=== PATIENT | female | born 1950 | race Caucasian/White ===

== ENCOUNTER 2019-12-20 03:49 | Emergency (ER) | payer MEDICARE, SELFPAY ==
--- NOTE | ~2019-12-20 | XR_ITS ---
XR hip LT 2V w AP pelvis 12/20/2019 05:08 Indication: Left hip pain. Recent fall. Procedure: 4 views of the left hip including AP pelvis Comparison: No prior studies for comparison. Findings: There is lower lumbar spondylosis. There are mild degenerative changes of the hips. No acut e fracture or traumatic malalignment. Impression: 1: No acute fracture. Reviewed, dictated and finalized at location A. AL AND STOCK ASSOCIATE Impression: 1: No acute fracture.
[2019-12-20 03:50] VITALS: BP 185/71; PULSE 88; RESP 20; TEMP 36.6; O2SAT 100
--- NOTE | 2019-12-20 04:51 | ED.LOWEXIN ---
HPI - Extremity Injury (Lower) General Chief Complaint: Extremity Injury, Lower Stated Complaint: L HIP PAIN Time Seen by Provider: 12/20/19 04:15 History of Present Illness HPI Narrative: She fell onto her left hip 12 days ago at [facility] and was seen there at that time. She had x-rays done then, which were negative. She was later seen by her PCP and prescribed norco,which she says is not working. She was also set up with physical therapy. She came in today, because she says the pain is no better. it is in her left hip and radiates down the left leg. She says that she is barely able to walk due to pain. She was noted to have walked in from the car. Related Data Home Medications Medication Instructions Recorded Confirmed escitalopram oxalate 20 mg tablet 20 mg PO DAILY tablet 09/25/19 amlodipine 10 mg tablet 10 mg PO DAILY 10/26/19 aspirin 325 mg tablet,delayed 325 mg PO DAILY 10/26/19 release clopidogrel 75 mg tablet 75 mg PO DAILY 10/26/19 fenofibrate nanocrystallized 145 145 mg PO DAILY 10/26/19 mg tablet insulin aspar prt-insulin aspart See Rx Instructions .ROUTE .COMPLEX 10/26/19 100 unit/mL (70-30) subcutaneous soln levothyroxine 175 mcg tablet 175 mcg PO DAILY 10/26/19 pantoprazole 40 mg tablet,delayed 40 mg PO DAILY tablet 10/26/19 release pravastatin 80 mg tablet 80 mg PO DAILY 10/26/19 budesonide 3 mg PO DAILY 11/30/19 diphenoxylate-atropine 1 tablet PO TID PRN 11/30/19 gabapentin 300 mg capsule 300 mg PO .daily at bedtime cap 12/06/19 ergocalciferol (vitamin D2) 1,250 50,000 unit PO WEEKLY 12/08/19 mcg (50,000 unit) capsule Allergies Allergy/AdvReac Type Severity Reaction Status Date / Time Cephalosporins Allergy Mild Rash Verified 12/20/19 03:56 phenylephrine Allergy Mild Unknown Verified 12/20/19 03:56 pyrilamine Allergy Mild Unknown Verified 12/20/19 03:56 adhesive tape Allergy Unknown Rash Verified 12/20/19 03:56 cefaclor Allergy Unknown Unknown Verified 12/20/19 03:56 chlorpheniramine Allergy Unknown Unknown Verified 12/20/19 03:56 erythromycin base Allergy Unknown Unknown Verified 12/20/19 03:56 Penicillins Allergy Unknown Unknown Verified 12/20/19 03:56 Sulfa (Sulfonamide Allergy Unknown Unknown Verified 12/20/19 03:56 Antibiotics) atorvastatin AdvReac Mild Muscle Verified 12/20/19 03:56 Spasms AZATADINE MALEATE Allergy Unknown Dyspnea / Uncoded 05/20/19 09:18 SOB CHLORPHENIRAMINE TANNATE Allergy Unknown Dyspnea / Uncoded 05/20/19 09:18 SOB METOCLOPRAMIDE HCL Allergy Unknown Palpitation Uncoded 05/20/19 09:18 s PHENYLEPHRINE TANNATE Allergy Unknown Dyspnea / Uncoded 05/20/19 09:18 SOB PSEUDOEPHEDRINE SULFATE Allergy Unknown Dyspnea / Uncoded 05/20/19 09:18 SOB PYRILAMINE TANNATE Allergy Unknown Dyspnea / Uncoded 05/20/19 09:18 SOB SURGICAL TAPE AdvReac Mild BLISTERS Uncoded 05/29/18 14:46 Review of Systems Review of Systems: All systems reviewed & are unremarkable except as noted in HPI and below Constitutional: Constitutional: Denies fever(s) and Denies weakness Eyes: Eyes: Denies change in vision Cardiovascular: Cardiovascular: Denies chest pain Respiratory: Respiratory: Denies wheezing Gastrointestinal: Gastrointestinal: Denies nausea Genitourinary: Genitourinary: Denies dysuria Musculoskeletal: Musculoskeletal: Reports back pain PMFSH Past Medical History Medical History A-fib Aneurysm Anxiety Arthritis Asthma Bronchitis CAD (coronary artery disease) Carpal tunnel syndrome Chronic colitis Depression Diabetes type 2, controlled Falls frequently Fibromyalgia GERD (gastroesophageal reflux disease) HLD (hyperlipidemia) HTN (hypertension) Hypothyroidism IBS (irritable bowel syndrome) Memory problem Peripheral neuropathy Pneumonia Sleep apnea UTI (urinary tract infection) Ventral hernia Surgical History Surgical History (Reviewed 12/20/19
[2019-12-20 05:50] VITALS: BP 148/77; PULSE 98; RESP 18; O2SAT 98
== END 2019-12-20 05:52 | disposition home or self-care (01) ==
PROVIDERS: Emergency Provider Emergency Medicine; PCP Emergency Medicine
DX: M25.552 Pain in left hip (principal); I48.91 Unspecified atrial fibrillation; M19.90 Unspecified osteoarthritis, unspecified site; J45.909 Unspecified asthma, uncomplicated; I25.10 Atherosclerotic heart disease of native coronary artery without angina pectoris; E11.42 Type 2 diabetes mellitus with diabetic polyneuropathy; M79.7 Fibromyalgia; K21.9 Gastro-esophageal reflux disease without esophagitis; E78.5 Hyperlipidemia, unspecified; I10 Essential (primary) hypertension; E03.9 Hypothyroidism, unspecified; K58.9 Irritable bowel syndrome, unspecified; G47.30 Sleep apnea, unspecified; F41.9 Anxiety disorder, unspecified; F32.9 Major depressive disorder, single episode, unspecified; Z87.440 Personal history of urinary (tract) infections; Z98.84 Bariatric surgery status; Z87.891 Personal history of nicotine dependence; Z79.82 Long term (current) use of aspirin; Z79.4 Long term (current) use of insulin
CPT/HCPCS: 73502; 73521; 99283

== ENCOUNTER 2020-01-21 12:58 | Inpatient (IN) | payer MEDICARE, SELFPAY ==
[2020-01-21] VITALS (15 sets, daily range): BP systolic 136–172; BP diastolic 56–99; PULSE 60–80; RESP 11–25; TEMP 36.3–36.6; O2SAT 89–100; BMI 34.4
--- NOTE | ~2020-01-21 | US_ITS ---
EXAMINATION: US carotid duplex BI EXAM DATE: 01/22/2020 17:42 INDICATION: Stroke. TECHNIQUE: Grayscale, color and pulsed Doppler images of the cervical carotid arteries were obtained . The degree of vessel stenosis is placed in one of the following categories: normal, <50% stenosis, 50-69% stenosis, >=70% stenosis but less than near-occlusion, near-occlusion, or occlusion. Note that percent stenosis relative to normal distal artery lumen diameter is indirectly measured from velocit y measurements as described by Thompson, et al. Radiology 2003; 229:340-346. There is no prior study fo r comparison. FINDINGS: RIGHT SIDE: Right common carotid artery peak systolic velocity (PSV in cm/s): 68 Right bulb/internal carotid artery peak systolic velocity (PSV in cm/s): 10 Right internal carotid artery end diastolic velocity (EDV in cm/s): 48 Right ICA/CCA peak systolic ratio: 0.7 Right external carotid artery peak systolic velocity (PSV in cm/s): 139 Right vertebral artery antegrade flow: yes There is mild carotid bulb plaque. Velocity and Doppler waveforms in the common and internal carotid arteries is normal. LEFT SIDE: Left common carotid artery peak systolic velocity (PSV in cm/s): 95 Left bulb/internal carotid artery peak systolic velocity (PSV in cm/s): 94 Left internal carotid artery end diastolic velocity (EDV in cm/s): 6 Left ICA/CCA peak systolic ratio: 1.0 Left external carotid artery peak systolic velocity (PSV in cm/s): 79 Left vertebral artery antegrade flow: yes There is minimal carotid bulb plaque. Velocity and Doppler waveforms in the common and internal carotid arteries is normal. IMPRESSION: 1. Less than 50 percent stenosis in the right internal carotid artery. 2. Less than 50 percent stenosis in the left internal carotid artery. Reviewed, dictated and finalized at location A. E PAPER HAMMERMILL OPERATOR
--- NOTE | ~2020-01-21 | XR_ITS ---
XR chest 2V DATE: 01/21/2020 16:29 INDICATION: Dizziness. Frequent falls. Increased weakness. History of cardiac disease. TECHNIQUE: AP and lateral views COMPARISON: 03/12/2019 CT chest abdomen pelvis 07/15/2018 two-view chest FINDINGS: Heart size appears within normal range. environmental monitoring specialist device is noted in the left chest w all anteriorly. Aortic arch calcification. No pleural effusion or pulmonary vascular congestion or pneumothorax. The lungs are clear of infiltrate or consolidation. No hilar or mediastinal enlargement. IMPRESSION: No active cardiopulmonary disease Reviewed, dictated and finalized at location B. SURGEON
--- NOTE | ~2020-01-21 | MR_ITS ---
EXAMINATION: MR lumbar spine wo con EXAM DATE: 01/22/2020 19:55 INDICATION: Left leg weakness. TECHNIQUE: Multi-sequential, multiplanar MR images of the lumbar spine were obtained without contrast . Sagittal T1, T2, T2 fat saturation images. Axial T2 weighted images. Correlation is made to CT ab [facility] pelvis 11/30/2019. FINDINGS: There is acute appearing mild to moderate burst fracture of the L4 vertebral body (40% loss of height), new compared to CT scan from November. There is 2 to 3 mm retropulsion of the superior en dplate. Mild disc disease L1-2 and L2-3. The conus medullaris terminates at the T12-L1 level and has normal signal intensity and morphology. The vertebral bodies are aligned in the AP dimension. Ricardo joel soft tissue is unremarkable. Level by level evaluation: T12-L1: Disc does not extend beyond the endplate margin. Facet arthropathy: Mild. Neural foraminal stenosis: No stenosis. Central canal stenosis: No stenosis. L1-L2: There is a mild diffuse disc bulge. Facet arthropathy: Mild. Neural foraminal stenosis: Mild bilateral. Central canal stenosis: No stenosis. L2-L3: There is a moderate diffuse disc bulge. Facet arthropathy: Mild. Neural foraminal stenosis: Moderate left, mild to moderate right. Central canal stenosis: Mild to moderate. L3-L4: There is a mild to moderate diffuse disc bulge. Facet arthropathy: Mild to moderate. Ligamentum flavum enlargement. Neural foraminal stenosis: Moderate to severe right, moderate left. Central canal stenosis: Moderate. L4-L5: There is a mild diffuse disc bulge. Facet arthropathy: Moderate. Neural foraminal stenosis: Moderate bilateral. Central canal stenosis: Mild to moderate. L5-S1: There is a mild diffuse disc bulge. Facet arthropathy: Moderate. Neural foraminal stenosis: Mild bilateral. Central canal stenosis: Mild. IMPRESSION: 1. Acute L4 burst fracture, mild to moderate loss of height. 2. Lumbar spondylosis as detailed above. Reviewed, dictated and finalized at location A. RTISING VICE PRESIDENT
--- NOTE | ~2020-01-21 | MR_ITS ---
EXAMINATION: MR brain/brain stem wo/w con EXAM DATE: 01/22/2020 19:54 INDICATION: Left-sided hemiparesis. TECHNIQUE: Magnetic resonance imaging (MRI) of the brain/brain stem obtained without contrast. Sagit mahendra T1, axial diffusion, gradient echo (T2*), T1, T2, FLAIR sequences obtained. Patient was then inj ected with 16 cc intravenous Multihance contrast. Axial and coronal postcontrast T1 weighted sequence s obtained. Comparison is made to prior examination from 09/08/2015. FINDINGS: Punctate region of restricted diffusion in the right side of the moe, probably acute infar ction. There is large old right posterior cerebral artery infarction. There is an old right basal zac glia lacunar infarction. No acute intraparenchymal hemorrhage or brain mass. No extra-axial collectio ns or obstructive hydrocephalus. There is moderate microangiopathy and mild cerebral atrophy. Flow vo ids are seen in the cerebral arteries on the T2 weighted sequences consistent with their expected pat ency. Orbits and soft tissues are unremarkable. IMPRESSION: 1. Punctate acute right pontine infarction. 2. Large old right PAYROLL LEAD, basal ganglia lacunar infarctions. 3. Age-related findings. Reviewed, dictated and finalized at location A. MIXER HELPER
--- NOTE | ~2020-01-21 | MR_ITS ---
EXAMINATION: MR cervical spine wo con EXAM DATE: 01/22/2020 19:55 INDICATION: Left hand weakness. TECHNIQUE: Multi-sequential, multiplanar MR images of the cervical spine were obtained without contra st. Axial T2, axial T2 MERGE sequence. Sagittal T1, T2, T2 fat saturation images also obtained. Cor relation is made to CT cervical spine 03/12/2019. FINDINGS: There is moderate disc disease C4-C7. There is moderate central canal stenosis at C4-5 wit h increased cord T2 signal, appearance could indicate mild cord edema. Can't exclude some component o f chronic encephalomalacia. Patient might benefit from steroid administration and consider neurosurgi sunshnie consult. There is a hemangioma in the T3 vertebral body. Paraspinal soft tissue is unremarkable. Level by level evaluation: C2-C3: Disc does not extend beyond the endplate margin. Uncovertebral joint arthropathy: Mild right. Facet joint arthropathy: Mild bilateral. Neural foraminal stenosis: No stenosis. Central canal stenosis: No stenosis. C3-C4: Disc does not extend beyond the endplate margin. Uncovertebral joint arthropathy: Mild bilateral. Facet joint arthropathy: Mild bilateral. Neural foraminal stenosis: Mild right. Central canal stenosis: No stenosis. C4-C5: There is a mild to moderate diffuse disc bulge. Uncovertebral joint arthropathy: Severe right, moderate left. Facet joint arthropathy: Mild bilateral. Neural foraminal stenosis: Severe right, moderate left. Central canal stenosis: Moderate. Central canal measures 5 mm in mid sagittal AP diameter . C5-C6: There is a mild diffuse disc bulge. Uncovertebral joint arthropathy: Moderate to severe bilateral. Facet joint arthropathy: Mild bilateral. Neural foraminal stenosis: Mild to moderate bilateral. Central canal stenosis: Mild to moderate . Central canal measures 6-7 mm in mid sagittal AP diameter . C6-C7: There is a mild diffuse disc bulge. Uncovertebral joint arthropathy: Moderate to severe right, moderate left. Facet joint arthropathy: Minimal bilateral. Neural foraminal stenosis: Moderate bilateral, right greater than left. Central canal stenosis: No stenosis. C7-T1: Disc does not extend beyond the endplate margin. Uncovertebral joint arthropathy: Mild to moderate right, mild left. Facet joint arthropathy: Mild bilateral. Neural foraminal stenosis: Mild right. Central canal stenosis: No stenosis. IMPRESSION: 1. C4-5 moderate central canal stenosis with small region increased T2 cord signal which could be ed saloni, but can't exclude that this is chronic encephalomalacia. Consider steroid treatment, neurosurgic al evaluation. 2. Lesser spondylosis at other levels. Reviewed, dictated and finalized at location A. CULTURAL EDUCATION PROFESSOR IMPRESSION: 1. C4-5 moderate central canal stenosis with small region increased T2 cord si gnal which could be edema, but can't exclude that this is chronic encephalomala christopher. Consider steroid treatment, neurosurgical evaluation. 2. Lesser spondylosis at other levels.
--- NOTE | 2020-01-21 13:03 | ECG_ITS ---
Measurements Intervals [place] Rate: 71 P: -46 DC: 141 QRS: 26 QRSD: 83 T: 14 QT: 388 QTc: 423 Interpretive Statements SINUS RHYTHM BASELINE ARTIFACT- I, II, III, AVR, AVL, AVF, V1-V5 BORDERLINE ECG Electronically Signed On 01-21-2020 13:19:05 CHISELER HEAD by Moises Cuello D.O.
[2020-01-21 13:24] LABS: Basophils Percent Auto 0.5 % (0.2-1.2); Eosinophils Percent Auto 0.4 % (0-4.4); Hematocrit 46.1 % (37.0-47.0); Hemoglobin 14.3 g/dL (12.0-15.0); Immature Granulocyte Absolute 0.03 K/mm3 (0.00-0.031); Immature Granulocyte Percent A 0.4 % (0-0.5); Lymphocytes Absolute Auto 1.69 K/mm3 (0.9-3.2); Lymphocytes Percent Auto 22.2 % (18.3-44.2); Mean Corpuscular Hemoglobin 25.8 pg (26-34); Mean Corpuscular Volume 83.2 fl (80-100); Mean Platelet Volume 10.6 fl (7.4-10.4); Monocytes Absolute Auto 0.4 K/mm3 (0.1-0.6); Monocytes Percent Auto 5.5 % (2.6-8.5); Neutrophils Absolute Auto 5.4 K/mm3 (1.3-6.7); Platelet Count Result 209 k/mm3 (150-375); Red Blood Count 5.54 M/mm3 (4.2-5.4); Red Cell Distribution Width 14.6 % (11.5-14.5); White Blood Count 7.6 K/mm3 (4.5-10.0)
[2020-01-21 13:40] LABS: Alanine Aminotransferase 19 U/L (4-35); Albumin Level 3.9 g/dL (3.5-5.1); Alkaline Phosphatase 97 U/L (38-126); Aspartate Amino Transferase 19 U/L (14-36); Bilirubin,Total 0.5 mg/dL (0.2-1.3); Blood Urea Nitrogen 13 mg/dL (7-17); Calcium 9.7 mg/dL (8.4-10.2); Carbon Dioxide 34 mmol/L (22-30); Chloride 99 mmol/L (98-107); Estimated Glomerular Filt Rate > 60; Glucose 183 mg/dL (65-105); Potassium 4.2 mmol/L (3.4-5.0); Sodium 137 mmol/L (137-145)
--- NOTE | 2020-01-21 14:28 | ED.WEAKNESS ---
HPI - Weakness General Chief complaint: Weakness Stated complaint: Falls Time Seen by Provider: 01/21/20 14:28 Source: patient Mode of arrival: ambulatory Limitations: no limitations History of Present Illness HPI Narrative: Pt is a 69 y/o female who presents to the ED with c/o generalized weakness that started in November 2019 and has been worsening in the last 2 weeks. Pt states that she fell on concrete in November while at [facility] for a scheduled angiogram. Pt was getting an angiogram of her rt brain aneurysm that she has coiled. Her scans came back negative. Pt had scans of her back after falling that came back negative. She followed up with her PCP, Dr. Armstrong who Rx her Hydrocodone for her back pain. Pt states that it helped the pain and she was referred to a pain management doctor. She got injection in her back and hips, but she has been feeling more weak and the injections have not been helping. She states that it has gotten so bad that she cannot get up off the toilet on her own adn can barely walk with her cane. Pt is scheduled to get a MRI and is supposed to start PT but she states she feels too weak to start PT. She reports dizziness when standing and states that she has been urinating normally. Pt has a H/O chronic diarrhea and notes her last BM was diarrhea and it was 2 days ago. Complaint: generalized weakness Onset (ago): month(s) (3) Duration: progressively worsening Location: generalized Context: trauma/injury (back injury) Associated symptoms: other (dizziness) Related Data Home Medications Medication Instructions Recorded Confirmed escitalopram oxalate 20 mg tablet 20 mg PO DAILY tablet 09/25/19 amlodipine 10 mg tablet 10 mg PO DAILY 10/26/19 aspirin 325 mg tablet,delayed 325 mg PO DAILY 10/26/19 release clopidogrel 75 mg tablet 75 mg PO DAILY 10/26/19 fenofibrate nanocrystallized 145 145 mg PO DAILY 10/26/19 mg tablet insulin aspar prt-insulin aspart See Rx Instructions .ROUTE .COMPLEX 10/26/19 100 unit/mL (70-30) subcutaneous soln levothyroxine 175 mcg tablet 175 mcg PO DAILY 10/26/19 pantoprazole 40 mg tablet,delayed 40 mg PO DAILY tablet 10/26/19 release pravastatin 80 mg tablet 80 mg PO DAILY 10/26/19 budesonide 3 mg PO DAILY 11/30/19 diphenoxylate-atropine 1 tablet PO TID PRN 11/30/19 gabapentin 300 mg capsule 300 mg PO .daily at bedtime cap 12/06/19 ergocalciferol (vitamin D2) 1,250 50,000 unit PO WEEKLY 12/08/19 mcg (50,000 unit) capsule Allergies Allergy/AdvReac Type Severity Reaction Status Date / Time Cephalosporins Allergy Mild Rash Verified 12/20/19 03:56 phenylephrine Allergy Mild Unknown Verified 12/20/19 03:56 pyrilamine Allergy Mild Unknown Verified 12/20/19 03:56 adhesive tape Allergy Unknown Rash Verified 12/20/19 03:56 cefaclor Allergy Unknown Unknown Verified 12/20/19 03:56 chlorpheniramine Allergy Unknown Unknown Verified 12/20/19 03:56 erythromycin base Allergy Unknown Unknown Verified 12/20/19 03:56 Penicillins Allergy Unknown Unknown Verified 12/20/19 03:56 Sulfa (Sulfonamide Allergy Unknown Unknown Verified 12/20/19 03:56 Antibiotics) atorvastatin AdvReac Mild Muscle Verified 12/20/19 03:56 Spasms AZATADINE MALEATE Allergy Unknown Dyspnea / Uncoded 05/20/19 09:18 SOB CHLORPHENIRAMINE TANNATE Allergy Unknown Dyspnea / Uncoded 05/20/19 09:18 SOB METOCLOPRAMIDE HCL Allergy Unknown Palpitation Uncoded 05/20/19 09:18 s PHENYLEPHRINE TANNATE Allergy Unknown Dyspnea / Uncoded 05/20/19 09:18 SOB PSEUDOEPHEDRINE SULFATE Allergy Unknown Dyspnea / Uncoded 05/20/19 09:18 SOB PYRILAMINE TANNATE Allergy Unknown Dyspnea / Uncoded 05/20/19 09:18 SOB SURGICAL TAPE AdvReac Mild BLISTERS Uncoded 05/29/18 14:46 Review of Systems Review of Systems: All systems reviewed & are unremarkable except as noted in HPI and below Constitutional: Constitutional: Reports weakness (generalized) Genitourinary: Genitourinary: Denies o
[2020-01-21 15:05] LABS: Creatine Kinase 21 U/L (30-135); Magnesium 1.8 mg/dL (1.6-2.3)
[2020-01-21 15:40] LABS: Thyroid Stimulating Hormone Reflex 0.966 uIU/mL (0.465-4.68)
[2020-01-21 16:07] LABS: Add Urine Microscopic? YES; Appearance Urine Clear (Clear); Bilirubin Urine Negative (Negative); Blood Urine Negative (Negative); Color Urine Straw (Yellow); Glucose Urine UA Negative (Negative); Ketones Urine Negative (Negative); Leukocyte Esterase Ur Negative LEU/UL (Negative); Mucus Urine Rare /lpf; Nitrate Urine Negative (Negative); Protein Urine 2+ mg/dL (Negative); RBC Urine 0-2 /hpf (0-2); Specific Grav Ur 1.012 (1.001-1.035); Squamous Epithelial Cell Urine Rare /hpf (Few); Urobilinogen Urine Negative mg/dL (<2.0); WBC Urine 0-3 /hpf
--- NOTE | 2020-01-21 18:00 | PC.NURSE ---
This patient, Tamiko Leija, was admitted to [facility] Surg Room 330-01. Patient/family oriented to hospital policies and general routines including ID bracelet, bed and alarms, visiting hours, pain management, procedures, bathroom and other care routines, personal items, smoking policy, room service/diet, and visiting hours. Valuables list has been completed. Information on how to activate the Rapid Response Team has been discussed. Patient/Family are encouraged to report perceived risks to care and to ask questions if they do not understand what they are told or what they should do.
[2020-01-21 23:08] LABS: Glucose Point of Care 210 (65-105)
[2020-01-21] MEDS: TRAMADOL HCL 50 MG TABLET PO (23:55)
[2020-01-22 06:00] VITALS: BP 157/59; PULSE 59; RESP 20; TEMP 36.4; O2SAT 99
[2020-01-22] MEDS: LEVOTHYROXINE SODIUM 100 MCG TABLET PO (06:12)
[2020-01-22] MEDS: LEVOTHYROXINE SODIUM 75 MCG TABLET PO (06:12)
[2020-01-22 07:27] LABS: Glucose Point of Care 174 (65-105)
[2020-01-22] MEDS: AMLODIPINE BESYLATE 5 MG TABLET 10 MG PO (08:19)
[2020-01-22] MEDS: PANTOPRAZOLE 40 MG TABLET PO (08:19)
[2020-01-22] MEDS: ESCITALOPRAM OXALATE 10 MG TABLET 20 MG PO (08:19)
[2020-01-22] MEDS: FENOFIBRATE NANOCRYSTALLIZED 145 MG TABLET PO (08:19)
[2020-01-22] MEDS: PRAVASTATIN SODIUM 20 MG TABLET 80 MG PO (08:19)
[2020-01-22] MEDS: CLOPIDOGREL BISULFATE 75 MG TABLET PO (08:19)
[2020-01-22 11:13] LABS: Glucose Point of Care 182 (65-105)
[2020-01-22] MEDS: ALPRAZOLAM 0.5 MG TABLET PO (12:44)
--- NOTE | 2020-01-22 13:04 | PM.IMHP ---
H&P: HPI History of Present Illness Chief complaint: Generalized weakness/low back pain Narrative: Tamiko Leija is a 69 year old female with history of CVA here for left-sided weakness. Patient had 2 strokes in 2012 and in 2015. She had left-sided weakness from this. She is also legally blind in the left eye. She no longer drives. Shows a history of brain aneurysms that had been coiled x2. She was at [facility] in November when she fell on the concrete with head injury. She was there for an angiogram which was completed that day. She states the scans showing no change. She then went to the emergency room and was evaluated and released. Since that time patient states that she has been having worsening weakness in her extremities mostly in the legs. She was seen by pain management and had an injection in the hip for bursitis and also in the low back. An MRI is planned of her lumbar spine. She also was given a back brace. Over the past 2 weeks patient has noted increasing weakness. She has been having trouble standing and when she does stand her legs give out. Left seems to worsen the right. Yesterday morning patient had trouble getting up out of bed from a sitting position. She was helped up by her family and brought to the toilet. After voiding she again was unable to stand off the toilet and had a fall. They were able to get her up. She does complain of dizziness when she rises from to a sitting or standing position. She continues to have the low back pain. Today she states that her left hand is weak as well which is a new finding. This is been going on for the past few days. She is on Plavix chronically. She was taking aspirin but this was stopped in November. Because of the recent fall and continue weakness she was brought to the emergency room evaluation. In the emergency room, patient was hemodynamically stable. X-ray is clear. No CT of the brain was performed. She states her coils are MRI compatible. Labs were unrevealing Ext except for hyperglycemia. She was admitted for further care. Review of Systems Review of Systems: Narrative: Gen - No fever or chills Eye - no double vision or vision changes. 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 ENT - no hearing loss, tinnitus, odynophagia or dysphagia CV - no chest pain or palpitation Pulm - no shortness of breath or cough. She does have sleep apnea but does not wear CPAP. Says her unit broke and has not been repaired yet. GI -no nausea or vomiting. Eating okay. She has chronic diarrhea has been diagnosed with chronic colitis possibly inflammatory bowel disease. Also she states that she had an imaging study showing possible cirrhosis and she has an appointment to have this worked up. No melena. Colonoscopy in October showing colitis - no dysuria or hematuria. Neuro -as above Endo -10 lb weight loss over the past month. She has had decreased intake. Psych -her depression and anxiety symptoms are well controlled. Mood is stable. No suicidal or homicidal ideation. [facility] Past Medical History Medical History A-fib Aneurysm Brain s/p coiling x2 Anxiety Arthritis Asthma Bronchitis CAD (coronary artery disease) pateint states LHC was clear Carpal tunnel syndrome Chronic colitis Depression Diabetes type 2, controlled Falls frequently Fibromyalgia GERD (gastroesophageal reflux disease) History of CVA (cerebrovascular accident) 2012 and 2015 HLD (hyperlipidemia) HTN (hypertension) Hypothyroidism IBS (irritable bowel syndrome) Memory problem Peripheral neuropathy Pneumonia Sleep apnea UTI (urinary tract infection) Ventral hernia Surgical History Surgical History History of carpal tunnel surgery History of hysterectomy History of removal of cyst Hx of appendectomy Hx of cardiac catheterization Hx of cholecystectomy Hx of laparoscopic gastric
[2020-01-22 14:37] VITALS: BP 141/46; PULSE 63; RESP 16; TEMP 36.4; O2SAT 97
--- NOTE | 2020-01-22 14:58 | ECHO_ITS ---
Patient Info Name: Tamiko Leija Age: 69 years : 1950 Gender: Female Ht: 61 in Wt: 182 lbs BSA: 1.92 m2 HR: 60 bpm BP: 157 / 59 mmHg Technical Quality: Good Exam Date: 01/22/2020 2:20 PM Exam Location: [facility] Patient Status: Outpatient Admit Date: 01/21/2020 Staff Ordering Physician: Jose Haskins MD Hemotherapist: Rafita Gold, RAYNE, RT Attending Provider: Jose Haskins MD Exam Type: CA echo doppler color flow Study Info Indications G45.9 - Transient cerebral ischemic attack, unspecified Complete two-dimensional, color flow and Doppler transthoracic echocardiogram is performed. Summary 1. Left ventricular chamber dimension is normal. 2. Left ventricular systolic function is normal, estimated at 65-70%. 3. The left ventricular diastolic function is abnormal. 4. E/e' 11 is mildly elevated. 5. Global longitudinal strain is mildly abnormal at -16.3%. Left Ventricle E/e' 11 is mildly elevated. Global longitudinal strain is mildly abnormal at -16.3%. Left ventricular chamber dimension is normal. Left ventricular systolic function is normal, estimated at 65-70%. The left ventricular diastolic function is abnormal. Right Ventricle Right ventricular chamber dimension is normal. Right ventricular systolic function is normal. Left Atria Left atrial chamber dimension is normal. Right Atria Right atrial chamber dimension is normal. Aortic Valve The aortic valve is trileaflet. There is no aortic valve stenosis. There is no aortic valve regurgitation. Pulmonic Valve There is no pulmonic regurgitation. Mitral Valve There is no mitral valve stenosis. There is no mitral valve regurgitation. Tricuspid Valve There is no tricuspid valve regurgitation. Pericardium/Pleural There is no pericardial effusion. Inferior Vena Cava Normal inferior vena cava with >50% collapse upon inspiration consistent with normal right atrial pressure, 5 mmHg. Aorta The aortic root size at the sinus of Valsalva is normal. Left Ventricular Outflow Tract Name Value Normal LVOT 2D LVOT Diameter 1.9 cm LVOT Doppler LVOT Peak Gradient 5 mmHg LVOT Mean Gradient 2 mmHg LVOT VTI 29 cm LVOT VTI/AV VTI Ratio 0.8 LVOT Stroke Volume 82 ml LVOT CO 4.6 l/min LVOT CI 2.4 l/min/m2 Pulmonic Valve Name Value Normal PV Doppler PV Peak Gradient 4 mmHg Mitral Valve Name Value Normal MV Doppler
[2020-01-22 16:00] VITALS: PULSE 61
[2020-01-22 16:18] LABS: Glucose Point of Care 138 (65-105)
[2020-01-22 20:59] LABS: Ammonia < 9 umol/L (9-30)
[2020-01-22 21:00] VITALS: PULSE 70
[2020-01-22 22:00] VITALS: BP 147/77; PULSE 70; RESP 16; TEMP 36.4; O2SAT 96
[2020-01-22 22:04] LABS: Folic Acid 9.7 ng/mL (2.76->20)
[2020-01-22 23:15] LABS: Glucose Point of Care 247 (65-105)
[2020-01-23] VITALS (14 sets, daily range): BP systolic 144–184; BP diastolic 67–86; PULSE 52–93; RESP 16–20; TEMP 36.4–36.6; O2SAT 91–97
[2020-01-23] MEDS: LEVOTHYROXINE SODIUM 100 MCG TABLET PO (06:31)
[2020-01-23] MEDS: LEVOTHYROXINE SODIUM 75 MCG TABLET PO (06:31)
[2020-01-23 07:58] LABS: Glucose Point of Care 56 (65-105)
[2020-01-23] MEDS: FENOFIBRATE NANOCRYSTALLIZED 145 MG TABLET PO (08:42)
[2020-01-23] MEDS: AMLODIPINE BESYLATE 5 MG TABLET 10 MG PO (08:42)
[2020-01-23] MEDS: PANTOPRAZOLE 40 MG TABLET PO (08:42)
[2020-01-23] MEDS: CLOPIDOGREL BISULFATE 75 MG TABLET PO (08:42)
[2020-01-23] MEDS: ESCITALOPRAM OXALATE 10 MG TABLET 20 MG PO (08:43)
[2020-01-23] MEDS: methylPREDNISolone SOD SUCC 125 MG VIAL 60 MG IV PUSH (09:05)
[2020-01-23] MEDS: ASPIRIN 81 MG CHEWABLE TABLET PO (09:07)
[2020-01-23 10:02] LABS: Glucose Point of Care 132 (65-105)
[2020-01-23 10:02] LABS: Glucose Point of Care 73 (65-105)
[2020-01-23] MEDS: ATORVASTATIN 40 MG TABLET PO (11:37)
[2020-01-23 11:44] LABS: Glucose Point of Care 218 (65-105)
[2020-01-23] MEDS: INSULIN ASPART (*BKC) 100 UNITS/ML SUB-Q (12:03)
--- NOTE | 2020-01-23 12:06 | PM.IMPN ---
Progress Note: A&P Assessment and Plan (1) Acute CVA (cerebrovascular accident): Code(s): I63.9 - Cerebral infarction, unspecified Status: Acute Assessment and Plan: Brain MRI showing a new punctate right pontine infarct. This is most likely causing the left hand weakness. She is already on Plavix. Hx of AFib but transient and not felt to be paroxysmal. Was on ASA but stopped in November. Will resume today. Will also change from Pravachol to Crestor (chose Lipitor but she has had problems with Lipitor in the past). Echo okay. Carotids clear. TRC consult. Continue PT/OT. Eating normally so do not feel she needs ST. Neuro consult. Continue tele. (2) Cervical spinal cord compression: Code(s): G95.20 - Unspecified cord compression Status: Acute Assessment and Plan: MRI showing C4-5 moderate central canal stenosis with small region of increased T2 cord signal which could be edema. She also has moderate to severe neural foraminal stenosis (but severe is on the right). She was started on steroids. Discussed with Dr Rose who is the patient's neurologist. The above findings discussed as well as patient's current condition. He agreed with steroids and recommended rehab in the short term since patient has had a recent stroke. Neuro consult. TRC consult. Continue PT/OT (3) L4 vertebral fracture: Code(s): S32.049A - Unspecified fracture of fourth lumbar vertebra, initial encounter for closed fracture Status: Acute Assessment and Plan: MRI of the lumbar spine showing L4 burst fracture. She has mild pain today. Will continue therapy as tolerated. (4) Generalized weakness: Code(s): R53.1 - Weakness Status: Acute Assessment and Plan: Weakness mostly in the lower extremities per patient. Possibly related to the cervical spine findings or possibly from the moderate lumbar central canal stenosis. She also has sevee right and moderate left L3-4 neural foraminal stenosis. (5) Falls frequently: Code(s): R29.6 - Repeated falls Status: Acute Assessment and Plan: Suspect related to old CVA and related to above. (6) Cirrhosis of liver: Code(s): K74.60 - Unspecified cirrhosis of liver Status: Acute (7) HTN (hypertension): Code(s): I10 - Essential (primary) hypertension Status: Acute Assessment and Plan: BP reviewed on 01/23/20. BP elevated at times. Will allow for permissive HTN given her recent stroke. Tighter control in 4-5 days. Add hydralazine for markedly elevated BP. (8) A-fib: Code(s): I48.91 - Unspecified atrial fibrillation Status: Acute Assessment and Plan: Hx of transient AFib. No evidence of recurrence by tele. Continue tele. 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 As above. Subjective Date/time seen: 01/23/20 12:06 Interval history: 69yo female with hx of CVA, pAFib and DM here for weakness. Yordann feels better. SHe is up to the chair. She walked to the BR with a walker. She feels like her left leg is giving out at times. She is eating normally. No CP or SOB. Lumbar pain worse after MRI (from the table) but better today. Left hand still feels weak and has trouble with gripping. Exam Narrative: Exam Narrative: Gen -NARD sitting up in chair feeding herself Chest - lungs CTA bilaterally, nml RR CV - RRR S1/S2; Tele showing no significnat dysrhythmias, no AFib Abd -soft. NT/ND, +BS Ext - No pedal edema. Neuro - alert, pleasant and cooperative. Psych -normal mood Skin - Warm and dry Objective Data Vital Signs Vital Signs: Vital Signs - 24 hr 01/22/20 14:37
[2020-01-23 12:20] LABS: Glucose Point of Care 280 (65-105)
--- NOTE | 2020-01-23 15:54 | PC.NURSE ---
0900 Patient in bed sleepy, wakes to name, oriented times four, no complaints, blood sugar 56, gave carton of milk, michelle crackers with peanut butte, ordered breakfast, blood sugar raised to 73 and up, see trend.
[2020-01-23] MEDS: TRAMADOL HCL 50 MG TABLET PO (17:29)
[2020-01-23 17:40] LABS: Glucose Point of Care > 500 (65-105)
[2020-01-23] MEDS: INSULIN ASPART (*BKC) 100 UNITS/ML 8 UNITS SUB-Q (17:55)
--- NOTE | 2020-01-23 18:41 | WPDNEURCNPN ---
Assessment and Plan Assessment and plan (1) Acute CVA (cerebrovascular accident): Code(s): I63.9 - Cerebral infarction, unspecified Status: Acute (2) Cervical spinal cord compression: Code(s): G95.20 - Unspecified cord compression Status: Acute (3) L4 vertebral fracture: Code(s): S32.049A - Unspecified fracture of fourth lumbar vertebra, initial encounter for closed fracture Status: Acute (4) History of CVA (cerebrovascular accident): Code(s): Z86.73 - Personal history of transient ischemic attack (TIA), and cerebral infarction without residual deficits Status: Acute (5) Generalized weakness: Code(s): R53.1 - Weakness Status: Acute (6) Low back pain: Code(s): M54.5 - Low back pain Status: Acute (7) Frequent falls: Code(s): R29.6 - Repeated falls Status: Acute (8) Hip strain: Qualifiers: Encounter type: sequela Laterality: left Qualified Code(s): S76.012S - Strain of muscle, fascia and tendon of left hip, sequela Code(s): S76.019A - Strain of muscle, fascia and tendon of unspecified hip, initial encounter Status: Acute (9) Falls frequently: Code(s): R29.6 - Repeated falls Status: Acute (10) Hip strain: Code(s): S76.019A - Strain of muscle, fascia and tendon of unspecified hip, initial encounter Status: Acute (11) Cirrhosis of liver: Code(s): K74.60 - Unspecified cirrhosis of liver Status: Acute (12) Memory problem: Code(s): R41.3 - Other amnesia Status: Acute (13) HLD (hyperlipidemia): Code(s): E78.5 - Hyperlipidemia, unspecified Status: Acute (14) HTN (hypertension): Code(s): I10 - Essential (primary) hypertension Status: Acute (15) Hypothyroidism: Code(s): E03.9 - Hypothyroidism, unspecified Status: Acute (16) IBS (irritable bowel syndrome): Code(s): K58.9 - Irritable bowel syndrome without diarrhea Status: Acute (17) A-fib: Code(s): I48.91 - Unspecified atrial fibrillation Status: Acute (18) Diarrhea: Qualifiers: Diarrhea type: unspecified type Qualified Code(s): R19.7 - Diarrhea, unspecified Code(s): R19.7 - Diarrhea, unspecified Status: Acute Additional Plan obviously she is not a candidate for any surgical maneuver on her spine as she has a recent stroke of moe superimposed on the previous history of having brain aneurysm coiling and also having stroke present management needs to be continued and I will fallow Consult date: 01/23/20 Time Seen: 18:00 HPI: Tamiko Leija is a 69 year old female Who is known to me from her previous hospitalization on the acute rehab couple of years ago when she recuperated from the stroke she is known to have had aneurysmal clipping or quite wing as she remembers and had strokes later on she did have an angiogram performed in November of 2019 and was told that everything seems to be okay more recently she has been diagnosed to have cirrhosis of the liver and 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 The reason she came into the hospital because of generalized weakness which has affected left side more so than the right side which was the weaker side to begin with. The patient has been found to have pontine stroke on the right side on top of the old strokes and has increased weakness of the left side she also has cervical canal stenosis which is most likely responsible for myelomalacia as seen on the MRI of the cervical spine but she is being treated as if this is some acute spinal cord injury with the steroid which has raised her blood sugar to quite high level on top of it since the patient had fallen in the bathroom while she was being helped by her and also the son-in-law she has a L4 burst fracture and is moderate amount of the pain. Overall she is stable without any further weakness she denies any headache and
[2020-01-23] MEDS: DEXAMETHASONE SOD PHOS INJ 4 MG/ML VIAL IV PUSH (19:00)
[2020-01-23 20:58] LABS: Glucose Point of Care 371 (65-105)
[2020-01-24] VITALS (8 sets, daily range): BP systolic 127–172; BP diastolic 57–73; PULSE 69–96; RESP 16–20; TEMP 36.2–36.7; O2SAT 93–100
[2020-01-24] MEDS: DEXAMETHASONE SOD PHOS INJ 4 MG/ML VIAL IV PUSH ×5 (00:46→23:18)
[2020-01-24] MEDS: TRAMADOL HCL 50 MG TABLET PO (03:16)
--- NOTE | 2020-01-24 03:45 | PC.NURSE ---
Daylight Savings Time For Daylight Savings Time Ending in the Fall - Clocks are moved back. For Daylight Savings Time Beginning in the Spring - Clocks are moved ahead. For [facility], the time of change occurs at 0200 hrs. Time is taken from the senior sql server dba. This entry on the patient's chart recognizes the change in time reflected during documentation. Example: 2 entries for vital signs may be charted for 0200 hrs.
[2020-01-24 03:51] LABS: Glucose Point of Care 381 (65-105)
[2020-01-24] MEDS: LEVOTHYROXINE SODIUM 75 MCG TABLET PO (06:51)
[2020-01-24] MEDS: LEVOTHYROXINE SODIUM 100 MCG TABLET PO (06:51)
[2020-01-24 07:37] LABS: Glucose Point of Care 334 (65-105)
[2020-01-24] MEDS: ASPIRIN 81 MG CHEWABLE TABLET PO (08:45)
[2020-01-24] MEDS: PANTOPRAZOLE 40 MG TABLET PO (08:45)
[2020-01-24] MEDS: FENOFIBRATE NANOCRYSTALLIZED 145 MG TABLET PO (08:45)
[2020-01-24] MEDS: ROSUVASTATIN 10 MG TABLET 20 MG PO (08:45)
[2020-01-24] MEDS: AMLODIPINE BESYLATE 5 MG TABLET 10 MG PO (08:46)
[2020-01-24] MEDS: ESCITALOPRAM OXALATE 10 MG TABLET 20 MG PO (08:46)
[2020-01-24] MEDS: INSULIN ASPART (*BKC) 100 UNITS/ML SUB-Q ×3 (08:46→18:03)
[2020-01-24] MEDS: CLOPIDOGREL BISULFATE 75 MG TABLET PO (08:46)
[2020-01-24 12:46] LABS: Glucose Point of Care 350 (65-105)
--- NOTE | 2020-01-24 16:01 | WPDNEUROPN ---
Progress Note: A&P Assessment and Plan (1) Acute CVA (cerebrovascular accident): Code(s): I63.9 - Cerebral infarction, unspecified Status: Acute (2) Cervical spinal cord compression: Code(s): G95.20 - Unspecified cord compression Status: Acute (3) L4 vertebral fracture: Code(s): S32.049A - Unspecified fracture of fourth lumbar vertebra, initial encounter for closed fracture Status: Acute (4) History of CVA (cerebrovascular accident): Code(s): Z86.73 - Personal history of transient ischemic attack (TIA), and cerebral infarction without residual deficits Status: Acute (5) Low back pain: Code(s): M54.5 - Low back pain Status: Acute (6) Frequent falls: Code(s): R29.6 - Repeated falls Status: Acute (7) Hip strain: Qualifiers: Encounter type: sequela Laterality: left Qualified Code(s): S76.012S - Strain of muscle, fascia and tendon of left hip, sequela Code(s): S76.019A - Strain of muscle, fascia and tendon of unspecified hip, initial encounter Status: Acute (8) Cirrhosis of liver: Code(s): K74.60 - Unspecified cirrhosis of liver Status: Acute (9) Memory problem: Code(s): R41.3 - Other amnesia Status: Acute (10) HLD (hyperlipidemia): Code(s): E78.5 - Hyperlipidemia, unspecified Status: Acute (11) HTN (hypertension): Code(s): I10 - Essential (primary) hypertension Status: Acute (12) Hypothyroidism: Code(s): E03.9 - Hypothyroidism, unspecified Status: Acute (13) IBS (irritable bowel syndrome): Code(s): K58.9 - Irritable bowel syndrome without diarrhea Status: Acute (14) A-fib: Code(s): I48.91 - Unspecified atrial fibrillation Status: Acute (15) Diarrhea: Qualifiers: Diarrhea type: unspecified type Qualified Code(s): R19.7 - Diarrhea, unspecified Code(s): R19.7 - Diarrhea, unspecified Status: Acute Additional Plan the patient has significant improvement however still needs therapies so she will be a good candidate for the acute rehab prior to considering any kind of surgical maneuver on her spine Review of Systems Review of Systems: All systems reviewed & are unremarkable except as noted in HPI and below Exam Const: General: comfortable and no acute distress HENMT: General nose exam: Normal nares present Mouth: Yes moist mucous membranes Eyes: General: appearance normal, both eyes and all related structures Neck: Neck: supple and no JVD Resp: Effort & Inspection: normal respiratory effort Auscultation: clear to auscultation bilaterally Cardio: Rate: regular rate Rhythm: regular rhythm GI: Auscultation: normal bowel sounds Skin: General skin exam: normal color and no rashes or lesions noted Neuro: Other: patient is awake alert well oriented time place and person is speech and language functions are normal left hemiparesis is better lower extremity weakness is also better and the pain in the lower back is better Extrem: General: normal to inspection Psych: Mental Status: mental status grossly normal Objective Data Vital Signs Vital Signs: Vital Signs - 24 hr 01/23/20 15:05 01/23/20 15:20 01/23/20 16:00 Temperature Pulse Rate 75 93 78 Respiratory Rate Blood Pressure 177/81 H 170/86 H Pulse Oximetry 01/23/20 20:00 01/23/20 22:22 01/24/20 00:00 Temperature 36.4 C L Pulse Rate 67 65 73 Respiratory Rate 20 Blood Pressure 184/74 H Pulse Oximetry 95 01/24/20 00:27 01/24/20 04:00 01/24/20 07:00 Temperature 36.2 C L 36.6 C Pulse Rate 96 94 71 Respiratory Rate 20 16 Blood Pressure 170/57 H 154/61 H Pulse Oximetry 97 93 01/24/20 08:00 01/24/20 12:00 Temperature Pulse Rate 78 71 Respiratory Rate Blood Pressure Pulse Oximetry Intake/Output Intake/Output: Intake & Output 01/21/20 01/22/20 01/23/20 01/25/20 23:59 23:59 23:5
--- NOTE | 2020-01-24 16:26 | PM.IMPN ---
Progress Note: A&P Assessment and Plan (1) Acute CVA (cerebrovascular accident): Code(s): I63.9 - Cerebral infarction, unspecified Status: Acute Assessment and Plan: Brain MRI showing a new punctate right pontine infarct. This is most likely causing the left hand weakness. Echo okay. Carotids clear. She is already on Plavix. Hx of AFib but transient and not felt to be paroxysmal. Was on ASA but stopped in November. ASA has been resumed. We changed from Pravachol to Crestor. TRC consult. Continue PT/OT. Awaiting placement. (2) Cervical spinal cord compression: Code(s): G95.20 - Unspecified cord compression Status: Acute Assessment and Plan: MRI showing C4-5 moderate central canal stenosis with small region of increased T2 cord signal which could be edema. She also has moderate to severe neural foraminal stenosis (but severe is on the right). She was started on steroids. Discussed with Dr Rose who is the patient's neurologist on 01/23/20. Appreciate neuro input. TRC consult ordered. Continue PT/OT. Continue PPI. (3) L4 vertebral fracture: Code(s): S32.049A - Unspecified fracture of fourth lumbar vertebra, initial encounter for closed fracture Status: Acute Assessment and Plan: MRI of the lumbar spine showing L4 burst fracture. Pain is controlled. Will continue therapy as tolerated. (4) Generalized weakness: Code(s): R53.1 - Weakness Status: Acute Assessment and Plan: Weakness mostly in the lower extremities per patient. Possibly related to the cervical spine findings or possibly from the moderate lumbar central canal stenosis. She also has severe right and moderate left L3-4 neural foraminal stenosis. Continue PT/OT (5) Diabetes type 2, controlled: Code(s): E11.9 - Type 2 diabetes mellitus without complications Status: Acute Assessment and Plan: Glucose running in the 200-300 range currently related to the steroids. Will advance her insulin regiment. (6) Falls frequently: Code(s): R29.6 - Repeated falls Status: Acute Assessment and Plan: Suspect related to old CVA and related to above. (7) Cirrhosis of liver: Code(s): K74.60 - Unspecified cirrhosis of liver Status: Acute Assessment and Plan: Hx of liver cirrhosis (8) HTN (hypertension): Code(s): I10 - Essential (primary) hypertension Status: Acute Assessment and Plan: BP reviewed on 01/24/20. BP elevated at times. Will allow for permissive HTN given her recent stroke. Tighter control in 4-5 days. Add hydralazine for markedly elevated BP. (9) A-fib: Code(s): I48.91 - Unspecified atrial fibrillation Status: Acute Assessment and Plan: Hx of transient AFib. No evidence of recurrence by tele. Okay to stop tele. 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 As above. Subjective Date/time seen: 01/24/20 16:26 Interval history: 69yo female with hx of CVA, pAFib and DM here for CVA. Patient feels better. She is up walking down the young. Still with ARMSTRONG. Left hand still weak and has trouble gripping the walker. Eating okay. No n/v. Exam Narrative: Exam Narrative: Gen -NARD Chest - lungs CTA bilaterally, nml RR CV - RRR S1/S2; Tele showing no AFib Abd -soft. NT/ND, +BS Ext - No pedal edema. Neuro - left hand crm developer 3/5 Psych -normal mood; in good spirits Skin - Warm and dry Objective Data Vital Signs Vital Signs: Vital Signs - 24 hr 01/23/20 16:00 01/23/20 20:00 01/23/20 22:22 Temperature 97.5 F L Pulse Rate 78 67 65 Respiratory Rate 20 Blood Pressure 184
[2020-01-24 17:45] LABS: Glucose Point of Care 287 (65-105)
[2020-01-24 22:37] LABS: Glucose Point of Care 307 (65-105)
[2020-01-24] MEDS: INSULIN ASPART (*BKC) 100 UNITS/ML 8 UNITS SUB-Q (23:17)
[2020-01-25] MEDS: LEVOTHYROXINE SODIUM 100 MCG TABLET PO (05:54)
[2020-01-25] MEDS: LEVOTHYROXINE SODIUM 75 MCG TABLET PO (05:54)
[2020-01-25] MEDS: DEXAMETHASONE SOD PHOS INJ 4 MG/ML VIAL IV PUSH ×4 (05:54→23:14)
[2020-01-25 06:00] VITALS: BP 144/56; PULSE 65; RESP 18; TEMP 36.4; O2SAT 97
[2020-01-25 07:07] LABS: Hemoglobin A1C 9.4 % (<5.7)
[2020-01-25 07:10] LABS: Blood Urea Nitrogen 29 mg/dL (7-17); Calcium 9.4 mg/dL (8.4-10.2); Carbon Dioxide 28 mmol/L (22-30); Chloride 102 mmol/L (98-107); Estimated CRCL calculation 63 ml/min; Estimated Glomerular Filt Rate > 60; Glucose 241 mg/dL (65-105); Potassium 4.1 mmol/L (3.4-5.0); Sodium 135 mmol/L (137-145)
[2020-01-25 07:59] LABS: Glucose Point of Care 248 (65-105)
[2020-01-25] MEDS: ASPIRIN 81 MG CHEWABLE TABLET PO (08:23)
[2020-01-25] MEDS: ROSUVASTATIN 10 MG TABLET 20 MG PO (08:23)
[2020-01-25] MEDS: FENOFIBRATE NANOCRYSTALLIZED 145 MG TABLET PO (08:23)
[2020-01-25] MEDS: ESCITALOPRAM OXALATE 10 MG TABLET 20 MG PO (08:24)
[2020-01-25] MEDS: CLOPIDOGREL BISULFATE 75 MG TABLET PO (08:24)
[2020-01-25] MEDS: AMLODIPINE BESYLATE 5 MG TABLET 10 MG PO (08:24)
[2020-01-25] MEDS: INSULIN ASPART (*BKC) 100 UNITS/ML SUB-Q ×3 (08:25→17:05)
[2020-01-25 09:23] LABS: Rapid Plasma Reagin Non-Reactive (NonReactive)
[2020-01-25] MEDS: PANTOPRAZOLE 40 MG TABLET PO (11:53)
[2020-01-25 11:55] LABS: Glucose Point of Care 281 (65-105)
[2020-01-25 14:00] VITALS: BP 138/48; PULSE 64; RESP 46; TEMP 36.4; O2SAT 96
[2020-01-25 17:17] LABS: Glucose Point of Care 301 (65-105)
--- NOTE | 2020-01-25 17:52 | PM.IMPN ---
Progress Note: A&P Assessment and Plan (1) Acute CVA (cerebrovascular accident): Code(s): I63.9 - Cerebral infarction, unspecified Status: Acute Assessment and Plan: Brain MRI showing a new punctate right pontine infarct. This is most likely causing the left hand weakness. Echo okay. Carotids clear. She is already on Plavix. Hx of AFib but transient and not felt to be paroxysmal. Was on ASA but stopped in November. ASA has been resumed. We changed her from Pravachol to Crestor. TRC consult. Continue PT/OT. Awaiting placement. (2) Cervical spinal cord compression: Code(s): G95.20 - Unspecified cord compression Status: Acute Assessment and Plan: MRI showing C4-5 moderate central canal stenosis with small region of increased T2 cord signal which could be edema. She also has moderate to severe neural foraminal stenosis (but severe is on the right). She was started on steroids. Discussed with Dr Rose who is the patient's neurologist on 01/23/20. Patient improving with steroids. Appreciate neuro input. TRC consult ordered. Continue PT/OT. Continue PPI. (3) L4 vertebral fracture: Code(s): S32.049A - Unspecified fracture of fourth lumbar vertebra, initial encounter for closed fracture Status: Acute Assessment and Plan: MRI of the lumbar spine showing L4 burst fracture. Pain is controlled. Will continue therapy as tolerated. (4) Generalized weakness: Code(s): R53.1 - Weakness Status: Acute Assessment and Plan: Weakness mostly in the lower extremities per patient. Possibly related to the cervical spine findings or possibly from the moderate lumbar central canal stenosis. She also has severe right and moderate left L3-4 neural foraminal stenosis. Sx better since starting the steroids. Continue PT/OT. TRC placement pending. (5) Diabetes type 2, controlled: Code(s): E11.9 - Type 2 diabetes mellitus without complications Status: Acute Assessment and Plan: A1c 9.4 Glucose still running in the 200-300 range related to the steroids and that she is poorly controlled at baseline. Will advance her insulin regiment again. (6) Falls frequently: Code(s): R29.6 - Repeated falls Status: Acute Assessment and Plan: Suspect related to old CVA and related to above. (7) Cirrhosis of liver: Code(s): K74.60 - Unspecified cirrhosis of liver Status: Acute Assessment and Plan: Hx of liver cirrhosis (8) HTN (hypertension): Code(s): I10 - Essential (primary) hypertension Status: Acute Assessment and Plan: BP reviewed on 01/25/20. BP elevated at times but improved. Will allow for permissive HTN given her recent stroke. Hydralazine available for markedly elevated BP. (9) A-fib: Code(s): I48.91 - Unspecified atrial fibrillation Status: Acute Assessment and Plan: Hx of transient AFib. No evidence of recurrence by tele. 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 Suspect the new left hand weakness is related to the new CVA. As above. Subjective Date/time seen: 01/25/20 17:52 Interval history: 69yo female with hx of CVA, pAFib and DM here for CVA. Slpet well last night. She is walking in the halls. Low back pain better as well. Left hand still weak. Exam Narrative: Exam Narrative: Gen -NARD Chest - CTA bilaterally, nml RR CV - RRR S1/S2 Abd - soft, NT/ND Ext - No pedal edema. Psych -normal mood; in good spirits Skin - Warm and dry Objective Data Vital Signs Vital Signs: Vital Signs - 24 hr 01/24/20 22:00 01/25/20 06:00
[2020-01-25 22:00] VITALS: BP 145/35; PULSE 62; RESP 18; TEMP 36.7; O2SAT 97
[2020-01-25 23:33] LABS: Glucose Point of Care 185 (65-105)
[2020-01-26] MEDS: LEVOTHYROXINE SODIUM 100 MCG TABLET PO (05:56)
[2020-01-26] MEDS: LEVOTHYROXINE SODIUM 75 MCG TABLET PO (05:56)
[2020-01-26] MEDS: DEXAMETHASONE SOD PHOS INJ 4 MG/ML VIAL IV PUSH ×2 (05:56→12:34)
[2020-01-26 06:00] VITALS: BP 150/75; PULSE 57; RESP 18; TEMP 36.1; O2SAT 100
[2020-01-26 07:35] LABS: Glucose Point of Care 150 (65-105)
[2020-01-26] MEDS: CLOPIDOGREL BISULFATE 75 MG TABLET PO (08:32)
[2020-01-26] MEDS: ESCITALOPRAM OXALATE 10 MG TABLET 20 MG PO (08:32)
[2020-01-26] MEDS: AMLODIPINE BESYLATE 5 MG TABLET 10 MG PO (08:32)
[2020-01-26] MEDS: PANTOPRAZOLE 40 MG TABLET PO (08:33)
[2020-01-26] MEDS: ASPIRIN 81 MG CHEWABLE TABLET PO (08:33)
[2020-01-26] MEDS: ROSUVASTATIN 10 MG TABLET 20 MG PO (08:33)
[2020-01-26] MEDS: FENOFIBRATE NANOCRYSTALLIZED 145 MG TABLET PO (08:33)
[2020-01-26] MEDS: INSULIN ASPART (*BKC) 100 UNITS/ML SUB-Q (12:38)
[2020-01-26 13:02] LABS: Glucose Point of Care 235 (65-105)
--- NOTE | 2020-01-26 14:05 | PM.IMPN ---
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 Neurology consulted and appreciate input. Remains on Plavix, ASA and statin. Continue PT/OT. Has been approved for TR. Will discharge today. (2) Generalized weakness: Code(s): R53.1 - Weakness Status: Acute Assessment and Plan: Continue PT/OT as noted above. MRI lumbar spine with acute L4 burst fracture and lumbar spondylosis. Cervical spine MRI with C4-5 moderate central canal spondylosis with small region increased T2 cord signal. Patient will follow-up with her neurosurgeon after discharge from [facility]. (3) Diabetes type 2, controlled: Qualifiers: Diabetes mellitus penitentiary insulin use: with keno terminal operator use Diabetes mellitus complication status: with hyperglycemia Qualified Code(s): E11.65 - Type 2 diabetes mellitus with hyperglycemia; Z79.4 - alf (current) use of insulin Code(s): E11.9 - Type 2 diabetes mellitus without complications Status: Acute Assessment and Plan: Hemoglobin A1c 9.4. Glucose reviewed on 01/26/2020 and remains with some elevation. Continue current 70/30. Will also continue sliding scale insulin. Will need to follow on TRC. (4) Falls frequently: Code(s): R29.6 - Repeated falls Status: Acute Assessment and Plan: Suspect related to old CVA and related to above. Continue PT/OT. (5) Low back pain: Qualifiers: Chronicity: unspecified Back pain laterality: unspecified Sciatica presence: unspecified whether sciatica present Qualified Code(s): M54.5 - Low back pain Code(s): M54.5 - Low back pain Status: Acute Assessment and Plan: MRI lumbar spine as noted above. Continue PT/OT. (6) HTN (hypertension): Qualifiers: Hypertension type: essential hypertension Qualified Code(s): I10 - Essential (primary) hypertension Code(s): I10 - Essential (primary) hypertension Status: Acute Assessment and Plan: Blood pressure reviewed on 01/26/2020 and presently stable. Continue amlodipine. Will need to follow on TRC. (7) A-fib: Qualifiers: Atrial fibrillation type: unspecified Qualified Code(s): I48.91 - Unspecified atrial fibrillation Code(s): I48.91 - Unspecified atrial fibrillation Status: Acute Assessment and Plan: History of transient atrial fibrillation. Presently stable. (8) Cirrhosis of liver: Qualifiers: Hepatic cirrhosis type: unspecified hepatic cirrhosis Ascites presence: unspecified Qualified Code(s): K74.60 - Unspecified cirrhosis of liver Code(s): K74.60 - Unspecified cirrhosis of liver Status: Acute Assessment and Plan: Known history. No acute issue. (9) History of CVA (cerebrovascular accident): Code(s): Z86.73 - Personal history of transient ischemic attack (TIA), and cerebral infarction without residual deficits Status: Acute Assessment and Plan: Known previous history. MRI brain as noted above. Continue PT/OT. (10) DVT prophylaxis: Code(s): Z29.9 - Encounter for prophylactic measures, unspecified Status: Acute Assessment and Plan: SCDs. Time Spent With Patient Time with patient: 15 - 25 minutes Subjective Date/time seen: 01/26/20 14:05 Interval history: Date of Service: 01/26/2020. Admitted with acute CVA. Does still have left hand and left lower extremity weakness. No chest pain. No shortness of breath. No abdominal pain. Review of Systems Review of Systems: Narrative: Doing okay. Constitutional: Constitutional: Denies chills and Denies fever(s) Eyes: Eyes: Denies blurry vision ENT: Denies dysphagia Cardiovascular: C
[2020-01-26 14:08] VITALS: BP 135/59; PULSE 61; RESP 18; TEMP 36.6; O2SAT 98
--- NOTE | 2020-01-26 20:43 | PM.DS ---
DS: Diagnosis Admitting Diagnosis Admitting Diagnosis: Cerebral infarction, unspecified Discharge Diagnosis (1) Acute CVA (cerebrovascular accident): Code(s): I63.9 - Cerebral infarction, unspecified Status: Acute (2) Generalized weakness: Code(s): R53.1 - Weakness Status: Acute (3) Diabetes type 2, controlled: Qualifiers: Diabetes mellitus shelter insulin use: with long goods drier use Diabetes mellitus complication status: with hyperglycemia Qualified Code(s): E11.65 - Type 2 diabetes mellitus with hyperglycemia; Z79.4 - computer terminal operator (current) use of insulin Code(s): E11.9 - Type 2 diabetes mellitus without complications Status: Acute (4) Falls frequently: Code(s): R29.6 - Repeated falls Status: Acute (5) Low back pain: Qualifiers: Back pain laterality: unspecified Chronicity: unspecified Sciatica presence: unspecified whether sciatica present Qualified Code(s): M54.5 - Low back pain Code(s): M54.5 - Low back pain Status: Acute (6) HTN (hypertension): Qualifiers: Hypertension type: essential hypertension Qualified Code(s): I10 - Essential (primary) hypertension Code(s): I10 - Essential (primary) hypertension Status: Acute (7) A-fib: Qualifiers: Atrial fibrillation type: unspecified Qualified Code(s): I48.91 - Unspecified atrial fibrillation Code(s): I48.91 - Unspecified atrial fibrillation Status: Acute (8) Cirrhosis of liver: Qualifiers: Hepatic cirrhosis type: unspecified hepatic cirrhosis Ascites presence: unspecified Qualified Code(s): K74.60 - Unspecified cirrhosis of liver Code(s): K74.60 - Unspecified cirrhosis of liver Status: Acute (9) History of CVA (cerebrovascular accident): Code(s): Z86.73 - Personal history of transient ischemic attack (TIA), and cerebral infarction without residual deficits Status: Acute DS: Summary Hospital Course Reason for hospitalization: Generalized weakness, low back pain. Hospital Course: Date of Service of Discharge: January 26, 2020. History of Present Illness: Patient is a 69-year-old with known history of previous CVA present emergency room with history of new left-sided weakness. Patient with 2 previous strokes in 2012 and 2016. Patient legally blind in the left eye. She does have some left-sided weakness residually but reports more problems with the left hand and left leg. She additionally has history of brain aneurysm that have been clean. She was hospitalized at [facility] in November 2019 when she fell on the concrete with head injury. She does report recent evaluation by pain management for injection in the hip for bursitis as well as in the low back. Patient with some chronic lower extremity weakness and pain with plan for MRI of the lumbar spine. The past 2 weeks, she has noticed increasing weakness as well as trouble standing. On the morning presentation patient was unable to get out of bed from a seated position. She had to be helped to the toilet. She was unable to get off the toilet after voiding without help. Patient also reported dizziness. No chest pain or shortness of breath. In the emergency room, no new acute findings were present. Given her increased symptoms, however, she was admitted for further evaluation and treatment. Course in Hospital: Patient was admitted to medical floor with telemetry. She was able to discontinue telemetry during her stay but remained on the medical floor throughout her stay. With patient's coils being MRI compatible, she did have MRI brain which did show an acute pontine infarction in addition to previous old infarctions. She was also able to undergo MRI of the cervical and lumbar spines revealing C4-5 moderate central canal spondylosis and L4 burst fracture with lumbar spondylosis respectively. She was evaluated by Neurology during her stay. Patient with not
== END 2020-01-26 15:15 | DRG 65 ==
LOC: ANHED 16:52 → ANH3MEDSUR 17:11
PROVIDERS: Internal Medicine; Admitting Provider Internal Medicine; Emergency Provider Emergency Medicine; PCP Emergency Medicine; Visit Provider Hospitalist
DX: I63.50 Cerebral infarction due to unspecified occlusion or stenosis of unspecified cerebral artery (principal); S32.041A Stable burst fracture of fourth lumbar vertebra, initial encounter for closed fracture; G81.94 Hemiplegia, unspecified affecting left nondominant side; H54.8 Legal blindness, as defined in USA; I25.10 Atherosclerotic heart disease of native coronary artery without angina pectoris; F41.8 Other specified anxiety disorders; K21.9 Gastro-esophageal reflux disease without esophagitis; E78.5 Hyperlipidemia, unspecified; E03.9 Hypothyroidism, unspecified; M79.7 Fibromyalgia; I10 Essential (primary) hypertension; K58.9 Irritable bowel syndrome, unspecified; R41.3 Other amnesia; E11.42 Type 2 diabetes mellitus with diabetic polyneuropathy; G47.30 Sleep apnea, unspecified; Z87.891 Personal history of nicotine dependence; M54.5 Low back pain; K74.60 Unspecified cirrhosis of liver; M48.02 Spinal stenosis, cervical region; Z79.01 Long term (current) use of anticoagulants; M48.061 Spinal stenosis, lumbar region without neurogenic claudication; R29.6 Repeated falls; W19.XXXA Unspecified fall, initial encounter; Z91.81 History of falling; S76.019A Strain of muscle, fascia and tendon of unspecified hip, initial encounter
CPT/HCPCS: 36415; 51701; 70553; 71046; 72141; 72148; 80048; 80053; 81001; 82140; 82550; 82607; 82746; 83036; 83735; 84443; 85025; 86592; 87804; 93005; 93306; 93880; 96374; 97110; 97116; 97161; 97165; 97530; 97535; 99285; A9270; A9577; G0378; J1100; J1815; J2930

== ENCOUNTER 2020-01-26 15:17 | IRF | payer MEDICARE, SELFPAY ==
--- NOTE | 2020-01-26 15:39 | ADMGEN ---
This patient, Tamiko Leija, was admitted to [facility] Room 226-01. Patient/family oriented to hospital policies and general routines including ID bracelet, bed and alarms, visiting hours, pain management, procedures, bathroom and other care routines, personal items, smoking policy, room service/diet, and visiting hours. Valuables list has been completed. Information on how to activate the Rapid Response Team has been discussed. Patient/Family are encouraged to report perceived risks to care and to ask questions if they do not understand what they are told or what they should do.
[2020-01-26 15:51] VITALS: BP 141/89; PULSE 66; RESP 17; TEMP 36.1; O2SAT 95; BMI 36.1
--- NOTE | 2020-01-26 16:15 | ADMGEN ---
This patient, Tamiko Leija, was admitted to [facility] Room 226-01. Patient/family oriented to hospital policies and general routines including ID bracelet, bed and alarms, visiting hours, pain management, procedures, bathroom and other care routines, personal items, smoking policy, room service/diet, and visiting hours. Valuables list has been completed. Information on how to activate the Rapid Response Team has been discussed. Patient/Family are encouraged to report perceived risks to care and to ask questions if they do not understand what they are told or what they should do.
[2020-01-26 16:44] VITALS: PULSE 66; RESP 17; O2SAT 95
[2020-01-26 17:19] LABS: Glucose Point of Care 288 (65-105)
[2020-01-26] MEDS: INSULIN ASPART (*BKC) 100 UNITS/ML SUB-Q (18:12)
[2020-01-26 22:00] VITALS: BP 136/47; PULSE 54; RESP 19; TEMP 36.6; O2SAT 96
[2020-01-26 22:36] LABS: Glucose Point of Care 236 (65-105)
[2020-01-27 04:47] LABS: Basophils Percent Auto 0.1 % (0.2-1.2); Hematocrit 44.3 % (37.0-47.0); Hemoglobin 14.1 g/dL (12.0-15.0); Immature Granulocyte Absolute 0.08 K/mm3 (0.00-0.031); Immature Granulocyte Percent A 0.8 % (0-0.5); Lymphocytes Absolute Auto 1.54 K/mm3 (0.9-3.2); Lymphocytes Percent Auto 16.3 % (18.3-44.2); Mean Corpuscular HGB Conc 31.8 g/dl (32-36); Mean Corpuscular Hemoglobin 26.3 pg (26-34); Mean Corpuscular Volume 82.6 fl (80-100); Mean Platelet Volume 10.7 fl (7.4-10.4); Monocytes Absolute Auto 0.7 K/mm3 (0.1-0.6); Monocytes Percent Auto 7.5 % (2.6-8.5); Neutrophils Absolute Auto 7.1 K/mm3 (1.3-6.7); Neutrophils Percent Auto 75.3 % (45.5-73.1); Platelet Count Result 249 k/mm3 (150-375); Red Blood Count 5.36 M/mm3 (4.2-5.4); Red Cell Distribution Width 14.9 % (11.5-14.5); White Blood Count 9.4 K/mm3 (4.5-10.0)
[2020-01-27 04:51] LABS: Hemoglobin A1C 9.1 % (<5.7)
[2020-01-27 06:00] VITALS: BP 149/74; PULSE 56; RESP 18; TEMP 36.4; O2SAT 97
[2020-01-27] MEDS: LEVOTHYROXINE SODIUM 100 MCG, LEVOTHYROXINE SODIUM 75 MCG 175 MCG PO (06:15)
[2020-01-27 06:17] LABS: Blood Urea Nitrogen 32 mg/dL (7-17); Calcium 9.1 mg/dL (8.4-10.2); Carbon Dioxide 32 mmol/L (22-30); Chloride 99 mmol/L (98-107); Cholesterol 143 mg/dL (0-200); Estimated CRCL calculation 57 ml/min; Estimated Glomerular Filt Rate > 60; Glucose 94 mg/dL (65-105); HDL Direct 47 mg/dL; Potassium 3.9 mmol/L (3.4-5.0); Sodium 133 mmol/L (137-145); Triglycerides 76 mg/dL (<150)
[2020-01-27 06:28] LABS: LDL Cholesterol Direct 78 mg/dL
[2020-01-27 07:16] LABS: Glucose Point of Care 77 (65-105)
[2020-01-27 08:00] VITALS: PULSE 68; RESP 18; O2SAT 99
[2020-01-27] MEDS: ASPIRIN 81 MG CHEWABLE TABLET PO (09:18)
[2020-01-27] MEDS: ESCITALOPRAM OXALATE 10 MG TABLET 20 MG PO (09:19)
[2020-01-27] MEDS: ROSUVASTATIN 10 MG TABLET 20 MG PO (09:19)
[2020-01-27] MEDS: AMLODIPINE BESYLATE 5 MG TABLET 10 MG PO (09:20)
[2020-01-27] MEDS: CLOPIDOGREL BISULFATE 75 MG TABLET PO (09:20)
[2020-01-27] MEDS: PANTOPRAZOLE 40 MG TABLET PO (09:21)
[2020-01-27] MEDS: FENOFIBRATE NANOCRYSTALLIZED 145 MG TABLET PO (09:21)
[2020-01-27] MEDS: BISACODYL 5 MG TABLET EC PO ×2 (10:16→20:37)
[2020-01-27 11:54] LABS: Glucose Point of Care 120 (65-105)
[2020-01-27 12:21] VITALS: BMI 36.1
--- NOTE | 2020-01-27 13:25 | WPDREHABHP ---
H&P: HPI History of Present Illness Chief complaint: CVA Narrative: Tamiko Leija is a 69 year old female HISTORY OF PRESENT ILLNESS: The patient's primary rehab impairment category is stroke The etiologic diagnosis is acute right pontine infarction I saw this patient [id number] on January 27, 2020 at 10:00 a.m. in the morning The patient is a 69-year-old white woman with a past medical history of strokes, hypertension, atrial fibrillation and type 2 diabetes mellitus who presented to [facility] on January 21, 2020 for new left-sided weakness. The patient has a history of prior strokes, 1 in 2012 and May 18, 2016 with subtle mild left-sided residual weakness. She is also legally blind in her left eye related to diabetic retinopathy I presume. The patient reported that she was at [facility] in November of 2019 for a follow-up angiogram for a brain aneurysm that had been quite twice, when she fell on the concrete striking her head. Follow-up scans showed no changes. The patient is on Plavix chronically and was taking aspirin daily but it was discontinued in November because of the fall. She wears a back brace. She was taking aspirin daily but again that was discontinued as mentioned above the patient has also been followed by pain management physician and is receiving injections in her hips and the low back. Brain MRI revealed a punctate acute right pontine infarction and a large old right posterior cerebral artery CVA, basal ganglia lacunar infarctions. Carotid Doppler showed less than 50% stenosis in the right in the left little carotid arteries previous chest x-ray was negative lumbar MRI showed an acute L4 burst fracture with mild to moderate loss of height and lumbar spinal spondylosis. Cervical MRI shows C4-C5 moderate central canal stenosis with small region increased T2 cord signal which was thought to be edema. She was on stride for edema and has a blood sugars were elevated with the highest level at the over 500 and then 371 Neurology was consulted and she was found to have a pontine stroke on the right side on top of the old strokes which has increased her weakness in the left side. She was started on aspirin and Crestor. Patient is new physical limitations left-sided hemiparesis, decreased fine motor control, visual impairment, trunk instability gait instability and decreased balance and ADLs. Trouble performing the ADLs and functional ability patient continues to complain of moderate back pain from her fall in the bathroom just prior to her emergency room visit. The physician feels she has L4 burst fracture from the fall and she was started on Ultram for pain. Medical complications include hyponatremia elevated BUN hyper less see Natalie hypertension hypotension and uncontrolled pain. She is awake alert oriented x3 and quite eager to be on the rehab as she has benefited in the past the patient will be discharged on aspirin and Plavix for DVT prophylaxis and secondary stroke prevention Therapy was initiated at the acute care facility and the patient transferred to us from [facility] on for September 06, 2020 FALLS OR SURGERIES: The patient has had major surgeries in the 100 days prior to admission. They had falls in the past year. They had falls with injury in the past year. PAST MEDICAL HISTORY: type 2 diabetes mellitus with peripheral neuropathy, stroke in 2012 and 2015, low back pain chronic, frequent falls, hip strain colitis, cirrhosis of the liver recently diagnosed to be followed or seen at the material assembler, hypertension, hyperlipidemia, hypothyroidism, irritable bowel syndrome, history of atrial fibrillation, diarrhea, history of brain aneurysm and coiling x2 with recent angiogram per patient stable, arthritis, asthma, bronchitis, coronary artery disease, carpal tunnel syndrome, depression, fibromyalgia, GERD, pneumonia, sleep apnea, UTI and ventral hernia. PAST SURGICAL HISTORY: Carpal tunnel surgery, hys
[2020-01-27 14:00] VITALS: BP 141/65; PULSE 68; RESP 17; TEMP 36.4; O2SAT 99
--- NOTE | 2020-01-27 14:22 | PCNSR ---
On 01/27/20, the student, Beatriz Duque, provided care and completed [facility] documentation on this patient. I have reviewed the student's documentation and agree with the findings.
[2020-01-27 16:59] LABS: Glucose Point of Care 90 (65-105)
[2020-01-27 20:00] VITALS: PULSE 67; RESP 20; O2SAT 99
[2020-01-27] MEDS: GLUCOSE ORAL GEL 15 GM OF GLUCSE IN 37.5 GM TUBE PO (21:50)
[2020-01-27 22:00] VITALS: BP 121/55; PULSE 67; RESP 20; TEMP 36.4; O2SAT 99
[2020-01-27] MEDS: GLUCAGON FOR INJ 1 MG VIAL IM (22:10)
[2020-01-27 22:20] LABS: Glucose Point of Care 93 (65-105)
--- NOTE | 2020-01-27 22:20 | PC.NURSE ---
glucose gel given at 2150. unable to change the time on the MAR. was NOT given at 2200 but given at 2150.
[2020-01-27 22:21] LABS: Glucose Point of Care 33 (65-105)
[2020-01-27 22:21] LABS: Glucose Point of Care 53 (65-105)
[2020-01-27 22:26] LABS: Glucose Point of Care 103 (65-105)
[2020-01-27 23:05] LABS: Glucose Point of Care 158 (65-105)
[2020-01-28] MEDS: GLUCOSE ORAL GEL 15 GM OF GLUCSE IN 37.5 GM TUBE PO ×2 (01:45→01:50)
[2020-01-28 01:51] LABS: Glucose Point of Care 40 (65-105)
[2020-01-28] MEDS: DEXTROSE 50% 25 GM/50 ML SYRINGE IV PUSH (02:10)
[2020-01-28 02:16] LABS: Glucose Point of Care 73 (65-105)
[2020-01-28 02:17] LABS: Glucose Point of Care 40 (65-105)
--- NOTE | 2020-01-28 02:30 | PC.NURSE ---
2144 patient states she doesnt feel well. feels like blood sugar is dropping. checked sugar and was 33, gave orange juice, pudding, glucose gel from [employer]. waited 15 min and blood sugar susanne some and patient still complaining and gave glucagen IM. patient requested a pepsi and drank that. waited and checked accucheck and was in the 150s.
--- NOTE | 2020-01-28 02:32 | PC.NURSE ---
1300 patient sleeping, skin warm and dry. call light within reach.
--- NOTE | 2020-01-28 02:33 | PC.NURSE ---
1350 patient complained of feeling like blood sugar is dropping again. accucheck taken and it was 40. patient requested pepsi. glucose gel given. patient requested pudding. and was fed pudding by nursing. called nursing supervisor cab to see if she can put an saline lock in patient. supervisor cab came and put a #22 in patient left hand. Dextrose 50 pushed. patient requested blankets feeling cold. call light within reach.
[2020-01-28 02:43] LABS: Glucose Point of Care 212 (65-105)
[2020-01-28 03:12] LABS: Glucose Point of Care 229 (65-105)
[2020-01-28 04:10] LABS: Glucose Point of Care 206 (65-105)
--- NOTE | 2020-01-28 05:19 | PC.NURSE ---
Patient walked to the bathroom with the rollator, states she feels very tired tonight. voided then walked back to bed with rollator. call light within reach.
--- NOTE | 2020-01-28 05:46 | PC.NURSE ---
Patient has walked to the bathroom this a.m. with rollator. walked back to bed. call light within reach.
[2020-01-28 06:00] VITALS: BP 147/69; PULSE 65; RESP 20; TEMP 36.1; O2SAT 100
[2020-01-28] MEDS: LEVOTHYROXINE SODIUM 100 MCG, LEVOTHYROXINE SODIUM 75 MCG 175 MCG PO (06:19)
[2020-01-28 06:42] LABS: Glucose Point of Care 105 (65-105)
--- NOTE | 2020-01-28 08:23 | PCPTNOTE ---
Tamiko Boatengman was evaluated for a []rollator on 01/28/2020 by this physical therapist. The []rollator will resolve patient's mobility limitations and will be used for ADL's within the home. The patient can safely use the [rollator]. ?The [] rollator will resolve the patient?s mobility deficits, including decrease strength, impaired standing balance and limited endurance
[2020-01-28 09:50] VITALS: BP 140/93; PULSE 71
[2020-01-28] MEDS: FENOFIBRATE NANOCRYSTALLIZED 145 MG TABLET PO (09:54)
[2020-01-28] MEDS: ESCITALOPRAM OXALATE 10 MG TABLET 20 MG PO (09:54)
[2020-01-28] MEDS: ASPIRIN 81 MG CHEWABLE TABLET PO (09:55)
[2020-01-28] MEDS: PANTOPRAZOLE 40 MG TABLET PO (09:55)
[2020-01-28] MEDS: ROSUVASTATIN 10 MG TABLET 20 MG PO (09:55)
[2020-01-28] MEDS: AMLODIPINE BESYLATE 5 MG TABLET 10 MG PO (09:56)
[2020-01-28] MEDS: CLOPIDOGREL BISULFATE 75 MG TABLET PO (09:56)
--- NOTE | 2020-01-28 10:00 | WPDNEURORHBP ---
Subjective Date/time seen: January 28, 2020 at 10:00 a.m. Interval history: this 69 she year old diabetic woman is here after having had pontine stroke which has left her increased weakness of left side she is legally blind in the left eye and also have significant evidence of peripheral neuropathy and a poorly controlled diabetes mellitus with the sugars the time different down below 40 for which I have requested medical consult and I will review their notes once this is done she denies any chest pain shortness of breath nausea vomiting double vision a dysphagia abdominal pain fevers chills or sore throat Review of Systems Review of Systems: All systems reviewed & are unremarkable except as noted in HPI and below Functional Status Ambulation Ability Ability to Ambulate 10 Feet: Contact Guard Ability to Ambulate 50 Feet With 2 Turns: Contact Guard Ability to Ambulate 150 Feet: Minimum Assistance X 1 Ambulation Assistive Devices: Walker, Rollator Transfers Ability Ability to Transfer In/Out of Chair: Minimum Assistance X 1 Exam Const: General: comfortable and no acute distress HENMT: General nose exam: Normal nares present Mouth: Yes moist mucous membranes Eyes: Other: decreased visual acuity significantly in the left eye and less so in the right eye remains stable Neck: Neck: supple and no JVD Resp: Effort & Inspection: normal respiratory effort Auscultation: clear to auscultation bilaterally Cardio: Rate: regular rate Rhythm: regular rhythm GI: GI Palp: Yes Soft to palpation Auscultation: normal bowel sounds Skin: General skin exam: normal color and no rashes or lesions noted Neuro: Other: patient is awake and alert will oriented in time place and person has normal speech and language function moderately severe left-sided hemiparesis however is definitely better decreased visual acuity bilaterally at evidence of significant peripheral neuropathy affecting both upper lower extremities and signs of the spinal cord dysfunction which positive Babinski imbalance and generalized weakness superimposed on the left-sided hemiparesis Extrem: General: normal to inspection Psych: Mental Status: mental status grossly normal Objective Data Vital Signs Vital Signs: Vital Signs - 24 hr 01/28/20 09:50 01/28/20 14:00 01/28/20 21:10 Temperature 36.2 C L Pulse Rate 71 76 74 Respiratory Rate 18 Blood Pressure 140/93 H 134/42 L Pulse Oximetry 100 96 01/28/20 22:00 01/29/20 06:00 Temperature 36.9 C 36.7 C Pulse Rate 70 76 Respiratory Rate 20 20 Blood Pressure 140/62 136/56 L Pulse Oximetry 98 99 Intake/Output Intake/Output: Intake & Output 01/26/20 01/27/20 01/28/20 01/29/20 23:59 23:59 23:59 23:59 Intake Total 480 1200 1080 Balance 480 1200 1080 Meds/Results Medications: Active Medications Generic Name Dose Route Start Last Admin Trade Name Freq PRN Reason Stop Dose Admin Alprazolam 0.5 mg 01/26/20 15:49 Xanax PO BID PRN Anxiety Amlodipine Besylate 10 mg 01/27/20 09:00 01/28/20 09:56 Norvasc PO 10 mg DAILY DICK Administration Aspirin 81 mg 01/27/20 08:00 01/28/20 09:55 Aspirin Chewable PO 81 mg DAILY@0800 [facility] Administration Bisacodyl 5 mg 01/27/20 21:00 01/28/20 20:50 Dulcolax Tab PO 5 mg HS DICK Administration Clopidogrel Bisulfate 75 mg 01/27/20 09:00 01/28/20 09:56 Plavix PO 75 mg QAM [facility] Administration Dextrose 12.5 gm 01/26/20 15:59 01/28/20 02:10 Dextrose 50% Syringe IV PUSH 12.5 gm PRN PRN Administration Hypoglycemia Protocol Docusate Sodium 100 mg 01/27/20 09:39 Colace Capsule PO Q12H PRN Constipation Ergocalciferol 50,000 unit 02/01/20 09:00 Drisdol PO WEEKLY [facility] Escitalopram Oxalate 20 mg 01/27/20 09:00 01/28/20 09:54 Lexapro PO 20 mg QAM [facility] Administration Fenofibrate 145 mg 01/27/20 09:00 01/28/20 09:54 Tricor PO 145 mg QAM [facility] Administra
[2020-01-28 11:49] LABS: Glucose Point of Care 135 (65-105)
[2020-01-28 14:00] VITALS: BP 134/42; PULSE 76; RESP 18; TEMP 36.2; O2SAT 100
--- NOTE | 2020-01-28 14:15 | PM.IMCN ---
Assessment and Plan Assessment and plan (1) Diabetes type 2, controlled: Qualifiers: Diabetes mellitus senior living insulin use: with buttermaker helper use Diabetes mellitus complication status: with hyperglycemia Qualified Code(s): E11.65 - Type 2 diabetes mellitus with hyperglycemia; Z79.4 - terminal superintendent (current) use of insulin Code(s): E11.9 - Type 2 diabetes mellitus without complications Status: Acute Assessment and Plan: Continue with Accu-Cheks AC and HS continue with moderate sliding scale insulin. We are holding her 70 /30 for now she keeps dropping. Her A1c was 9.1. Blood sugars dropped down to the 40s in the night. This afternoon they were in the 200s. I discussed this with the patient for now we will do sliding insulin and gradually add 70 30 but with lower doses. Patient has peripheral neuropathy to her feet and stated that she was will start on Lyrica. We discuss this and I placed her on a very low dose of lyrica at this time. (2) History of CVA (cerebrovascular accident): Code(s): Z86.73 - Personal history of transient ischemic attack (TIA), and cerebral infarction without residual deficits Status: Acute Assessment and Plan: Patient is and tear seen she is seen by Neurology. She appears to be working well with physical therapy. This is her 3rd stroke and she has some mild weakness of the left upper extremity. The patient is on Plavix and aspirin. (3) HTN (hypertension): Qualifiers: Hypertension type: essential hypertension Qualified Code(s): I10 - Essential (primary) hypertension Code(s): I10 - Essential (primary) hypertension Status: Acute Assessment and Plan: Continue with Norvasc (4) HLD (hyperlipidemia): Code(s): E78.5 - Hyperlipidemia, unspecified Status: Acute Assessment and Plan: Continue with Crestor and fenofibrate. (5) Hypothyroidism: Code(s): E03.9 - Hypothyroidism, unspecified Status: Acute Assessment and Plan: Continue with levothyroxine (6) IBS (irritable bowel syndrome): Code(s): K58.9 - Irritable bowel syndrome without diarrhea Status: Acute Assessment and Plan: The patient stated that she is going to follow-up with specialist in [place]. HPI Data of Consult Consult date: 01/28/20 Requesting Physician: Nestor Kim MD Primary Care Provider: Prakash Armstrong MD Consult Narrative Narrative: Tamiko Leija is a 69 year old female who is currently in [facility] post stroke. The patient had been on Solu-Medrol and her blood sugars were high when she was in patient and now that she is off the steroids her blood sugars were dropping. She has not had any routine insulin today and her blood sugars been in the 100s. We have been consulted for low blood sugars. The hospitalist group saw the patient while she was inpatient. She has no other complaints except for her peripheral neuropathy to her feet. She stated that she was. Start on some Lyrica but has not as of yet. Review of Systems Review of Systems: Narrative: The patient still has some mild weakness in the left upper left lower extremity. The patient stated she has had 3 strokes in the past. She still continues to feel dizzy. This is 1 of the symptoms that occurred after her last stroke. She complains of having neuropathy to her lower extremities. All systems reviewed & are unremarkable except as noted in HPI and below Constitutional: Constitutional: Reports as per HPI and Reports no additional constitutional complaints Eyes: Eyes: Reports as per HPI and Reports no additional eye complaints ENT: Reports system reviewed and no additional complaints, except as documented and Reports Normal hearing present Cardiovascular: Cardiovascular: Reports no additional cardiovascular complaints Respiratory: Respiratory: Reports no additional respiratory complaints and Reports no additional respiratory complaints Gastroin
[2020-01-28] MEDS: TRAMADOL HCL 50 MG TABLET PO (14:44)
--- NOTE | 2020-01-28 15:11 | RPD ---
INDIVIDUALIZED PLAN OF CARE FOR Tamiko Leija Brief Synthesis of Pre-Admission Screen, Post-Admission Evaluation and Therapy Evaluations: The patient presents to rehab with acute right pontine infarction. Comorbidities include type 2 diabetes mellitus with diabetic peripheral neuropathy, acute L4 burst fracture, C4-5 moderate central canal stenosis, T2 cord edema, hypertension, lumbar spondylosis, hyperlipidemia, hypothyroidism, irritable bowel syndrome, atrial fibrillation, arthritis, asthma, coronary artery disease, depression, fibromyalgia, GERD, sleep apnea, history of CVA, low back pain, frequent falls, cirrhosis of liver. The patient requires physician services for neurology services, medical oversight, and coordination of care. Emotional needs will be monitored as depression is a common sequelae of stroke. The patient needs physician monitoring and treatment of hyponatremia, elevated BUN, hyperglycemia, hypertension, hypotension, uncontrolled pain, monitoring for adverse reactions to new medications, and monitoring of infection. The patient requires nursing services for frequent neuro checks, anticoagulation therapy, medication management and education, pressure relief and skin care management, monitoring of labs, bowel and bladder training, diabetes management and education, and fall/safety precautions. Deficits include:ADLs, Balance, Cognition, Endurance, Mobility, Pain Management, ROM, Safety, Strength,Transfers Lumber Grader/Case Management for: Discharge Planning and Patient/Family Counseling Physical Therapy: 5 days per week for 90 minutes. Treatments may include: Therapeutic Exercise, Gait Training, Neuromuscular Re-education, Transfer Training, Community Reintegration, Bed Mobility, Patient/Family Education, Wheelchair Mobility Group Therapy/Concurrent Therapy Rationales: -Improve attention span during functional activities in a distracted environment. -Enhance problem solving and/or adequate judgment skills during functional activities in a distracted environment. -Promote increased safety awareness in a distracted environment to reduce fall risk with functional tasks, transfers, and ambulation to allow a more safe, self-sufficient return to the home environment. -Improve dynamic balance skills to promote safety and independence with functional activities in a distracted environment for maximum gain. Occupational Therapy: 5 days per week for 90 minutes. Treatments may include: Therapeutic Exercise, Therapeutic Activity, Cognitive Training, Self-Care Transfer Training, Community Reintegration, Home Management, Patient/Family Education, Wheelchair Mobility Training, Energy Conservation Training Group Therapy/Concurrent Therapy Rationales: -Allow therapist to observe and teach generalization and carry-over of skills learned in individual therapy. -Enhance problem solving and sequencing skills during therapeutic activities in a distracted environment. -Promote increased safety awareness in a realistic setting to reduce fall risk with functional tasks due to visual and verbal distractions. -Increase functional level with ADLs, ADL transfers and use of adaptive equipment through therapeutic activities with others while promoting safety to allow a more safe, self-sufficient return home. Medical Prognosis: Good Anticipated Length of Stay: 12 days Rehab Goals: Eating Goal: 06-Independent Oral Hygiene Goal: 06-Independent Toileting Hygiene Goal: 04-Supervision or Touching Assistance Shower/Bathe Self Goal: 04-Supervision or Touching Assistance Upper Body Dressing Goal: 05-Setup or Clean Up Assistance Lower Body Dressing Goal: 04-Supervision or Touching Assistance Putting On/Taking Off Footwear Goal: 05-Setup or Clean Up Assistance Rolling Left and Right Goal: 06-Independent Sit to Lying Goal: 06-Independent Lying to Sitting on Side of Bed Goal: 06-Independent Sit to Stand Goal: 06-Independent Chair/Ikh-ag-Qoenr Transfer Goal: 06-Independent To
[2020-01-28 17:01] LABS: Glucose Point of Care 195 (65-105)
[2020-01-28] MEDS: BISACODYL 5 MG TABLET EC PO (20:50)
[2020-01-28] MEDS: PREGABALIN 25 MG CAPSULE PO (20:53)
[2020-01-28 21:10] VITALS: PULSE 74; O2SAT 96
[2020-01-28 22:00] VITALS: BP 140/62; PULSE 70; RESP 20; TEMP 36.9; O2SAT 98
[2020-01-28 22:17] LABS: Glucose Point of Care 168 (65-105)
[2020-01-29 06:00] VITALS: BP 136/56; PULSE 76; RESP 20; TEMP 36.7; O2SAT 99
[2020-01-29] MEDS: LEVOTHYROXINE SODIUM 100 MCG, LEVOTHYROXINE SODIUM 75 MCG 175 MCG PO (06:06)
[2020-01-29 06:22] LABS: Glucose Point of Care 59 (65-105)
--- NOTE | 2020-01-29 10:10 | WPDNEURORHBP ---
Subjective Date/time seen: 01/29/20 10:10 Interval history: this is a 69-year-old woman who is here because of pontine stroke will left-sided hemiparesis and also cervical myelopathy and spinal cord compression with generalized weakness lower extremities more so than the upper extremities with diabetic neuropathy of moderately severe degree and also low back pain related to acute L4 burst fracture mild to moderate loss of height along with lumbar spondylosis In past 48 hours the patient has been dropping her sugars into 40s in the 50s at 1 time she was symptomatic but today she is feeling much better and hospitalist has seen the patient and the adjustment in her insulin requirement have been made and Lyrica has been added for peripheral neuropathy The patient denies any headache nausea vomiting chest pain shortness of breath or any new neurological symptoms or signs Review of Systems Review of Systems: All systems reviewed & are unremarkable except as noted in HPI and below Functional Status Ambulation Ability Ability to Ambulate 10 Feet: Contact Guard Ability to Ambulate 50 Feet With 2 Turns: Contact Guard Ability to Ambulate 150 Feet: Minimum Assistance X 1 Ambulation Assistive Devices: Walker, Rollator Transfers Ability Ability to Transfer In/Out of Chair: Minimum Assistance X 1 Exam Const: General: comfortable and no acute distress HENMT: General nose exam: Normal nares present Mouth: Yes moist mucous membranes Eyes: General: appearance normal, both eyes and all related structures Other: patient is legally blind in the left eye apart from that the extraocular movements are full without nystagmus and visual acuity remains the same and stable Neck: Neck: supple and no JVD Resp: Effort & Inspection: normal respiratory effort Auscultation: clear to auscultation bilaterally Cardio: Rate: regular rate Rhythm: regular rhythm GI: GI Palp: Yes Soft to palpation Auscultation: normal bowel sounds Skin: General skin exam: normal color and no rashes or lesions noted Neuro: Other: patient is awake alert well oriented to time place and person was moderately severe left-sided hemiparesis along with the evidence of peripheral neuropathy and needing assistance all the activities of daily living Extrem: General: normal to inspection Psych: Mental Status: mental status grossly normal Objective Data Vital Signs Vital Signs: Vital Signs - 24 hr 01/28/20 14:00 01/28/20 21:10 01/28/20 22:00 Temperature 36.2 C L 36.9 C Pulse Rate 76 74 70 Respiratory Rate 18 20 Blood Pressure 134/42 L 140/62 Pulse Oximetry 100 96 98 01/29/20 06:00 Temperature 36.7 C Pulse Rate 76 Respiratory Rate 20 Blood Pressure 136/56 L Pulse Oximetry 99 Intake/Output Intake/Output: Intake & Output 01/26/20 01/27/20 01/28/20 01/29/20 23:59 23:59 23:59 23:59 Intake Total 480 1200 1080 360 Balance 480 1200 1080 360 Meds/Results Medications: Active Medications Generic Name Dose Route Start Last Admin Trade Name Freq PRN Reason Stop Dose Admin Alprazolam 0.5 mg 01/26/20 15:49 Xanax PO BID PRN Anxiety Amlodipine Besylate 10 mg 01/27/20 09:00 01/28/20 09:56 Norvasc PO 10 mg DAILY DICK Administration Aspirin 81 mg 01/27/20 08:00 01/28/20 09:55 Aspirin Chewable PO 81 mg DAILY@0800 [facility] Administration Bisacodyl 5 mg 01/27/20 21:00 01/28/20 20:50 Dulcolax Tab PO 5 mg HS DICK Administration Clopidogrel Bisulfate 75 mg 01/27/20 09:00 01/28/20 09:56 Plavix PO 75 mg QAM DICK Administration Dextrose 12.5 gm 01/26/20 15:59 01/28/20 02:10 Dextrose 50% Syringe IV PUSH 12.5 gm PRN PRN Administration Hypoglycemia Protocol Docusate Sodium 100 mg 01/27/20 09:39 Colace Capsule PO Q12H PRN Constipation Ergocalciferol 50,000 unit 02/01/20 09:00 Drisdol PO WEEKLY [facility] Escitalopram Oxalate 20 mg 01/27/20 09:00 01/28/20 09:54 Lexapro P
[2020-01-29] MEDS: ESCITALOPRAM OXALATE 10 MG TABLET 20 MG PO (10:21)
[2020-01-29] MEDS: ROSUVASTATIN 10 MG TABLET 20 MG PO (10:21)
[2020-01-29] MEDS: CLOPIDOGREL BISULFATE 75 MG TABLET PO (10:21)
[2020-01-29] MEDS: PANTOPRAZOLE 40 MG TABLET PO (10:22)
[2020-01-29] MEDS: ASPIRIN 81 MG CHEWABLE TABLET PO (10:22)
[2020-01-29] MEDS: PREGABALIN 25 MG CAPSULE PO ×2 (10:22→20:11)
[2020-01-29] MEDS: FENOFIBRATE NANOCRYSTALLIZED 145 MG TABLET PO (10:22)
[2020-01-29] MEDS: AMLODIPINE BESYLATE 5 MG TABLET 10 MG PO (10:22)
[2020-01-29 11:45] LABS: Glucose Point of Care 214 (65-105)
[2020-01-29] MEDS: INSULIN ASPART (*BKC) 100 UNITS/ML SUB-Q ×2 (12:36→17:02)
[2020-01-29 14:00] VITALS: BP 141/56; PULSE 74; RESP 16; TEMP 36.4; O2SAT 100
--- NOTE | 2020-01-29 14:39 | PC.NURSE ---
Patient showed nursing an area to R AC that she stated hurts. Updated DrNavin requested wound nurse consult. Tiff contacted to come look at patient. will continue to monitor.
--- NOTE | 2020-01-29 16:41 | PM.IMPN ---
Progress Note: A&P Assessment and Plan (1) Diabetes type 2, controlled: Qualifiers: Diabetes mellitus terminal makeup operator insulin use: with prison use Diabetes mellitus complication status: with hyperglycemia Qualified Code(s): E11.65 - Type 2 diabetes mellitus with hyperglycemia; Z79.4 - terminologist (current) use of insulin Code(s): E11.9 - Type 2 diabetes mellitus without complications Status: Acute Assessment and Plan: Continue with Accu-Cheks AC and HS continue with moderate sliding scale insulin. Hold 70/30 and cut back on lantus dosing. (2) History of CVA (cerebrovascular accident): Code(s): Z86.73 - Personal history of transient ischemic attack (TIA), and cerebral infarction without residual deficits Status: Acute Assessment and Plan: Patient is receiving rehab for stroke presently. The patient is on Plavix and aspirin. (3) HTN (hypertension): Qualifiers: Hypertension type: essential hypertension Qualified Code(s): I10 - Essential (primary) hypertension Code(s): I10 - Essential (primary) hypertension Status: Acute Assessment and Plan: Continue with Norvasc (4) HLD (hyperlipidemia): Code(s): E78.5 - Hyperlipidemia, unspecified Status: Acute Assessment and Plan: Continue with Crestor and fenofibrate. (5) Hypothyroidism: Code(s): E03.9 - Hypothyroidism, unspecified Status: Acute Assessment and Plan: Continue with levothyroxine (6) IBS (irritable bowel syndrome): Code(s): K58.9 - Irritable bowel syndrome without diarrhea Status: Acute Assessment and Plan: The patient sees specialist in [place]. Subjective Date/time seen: 01/29/20 16:41 Interval history: Heladio is a 69 year old female who is currently in [facility] post stroke. The patient had been on Solu-Medrol and her blood sugars were high when she was in patient and now that she is off the steroids her blood sugars were dropping. Pt is not eating much havig hypoglycemic attacks now. Adviced to cut back her insulin. Review of Systems Review of Systems: All systems reviewed & are unremarkable except as noted in HPI and below Exam Const: General: cooperative, healthy appearing, comfortable, no acute distress, well developed, alert, awake and Physically active Nutritional Appearance: average body habitus and well nourished Orientation/consciousness: oriented to person, oriented to place, oriented to time and patient oriented x3 Limitations: no limitations Chest: Chest palpation & inspection: normal inspection of the chest Resp: Effort & Inspection: normal respiratory effort Auscultation: clear to auscultation bilaterally Percussion: percussion normal Cardio: Palpation: normal PMI Rate: regular rate Rhythm: regular rhythm Heart sounds: S1 normal heart sound present and S2 normal heart sound present Peripheral pulses: Peripheral pulses 2+ throughout Neuro: General: oriented to person, oriented to place, oriented to time and patient oriented x3 Cranial nerves: Yes Equal, round and reactive pupils present and Yes Normal hearing present Cognition (Neuro): normal cognition Speech: normal speech Gait exam (Neuro): Normal gait present Motor exam (neuro): 5/5 motor strength present throughout Sensory Exam: normal sensation Extrem: General: normal to inspection Right upper extremity: normal to inspection and shoulder/upper arm Left upper extremity: normal to inspection (Mild weakness the left upper extremity) Right lower extremity: normal to inspection Left lower extremity: normal to inspection (Mild weakness the left lower extremity status post stroke) Psych: Appearance: grossly normal Mental Status: mental status grossly normal Speech and movement: Normal speech and movement present Affect: normal affect Attitude: cooperative Thought process: Normal thought process present Insight: Good insight present (Psych) Judgement: Good
[2020-01-29 17:01] LABS: Glucose Point of Care 310 (65-105)
[2020-01-29] MEDS: SILVERGEL (ELTA) 45 ML 1 APPLIC TOPICAL (17:03)
[2020-01-29] MEDS: BISACODYL 5 MG TABLET EC PO (20:11)
[2020-01-29 21:13] LABS: Glucose Point of Care 389 (65-105)
[2020-01-29 21:16] VITALS: BP 139/54; PULSE 83; RESP 20; TEMP 36.6; O2SAT 99
[2020-01-30 02:33] LABS: Glucose Point of Care 242 (65-105)
[2020-01-30] MEDS: TRAMADOL HCL 50 MG TABLET PO (02:33)
[2020-01-30 05:53] LABS: Glucose Point of Care 203 (65-105)
[2020-01-30 06:00] VITALS: BP 151/61; PULSE 80; RESP 20; TEMP 36.4; O2SAT 97
[2020-01-30] MEDS: LEVOTHYROXINE SODIUM 100 MCG, LEVOTHYROXINE SODIUM 75 MCG 175 MCG PO (06:22)
[2020-01-30 08:00] VITALS: PULSE 80; RESP 20; O2SAT 97
[2020-01-30] MEDS: ESCITALOPRAM OXALATE 10 MG TABLET 20 MG PO (09:25)
[2020-01-30] MEDS: ASPIRIN 81 MG CHEWABLE TABLET PO (09:26)
[2020-01-30] MEDS: CLOPIDOGREL BISULFATE 75 MG TABLET PO (09:26)
[2020-01-30] MEDS: ROSUVASTATIN 10 MG TABLET 20 MG PO (09:26)
[2020-01-30] MEDS: FENOFIBRATE NANOCRYSTALLIZED 145 MG TABLET PO (09:26)
[2020-01-30] MEDS: SILVERGEL (ELTA) 45 ML 1 APPLIC TOPICAL (09:26)
[2020-01-30] MEDS: AMLODIPINE BESYLATE 5 MG TABLET 10 MG PO (09:26)
[2020-01-30] MEDS: PANTOPRAZOLE 40 MG TABLET PO (09:26)
[2020-01-30] MEDS: PREGABALIN 25 MG CAPSULE PO ×2 (09:29→20:19)
[2020-01-30 09:41] LABS: Glucose Point of Care 260 (65-105)
[2020-01-30] MEDS: INSULIN ASPART (*BKC) 100 UNITS/ML SUB-Q ×2 (09:43→17:30)
[2020-01-30 12:02] LABS: Glucose Point of Care 178 (65-105)
--- NOTE | 2020-01-30 12:33 | WPDNEURORHBP ---
Subjective Date/time seen: multiple problems with myelopathy ,neuropathy and DM at this time [id number]/14/20 12:33 Functional Status Ambulation Ability Ability to Ambulate 10 Feet: Contact Guard Ability to Ambulate 50 Feet With 2 Turns: Contact Guard Ability to Ambulate 150 Feet: Minimum Assistance X 1 Ambulation Assistive Devices: Walker, Rollator Transfers Ability Ability to Transfer In/Out of Chair: Minimum Assistance X 1 Exam Const: General: cooperative, comfortable and no acute distress Nutritional Appearance: obese Orientation/consciousness: oriented to person, oriented to place and oriented to time HENMT: Head: normal to inspection Ears: hearing grossly normal bilaterally and external ears normal General nose exam: Normal external nose present Face and sinus: normal facial exam Mouth: Yes Normal oral and palatal mucosa present Eyes: Visual Purcell: normal visual purcell by confrontation (blind in left eye) Periorbital: periorbital findings normal Eyelids: eyelids normal Conjunctivae: conjunctivae normal Sclera: sclerae normal Cornea: corneas normal EOM: EOMs intact bilaterally Neck: Neck: full ROM and no lymphadenopathy Carotids: normal carotid upstroke Resp: Effort & Inspection: normal respiratory effort Auscultation: clear to auscultation bilaterally Cardio: Rate: regular rate Rhythm: regular rhythm GI: Auscultation: normal bowel sounds Skin: General skin exam: no rashes or lesions noted Neuro: General: patient oriented x3 and moves all extremities Cranial nerves: Yes Bilaterally intact EOM present, Yes Nystagmus not present, Yes Normal facial strength present (asymmetrical), Yes Midline tongue present, Yes Ability to bilaterally rotate head present and Yes Ability to bilaterally elevate shoulders present Cognition (Neuro): normal cognition Speech: normal speech Gait exam (Neuro): Normal gait present (hemiparetic gait) Motor exam (neuro): 5/5 motor strength present throughout (left hemiparesis) Deep tendon reflexes (DTR's): Right triceps reflex intensity grade: 0, Left triceps reflex intensity grade: 1+, Rt Biceps (C5, C6): 0, Left biceps reflex intensity grade: 1+, Right brachioradialis reflex intensity grade: 0, Left brachioradialis reflex intensity grade: 1+, Right patellar reflex intensity grade: 0, Left patellar reflex intensity grade: 1+, Right ankle reflex intensity grade: 0 and Left ankle reflex intensity grade: 0 Plantar Reflex Responses: downgoing: right and upgoing (positive Babinski): left Extrem: General: full ROM Psych: Appearance: grossly normal Objective Data Vital Signs Vital Signs: Vital Signs - 24 hr 01/29/20 14:00 01/29/20 21:16 01/30/20 06:00 Temperature 36.4 C L 36.6 C 36.4 C Pulse Rate 74 83 80 Respiratory Rate 16 20 20 Blood Pressure 141/56 H 139/54 L 151/61 H Pulse Oximetry 100 99 97 01/30/20 08:00 Temperature Pulse Rate 80 Respiratory Rate 20 Blood Pressure Pulse Oximetry 97 Intake/Output Intake/Output: Intake & Output 01/27/20 01/28/20 01/29/20 01/30/20 23:59 23:59 23:59 23:59 Intake Total 1200 1080 1080 480 Balance 1200 1080 1080 480 Meds/Results Medications: Active Medications Generic Name Dose Route Start Last Admin Trade Name Freq PRN Reason Stop Dose Admin Acetaminophen 650 mg 01/30/20 06:34 Tylenol Tablet PO Q6H PRN Mild Pain (1-3) or Fever Alprazolam 0.5 mg 01/26/20 15:49 Xanax PO BID PRN Anxiety Amlodipine Besylate 10 mg 01/27/20 09:00 01/30/20 09:26 Norvasc PO 10 mg DAILY DICK Administration Aspirin 81 mg 01/27/20 08:00 01/30/20 09:26 Aspirin Chewable PO 81 mg DAILY@0800 DICK Administration Bisacodyl 5 mg 01/27/20 21:00 01/29/20 20:11 Dulcolax Tab PO 5 mg HS DICK Administration Clopidogrel Bisulfate 75 mg 01/27/20 09:00 01/30/20 09:26 Plavix PO 75 mg QAM DICK Administration Dextrose 12.5 gm 01/26/20 15:59 01/28/20 02:10 Dextrose 50% Syringe IV
--- NOTE | 2020-01-30 12:57 | PM.IMPN ---
Progress Note: A&P Assessment and Plan (1) Diabetes type 2, controlled: Qualifiers: Diabetes mellitus supervisor intermediates insulin use: with supervisor intermediates use Diabetes mellitus complication status: with hyperglycemia Qualified Code(s): E11.65 - Type 2 diabetes mellitus with hyperglycemia; Z79.4 - [facility] (current) use of insulin Code(s): E11.9 - Type 2 diabetes mellitus without complications Status: Acute Assessment and Plan: Continue with Accu-Cheks AC and HS continue with moderate sliding scale insulin. restart pt 70/30 5 units am and pm (2) History of CVA (cerebrovascular accident): Code(s): Z86.73 - Personal history of transient ischemic attack (TIA), and cerebral infarction without residual deficits Status: Acute Assessment and Plan: Patient is receiving rehab for stroke presently. The patient is on Plavix and aspirin. (3) HTN (hypertension): Qualifiers: Hypertension type: essential hypertension Qualified Code(s): I10 - Essential (primary) hypertension Code(s): I10 - Essential (primary) hypertension Status: Acute Assessment and Plan: Continue with Norvasc (4) HLD (hyperlipidemia): Code(s): E78.5 - Hyperlipidemia, unspecified Status: Acute Assessment and Plan: Continue with Crestor and fenofibrate. (5) Hypothyroidism: Code(s): E03.9 - Hypothyroidism, unspecified Status: Acute Assessment and Plan: Continue with levothyroxine (6) IBS (irritable bowel syndrome): Code(s): K58.9 - Irritable bowel syndrome without diarrhea Status: Acute Assessment and Plan: The patient sees specialist in [place]. Subjective Date/time seen: 01/30/20 12:57 Interval history: Heladio is a 69 year old female who is currently in [facility] post stroke. The patient had been on Solu-Medrol and her blood sugars were high when she was in patient and now that she is off the steroids her blood sugars were dropping. Pt is not eating much having hypoglycemic attacks now. Insulin was completely stopped now can restart insulin slowly. As her sugars have been high today and she is needing corrective insulin. Review of Systems Review of Systems: All systems reviewed & are unremarkable except as noted in HPI and below Constitutional: Constitutional: Reports as per HPI and Reports no additional constitutional complaints Eyes: Eyes: Reports as per HPI and Reports no additional eye complaints ENT: Reports system reviewed and no additional complaints, except as documented and Reports Normal hearing present Cardiovascular: Cardiovascular: Reports no additional cardiovascular complaints Respiratory: Respiratory: Reports no additional respiratory complaints and Reports no additional respiratory complaints Gastrointestinal: Gastrointestinal: Reports as per HPI and Reports no additional gastrointestinal complaints Musculoskeletal: Musculoskeletal: Reports no additional musculoskeletal complaints Integumentary/Breasts: Skin/Breast: Reports system reviewed and no additional complaints, except as docu and Reports as per HPI Neurologic: Reports system reviewed and no additional complaints, except as documented, Reports as per HPI and Reports Normal hearing present Psychiatric: Psychiatric: Reports no additional psychiatric complaints and Reports as per HPI Endocrine: Endocrine: Reports no additional endocrine complaints Hematologic/Lymphatic: Hematologic/Lymphatic: Reports no additional hematologic/lymphatic complaints Allergic/Immunologic: Allergic/Immunologic: Reports no additional allergic/immunologic complaints Exam Const: General: cooperative, healthy appearing, comfortable, no acute distress, well developed, alert, awake and Physically active Nutritional Appearance: average body habitus and well nourished Orientation/consciousness: oriented to person, oriented to place, oriented to time and patient oriented x3 Limitations: no l
[2020-01-30 14:00] VITALS: BP 140/61; PULSE 65; RESP 18; TEMP 36; O2SAT 100
[2020-01-30 17:08] LABS: Glucose Point of Care 256 (65-105)
[2020-01-30] MEDS: BISACODYL 5 MG TABLET EC PO (20:19)
[2020-01-30 20:32] LABS: Glucose Point of Care 260 (65-105)
[2020-01-30] MEDS: ACETAMINOPHEN 325 MG TABLET 650 MG PO (21:24)
[2020-01-30 22:00] VITALS: BP 150/55; PULSE 71; RESP 20; TEMP 36.2; O2SAT 100
[2020-01-31 04:42] LABS: Hematocrit 36.9 % (37.0-47.0); Hemoglobin 11.6 g/dL (12.0-15.0); Mean Corpuscular HGB Conc 31.4 g/dl (32-36); Mean Corpuscular Hemoglobin 26.4 pg (26-34); Mean Corpuscular Volume 84.1 fl (80-100); Mean Platelet Volume 11.2 fl (7.4-10.4); Platelet Count Result 149 k/mm3 (150-375); Red Blood Count 4.39 M/mm3 (4.2-5.4); Red Cell Distribution Width 14.8 % (11.5-14.5); White Blood Count 8.1 K/mm3 (4.5-10.0)
[2020-01-31 05:04] LABS: Blood Urea Nitrogen 18 mg/dL (7-17); Calcium 8.3 mg/dL (8.4-10.2); Carbon Dioxide 32 mmol/L (22-30); Chloride 98 mmol/L (98-107); Estimated CRCL calculation 51 ml/min; Estimated Glomerular Filt Rate > 60; Glucose 190 mg/dL (65-105); Potassium 4.2 mmol/L (3.4-5.0); Sodium 130 mmol/L (137-145)
[2020-01-31 05:47] LABS: Glucose Point of Care 169 (65-105)
[2020-01-31 06:00] VITALS: BP 130/76; PULSE 72; RESP 18; TEMP 36.3; O2SAT 96
[2020-01-31] MEDS: LEVOTHYROXINE SODIUM 100 MCG, LEVOTHYROXINE SODIUM 75 MCG 175 MCG PO (06:56)
[2020-01-31 08:00] VITALS: PULSE 72; RESP 18; O2SAT 96
[2020-01-31] MEDS: ESCITALOPRAM OXALATE 10 MG TABLET 20 MG PO (09:13)
[2020-01-31] MEDS: AMLODIPINE BESYLATE 5 MG TABLET 10 MG PO (09:13)
[2020-01-31] MEDS: CLOPIDOGREL BISULFATE 75 MG TABLET PO (09:14)
[2020-01-31] MEDS: ASPIRIN 81 MG CHEWABLE TABLET PO (09:14)
[2020-01-31] MEDS: PANTOPRAZOLE 40 MG TABLET PO (09:14)
[2020-01-31] MEDS: FENOFIBRATE NANOCRYSTALLIZED 145 MG TABLET PO (09:14)
[2020-01-31] MEDS: ROSUVASTATIN 10 MG TABLET 20 MG PO (09:15)
[2020-01-31] MEDS: SILVERGEL (ELTA) 45 ML 1 APPLIC TOPICAL (09:15)
[2020-01-31] MEDS: PREGABALIN 25 MG CAPSULE PO ×2 (09:18→19:58)
[2020-01-31 12:07] LABS: Glucose Point of Care 291 (65-105)
[2020-01-31] MEDS: INSULIN ASPART (*BKC) 100 UNITS/ML SUB-Q ×2 (12:18→17:17)
--- NOTE | 2020-01-31 12:41 | WPDNEURORHBP ---
Subjective Date/time seen: 01/31/20 12:41 Review of Systems Review of Systems: All systems reviewed & are unremarkable except as noted in HPI and below Functional Status Ambulation Ability Ability to Ambulate 10 Feet: Contact Guard Ability to Ambulate 50 Feet With 2 Turns: Contact Guard Ability to Ambulate 150 Feet: Minimum Assistance X 1 Ambulation Assistive Devices: Walker, Rollator Transfers Ability Ability to Transfer In/Out of Chair: Contact Guard Exam Const: General: cooperative, comfortable, no acute distress, alert, awake and Physically active Nutritional Appearance: obese Orientation/consciousness: patient oriented x3 Eyes: General: appearance normal, both eyes and all related structures (blind in left eye) Periorbital: periorbital findings normal Eyelids: eyelids normal Conjunctivae: conjunctivae normal Sclera: sclerae normal Cornea: corneas normal Neck: Neck: full ROM and no lymphadenopathy Resp: Effort & Inspection: normal respiratory effort and able to speak in complete sentences Auscultation: clear to auscultation bilaterally Cardio: Rate: regular rate Rhythm: regular rhythm Skin: General skin exam: no rashes or lesions noted Neuro: General: patient oriented x3, moves all extremities, normal sensation to monofilament (decreased distally) and Unable to assess gait Cranial nerves: Yes Equal, round and reactive pupils present (blind in left eye), Yes Midline tongue present, Yes Ability to bilaterally rotate head present and Yes Ability to bilaterally elevate shoulders present Cognition (Neuro): normal cognition Speech: normal speech Gait exam (Neuro): Unable to assess gait (hemiparetic) Deep tendon reflexes (DTR's): Right triceps reflex intensity grade: 0, Left triceps reflex intensity grade: 1+, Rt Biceps (C5, C6): 0, Left biceps reflex intensity grade: 1+, Right brachioradialis reflex intensity grade: 0, Left brachioradialis reflex intensity grade: 1+, Right patellar reflex intensity grade: 0, Left patellar reflex intensity grade: 1+, Right ankle reflex intensity grade: 0 and Left ankle reflex intensity grade: 1+ Plantar Reflex Responses: downgoing: right and equivocal: left Coordination: [id number] test normal Psych: Mental Status: mental status grossly normal Speech and movement: Normal speech and movement present and Clear speech present Affect: normal affect Attitude: cooperative Thought process: Normal thought process present Thought content: Yes Normal thought content present Insight: Good insight present (Psych) Objective Data Vital Signs Vital Signs: Vital Signs - 24 hr 01/30/20 14:00 01/30/20 22:00 01/31/20 06:00 Temperature 36.0 C L 36.2 C L 36.3 C L Pulse Rate 65 71 72 Respiratory Rate 18 20 18 Blood Pressure 140/61 150/55 H 130/76 Pulse Oximetry 100 100 96 01/31/20 08:00 Temperature Pulse Rate 72 Respiratory Rate 18 Blood Pressure Pulse Oximetry 96 Intake/Output Intake/Output: Intake & Output 01/28/20 01/29/20 01/30/20 01/31/20 23:59 23:59 23:59 23:59 Intake Total 1080 1080 960 Balance 1080 1080 960 Meds/Results Medications: Active Medications Generic Name Dose Route Start Last Admin Trade Name Freq PRN Reason Stop Dose Admin Acetaminophen 650 mg 01/30/20 06:34 01/30/20 21:24 Tylenol Tablet PO 650 mg Q6H PRN Administration Mild Pain (1-3) or Fever Alprazolam 0.5 mg 01/26/20 15:49 Xanax PO BID PRN Anxiety Amlodipine Besylate 10 mg 01/27/20 09:00 01/31/20 09:13 Norvasc PO 10 mg DAILY DICK Administration Aspirin 81 mg 01/27/20 08:00 01/31/20 09:14 Aspirin Chewable PO 81 mg DAILY@0800 DICK Administration Bisacodyl 5 mg 01/27/20 21:00 01/30/20 20:19 Dulcolax Tab PO 5 mg HS DICK Administration Clopidogrel Bisulfate 75 mg 01/27/20 09:00 01/31/20 09:14 Plavix PO 75 mg QAM DICK Administration Dextrose 12.5 gm 01/26/20 15:59 01/28/20 02:10 Dextrose 50% Syringe IV PUSH
[2020-01-31 14:59] VITALS: BP 107/48; PULSE 66; RESP 15; TEMP 36.6; O2SAT 96
[2020-01-31 17:01] LABS: Glucose Point of Care 255 (65-105)
--- NOTE | 2020-01-31 17:11 | PM.IMPN ---
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 restart pt 70/30 5 units am and pm Heladio is a 69 year old female who is currently in [facility] post stroke. The patient had been on Solu-Medrol and her blood sugars were high when she was in patient and now that she is off the steroids her blood sugars were dropping. Pt was not eating much having hypoglycemic attacks now. Insulin was completely stopped now can restart insulin slowly. Currently patient is on 70/30 units daily, 6 units with meals and low sliding scale, her blood sugars running above 200 will continue to monitor, patient denies any complaint and eating her lunch (2) History of CVA (cerebrovascular accident): Code(s): Z86.73 - Personal history of transient ischemic attack (TIA), and cerebral infarction without residual deficits Status: Acute Assessment and Plan: Patient is receiving rehab for stroke presently. The patient is on Plavix and aspirin. (3) HTN (hypertension): Qualifiers: Hypertension type: essential hypertension Qualified Code(s): I10 - Essential (primary) hypertension Code(s): I10 - Essential (primary) hypertension Status: Acute Assessment and Plan: Continue with Norvasc (4) HLD (hyperlipidemia): Code(s): E78.5 - Hyperlipidemia, unspecified Status: Acute Assessment and Plan: Continue with Crestor and fenofibrate. (5) Hypothyroidism: Code(s): E03.9 - Hypothyroidism, unspecified Status: Acute Assessment and Plan: Continue with levothyroxine (6) IBS (irritable bowel syndrome): Code(s): K58.9 - Irritable bowel syndrome without diarrhea Status: Acute Assessment and Plan: The patient sees specialist in [place]. Subjective Date/time seen: 01/31/20 17:11 Interval history: Heladio is a 69 year old female who is currently in [facility] post stroke. The patient had been on Solu-Medrol and her blood sugars were high when she was in patient and now that she is off the steroids her blood sugars were dropping. Pt was not eating much having hypoglycemic attacks now. Insulin was completely stopped now can restart insulin slowly. Currently patient is on 70/30 units daily, 6 units with meals and low sliding scale, her blood sugars running above 200 will continue to monitor, patient denies any complaint and eating her lunch Review of Systems Review of Systems: All systems reviewed & are unremarkable except as noted in HPI and below Exam Narrative: Exam Narrative: Elderly frail Const: General: comfortable and no acute distress HENMT: General nose exam: Normal nares present Mouth: Yes moist mucous membranes Eyes: General: appearance normal, both eyes and all related structures Sclera: sclerae normal Neck: Neck: supple Resp: Effort & Inspection: normal respiratory effort Auscultation: clear to auscultation bilaterally Cardio: Rate: regular rate Rhythm: regular rhythm GI: Auscultation: normal bowel sounds Skin: General skin exam: normal color and no rashes or lesions noted Neuro: Speech: normal speech Extrem: General: normal to inspection Psych: Affect: Anxious affect present Objective Data Vital Signs Vital Signs: Vital Signs - 24 hr 01/30/20 22:00 01/31/20 06:00 01/31/20 08:00 Temperature 97.1 F L 97.4 F L Pulse Rate 71 72 72 Respiratory Rate 20 18 18 Blood Pressure 150/55 H 130/76 Pulse Oximetry 100 96 96 01/31/20 14:59 Temperature 97.9 F Pulse Rate
[2020-01-31] MEDS: BISACODYL 5 MG TABLET EC PO (19:58)
[2020-01-31] MEDS: ACETAMINOPHEN 325 MG TABLET 650 MG PO (19:59)
[2020-01-31 21:18] LABS: Glucose Point of Care 235 (65-105)
[2020-01-31 22:00] VITALS: BP 149/55; PULSE 81; RESP 19; TEMP 37.6; O2SAT 96
[2020-01-31 22:50] VITALS: PULSE 80; O2SAT 96
[2020-02-01 06:00] VITALS: BP 140/68; PULSE 76; RESP 18; TEMP 36.5; O2SAT 96
[2020-02-01] MEDS: LEVOTHYROXINE SODIUM 100 MCG, LEVOTHYROXINE SODIUM 75 MCG 175 MCG PO (06:21)
[2020-02-01] MEDS: ACETAMINOPHEN 325 MG TABLET 650 MG PO (06:34)
[2020-02-01 07:13] LABS: Glucose Point of Care 139 (65-105)
[2020-02-01] MEDS: ASPIRIN 81 MG CHEWABLE TABLET PO (09:42)
[2020-02-01] MEDS: AMLODIPINE BESYLATE 5 MG TABLET 10 MG PO (09:43)
[2020-02-01] MEDS: ESCITALOPRAM OXALATE 10 MG TABLET 20 MG PO (09:43)
[2020-02-01] MEDS: CLOPIDOGREL BISULFATE 75 MG TABLET PO (09:43)
[2020-02-01] MEDS: PANTOPRAZOLE 40 MG TABLET PO (09:45)
[2020-02-01] MEDS: ERGOCALCIFEROL 50,000 UNIT CAPSULE 50000 UNITS PO (09:45)
[2020-02-01] MEDS: ROSUVASTATIN 10 MG TABLET 20 MG PO (09:45)
[2020-02-01] MEDS: FENOFIBRATE NANOCRYSTALLIZED 145 MG TABLET PO (09:45)
[2020-02-01] MEDS: SILVERGEL (ELTA) 45 ML 1 APPLIC TOPICAL (09:46)
[2020-02-01] MEDS: PREGABALIN 25 MG CAPSULE PO ×2 (10:15→20:31)
[2020-02-01 10:20] VITALS: PULSE 74; RESP 16; O2SAT 96
[2020-02-01 12:07] LABS: Glucose Point of Care 217 (65-105)
[2020-02-01] MEDS: INSULIN ASPART (*BKC) 100 UNITS/ML SUB-Q (12:35)
--- NOTE | 2020-02-01 13:52 | PCDIET ---
Nutrition Follow-Up Complete: Nutrition Diagnosis: Altered GI function related to chronic colitis as evidenced by frequent diarrhea, low appetite, and reported loss of 12lbs in 3 weeks. Nutrition Goal: Patient will tolerate diet and will consume greater than 75% of all meals Goal met. Patient consuming 75-100% of most meals on carbohydrate controlled diet. Recommend addition of heart healthy diet assisted. Last recorded weight is 86.6 kg. Recommend obtaining new weight. Bowel Motility: Last documented bowel movement on 01/28/20. Labs Reviewed: Glu (217) Meds Noted: Dulcolax, Novolog, Protonix, Drisdol Additional Notes: Patient has orders for prn Miralax and Colace. Right arm ulcer documented. Will continue to monitor with same goals. Nutrition Monitoring and Evaluation: Will follow up in 7 days.
[2020-02-01 14:00] VITALS: BP 131/56; PULSE 70; RESP 21; TEMP 36.1; O2SAT 98
[2020-02-01] MEDS: polyethylene glycoL 3350 17 GM POWD.PACK PO (14:20)
--- NOTE | 2020-02-01 16:48 | PM.IMPN ---
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 restart pt 70/30 5 units am and pm Heladio is a 69 year old female who is currently in [facility] post stroke. The patient had been on Solu-Medrol and her blood sugars were high when she was in patient and now that she is off the steroids her blood sugars were dropping. Pt was not eating much having hypoglycemic attacks now. Insulin was completely stopped now can restart insulin slowly. Currently patient is on 70/30 TID with meals and low sliding scale, her blood sugars running close 200, patient is clinically stable does not have any complaint will continue present management and signed off (2) History of CVA (cerebrovascular accident): Code(s): Z86.73 - Personal history of transient ischemic attack (TIA), and cerebral infarction without residual deficits Status: Acute Assessment and Plan: Patient is receiving rehab for stroke presently. The patient is on Plavix and aspirin. (3) HTN (hypertension): Qualifiers: Hypertension type: essential hypertension Qualified Code(s): I10 - Essential (primary) hypertension Code(s): I10 - Essential (primary) hypertension Status: Acute Assessment and Plan: Continue with Norvasc (4) HLD (hyperlipidemia): Code(s): E78.5 - Hyperlipidemia, unspecified Status: Acute Assessment and Plan: Continue with Crestor and fenofibrate. (5) Hypothyroidism: Code(s): E03.9 - Hypothyroidism, unspecified Status: Acute Assessment and Plan: Continue with levothyroxine (6) IBS (irritable bowel syndrome): Code(s): K58.9 - Irritable bowel syndrome without diarrhea Status: Acute Assessment and Plan: The patient sees specialist in [place]. Subjective Date/time seen: 02/01/20 16:48 Interval history: Heladio is a 69 year old female who is currently in [facility] post stroke. The patient had been on Solu-Medrol and her blood sugars were high when she was in patient and now that she is off the steroids her blood sugars were dropping. Pt was not eating much having hypoglycemic attacks now. Insulin was completely stopped now can restart insulin slowly. Currently patient is on 70/30 TID with meals and low sliding scale, her blood sugars running close 200, patient is clinically stable does not have any complaint will continue present management and signed off Review of Systems Review of Systems: All systems reviewed & are unremarkable except as noted in HPI and below Exam Const: General: comfortable and no acute distress HENMT: General nose exam: Normal nares present Mouth: Yes moist mucous membranes Eyes: General: appearance normal, both eyes and all related structures Sclera: sclerae normal Neck: Neck: supple Resp: Effort & Inspection: normal respiratory effort Auscultation: clear to auscultation bilaterally Cardio: Rate: regular rate Rhythm: regular rhythm GI: Auscultation: normal bowel sounds Skin: General skin exam: normal color Neuro: Speech: normal speech Sensory Exam: normal sensation Extrem: General: normal to inspection Psych: Affect: Anxious affect present Objective Data Vital Signs Vital Signs: Vital Signs - 24 hr 01/31/20 22:00 01/31/20 22:50 02/01/20 06:00 Temperature 99.6 F 97.7 F Pulse Rate 81 80 76 Respiratory Rate 19 18 Blood Pressure 149/55 H 140/68 Pulse Oximetry 96 96 96 02/01/20 10:20 02/01/20 14:00 Temperature 97.0 F L Pulse Rate 74
[2020-02-01 16:54] LABS: Glucose Point of Care 198 (65-105)
[2020-02-01] MEDS: BISACODYL 5 MG TABLET EC PO (20:32)
[2020-02-01 21:44] LABS: Glucose Point of Care 335 (65-105)
[2020-02-01 22:00] VITALS: BP 138/47; PULSE 68; RESP 16; TEMP 37.2; O2SAT 92; O2SAT 96
[2020-02-02 06:00] VITALS: BP 148/54; PULSE 72; RESP 20; TEMP 36.2; O2SAT 96
[2020-02-02] MEDS: LEVOTHYROXINE SODIUM 100 MCG, LEVOTHYROXINE SODIUM 75 MCG 175 MCG PO (07:03)
[2020-02-02 07:23] LABS: Glucose Point of Care 177 (65-105)
[2020-02-02] MEDS: ASPIRIN 81 MG CHEWABLE TABLET PO (08:11)
[2020-02-02] MEDS: ESCITALOPRAM OXALATE 10 MG TABLET 20 MG PO (08:13)
[2020-02-02] MEDS: AMLODIPINE BESYLATE 5 MG TABLET 10 MG PO (08:13)
[2020-02-02] MEDS: CLOPIDOGREL BISULFATE 75 MG TABLET PO (08:13)
[2020-02-02] MEDS: FENOFIBRATE NANOCRYSTALLIZED 145 MG TABLET PO (08:13)
[2020-02-02] MEDS: PANTOPRAZOLE 40 MG TABLET PO (08:15)
[2020-02-02] MEDS: polyethylene glycoL 3350 17 GM POWD.PACK PO ×2 (08:15→08:22)
[2020-02-02] MEDS: SILVERGEL (ELTA) 45 ML 1 APPLIC TOPICAL (08:16)
[2020-02-02] MEDS: ROSUVASTATIN 10 MG TABLET 20 MG PO (08:16)
[2020-02-02] MEDS: PREGABALIN 25 MG CAPSULE PO ×2 (08:22→20:35)
[2020-02-02] MEDS: TRAMADOL HCL 50 MG TABLET PO (10:06)
[2020-02-02] MEDS: INSULIN ASPART (*BKC) 100 UNITS/ML SUB-Q (12:14)
[2020-02-02 14:00] VITALS: BP 144/86; PULSE 80; RESP 18; TEMP 36.1; O2SAT 98
--- NOTE | 2020-02-02 14:33 | WPDNEURORHBP ---
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 along with poorly-controlled diabetes mellitus peripheral neuropathy cervical myelopathy and the burst fracture of the lumbar spine Functional Status Ambulation Ability Ability to Ambulate 10 Feet: Standby Assistance Ability to Ambulate 50 Feet With 2 Turns: Contact Guard Ability to Ambulate 150 Feet: Contact Guard Ambulation Assistive Devices: Walker, Rollator Transfers Ability Ability to Transfer In/Out of Chair: Standby Assistance Objective Data Vital Signs Vital Signs: Vital Signs - 24 hr 02/01/20 22:00 02/02/20 06:00 02/02/20 14:00 Temperature 37.2 C 36.2 C L 36.1 C L Pulse Rate 68 72 80 Respiratory Rate 16 20 18 Blood Pressure 138/47 L 148/54 H 144/86 H Pulse Oximetry 92 96 98 Intake/Output Intake/Output: Intake & Output 01/30/20 01/31/20 02/01/20 02/02/20 23:59 23:59 23:59 23:59 Intake Total 960 960 535 720 Balance 960 960 535 720 Meds/Results Medications: Active Medications Generic Name Dose Route Start Last Admin Trade Name Freq PRN Reason Stop Dose Admin Acetaminophen 650 mg 01/30/20 06:34 02/01/20 06:34 Tylenol Tablet PO 650 mg Q6H PRN Administration Mild Pain (1-3) or Fever Alprazolam 0.5 mg 01/26/20 15:49 Xanax PO BID PRN Anxiety Amlodipine Besylate 10 mg 01/27/20 09:00 02/02/20 08:13 Norvasc PO 10 mg DAILY DICK Administration Aspirin 81 mg 01/27/20 08:00 02/02/20 08:11 Aspirin Chewable PO 81 mg DAILY@0800 DICK Administration Bisacodyl 5 mg 01/27/20 21:00 02/01/20 20:32 Dulcolax Tab PO 5 mg HS DICK Administration Clopidogrel Bisulfate 75 mg 01/27/20 09:00 02/02/20 08:13 Plavix PO 75 mg QAM DICK Administration Dextrose 12.5 gm 01/26/20 15:59 01/28/20 02:10 Dextrose 50% Syringe IV PUSH 12.5 gm PRN PRN Administration Hypoglycemia Protocol Docusate Sodium 100 mg 01/27/20 09:39 Colace Capsule PO Q12H PRN Constipation Ergocalciferol 50,000 unit 02/01/20 09:00 02/01/20 09:45 Drisdol PO 50,000 unit WEEKLY DICK Administration Escitalopram Oxalate 20 mg 01/27/20 09:00 02/02/20 08:13 Lexapro PO 20 mg QAM DICK Administration Fenofibrate 145 mg 01/27/20 09:00 02/02/20 08:13 Tricor PO 145 mg QAM DICK Administration Glucagon 1 mg 01/26/20 15:59 01/27/20 22:10 Glucagon For Inj IM 1 mg PRN PRN Administration Hypoglycemia Protocol Glucose 15 gm 01/26/20 15:59 01/28/20 01:50 Glutose 15 PO 15 gm PRN PRN Administration Hypoglycemia Protocol Dextrose 1,000 mls @ 100 mls/hr 01/26/20 15:59 Dextrose 5% 1,000 Ml IVPB PRN PRN Hypoglycemia Protocol Insulin Aspart 3 - 6 units 01/26/20 17:00 02/02/20 12:14 Novolog SUB-Q 3 units TIDWM DICK Administration Protocol Levothyroxine Sodium 100 mcg/ 175 mcg 01/27/20 06:30 02/02/20 07:03 Levothyroxine Sodium 75 mcg PO 175 mcg DAILY@0630 DICK Administration Pantoprazole Sodium 40 mg 01/27/20 09:00 02/02/20 08:15 Protonix PO 40 mg QAM DICK Administration Polyethylene Glycol 17 gm 02/01/20 09:00 02/02/20 08:15 Miralax PO 17 gm QAM DICK Administration Pregabalin 25 mg 01/28/20 21:00 02/02/20 08:22 Lyrica PO 25 mg Q12HR DICK Administration Rosuvastatin Calcium 20 mg 01/27/20 09:00 02/02/20 08:16 Crestor PO 20 mg QAM DICK Administration Silver Nitrate 1 applic 01/29/20 09:00 02/02/20 08:16 Silvergel TOPICAL 1 applic DAILY DICK Administration Tramadol HCl 50 mg 01/28/20 14:24 02/02/20 10:06 Ultram PO 50 mg Q6H PRN Administration Pain Rated 4-6 Labs Labs: Laboratory Results - last 24 hr 02/01/20 02/01/20 02/02/20 16:51 20:38 06:58 POC Capillary Glucose 198 H 335 H 177 H
--- NOTE | 2020-02-02 14:40 | WPDNEURORHBP ---
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 along with poorly-controlled diabetes mellitus peripheral neuropathy cervical myelopathy and the burst fracture of the lumbar spine Functional Status Ambulation Ability Ability to Ambulate 10 Feet: Standby Assistance Ability to Ambulate 50 Feet With 2 Turns: Contact Guard Ability to Ambulate 150 Feet: Contact Guard Ambulation Assistive Devices: Walker, Rollator Transfers Ability Ability to Transfer In/Out of Chair: Standby Assistance Objective Data Vital Signs Vital Signs: Vital Signs - 24 hr 02/01/20 22:00 02/02/20 06:00 02/02/20 14:00 Temperature 37.2 C 36.2 C L 36.1 C L Pulse Rate 68 72 80 Respiratory Rate 16 20 18 Blood Pressure 138/47 L 148/54 H 144/86 H Pulse Oximetry 92 96 98 Intake/Output Intake/Output: Intake & Output 01/30/20 01/31/20 02/01/20 02/02/20 23:59 23:59 23:59 23:59 Intake Total 960 960 535 720 Balance 960 960 535 720 Meds/Results Medications: Active Medications Generic Name Dose Route Start Last Admin Trade Name Freq PRN Reason Stop Dose Admin Acetaminophen 650 mg 01/30/20 06:34 02/01/20 06:34 Tylenol Tablet PO 650 mg Q6H PRN Administration Mild Pain (1-3) or Fever Alprazolam 0.5 mg 01/26/20 15:49 Xanax PO BID PRN Anxiety Amlodipine Besylate 10 mg 01/27/20 09:00 02/02/20 08:13 Norvasc PO 10 mg DAILY DICK Administration Aspirin 81 mg 01/27/20 08:00 02/02/20 08:11 Aspirin Chewable PO 81 mg DAILY@0800 DICK Administration Bisacodyl 5 mg 01/27/20 21:00 02/01/20 20:32 Dulcolax Tab PO 5 mg HS DICK Administration Clopidogrel Bisulfate 75 mg 01/27/20 09:00 02/02/20 08:13 Plavix PO 75 mg QAM DICK Administration Dextrose 12.5 gm 01/26/20 15:59 01/28/20 02:10 Dextrose 50% Syringe IV PUSH 12.5 gm PRN PRN Administration Hypoglycemia Protocol Docusate Sodium 100 mg 01/27/20 09:39 Colace Capsule PO Q12H PRN Constipation Ergocalciferol 50,000 unit 02/01/20 09:00 02/01/20 09:45 Drisdol PO 50,000 unit WEEKLY DICK Administration Escitalopram Oxalate 20 mg 01/27/20 09:00 02/02/20 08:13 Lexapro PO 20 mg QAM DICK Administration Fenofibrate 145 mg 01/27/20 09:00 02/02/20 08:13 Tricor PO 145 mg QAM DICK Administration Glucagon 1 mg 01/26/20 15:59 01/27/20 22:10 Glucagon For Inj IM 1 mg PRN PRN Administration Hypoglycemia Protocol Glucose 15 gm 01/26/20 15:59 01/28/20 01:50 Glutose 15 PO 15 gm PRN PRN Administration Hypoglycemia Protocol Dextrose 1,000 mls @ 100 mls/hr 01/26/20 15:59 Dextrose 5% 1,000 Ml IVPB PRN PRN Hypoglycemia Protocol Insulin Aspart 3 - 6 units 01/26/20 17:00 02/02/20 12:14 Novolog SUB-Q 3 units TIDWM DICK Administration Protocol Insulin Aspart 6 units 02/02/20 14:33 Novolog Mix 70/30 Vial SUB-Q BID [facility] Levothyroxine Sodium 100 mcg/ 175 mcg 01/27/20 06:30 02/02/20 07:03 Levothyroxine Sodium 75 mcg PO 175 mcg DAILY@0630 DICK Administration Pantoprazole Sodium 40 mg 01/27/20 09:00 02/02/20 08:15 Protonix PO 40 mg QAM DICK Administration Polyethylene Glycol 17 gm 02/01/20 09:00 02/02/20 08:15 Miralax PO 17 gm QAM DICK Administration Pregabalin 25 mg 01/28/20 21:00 02/02/20 08:22 Lyrica PO 25 mg Q12HR DICK Administration Rosuvastatin Calcium 20 mg 01/27/20 09:00 02/02/20 08:16 Crestor PO 20 mg QAM DICK Administration Silver Nitrate 1 applic 01/29/20 09:00 02/02/20 08:16 Silvergel TOPICAL 1 applic DAILY DICK Administration Tramadol HCl 50 mg 01/28/20 14:24 02/02/20 10:06 Ultram PO 50 mg Q6H PRN Administration Pain Rated 4-6 Labs Labs: Laboratory Results - last 24 hr 02/01/20 02/01/20
--- NOTE | 2020-02-02 14:41 | WPDNEURORHBP ---
Subjective Date/time seen: 02/02/20 14:41 Interval history: this 69-year-old woman is here after having had a pontine stroke with increased left-sided hemiparesis along with cervical myelopathy related to cervical spondylosis and L4 burst fracture here main issue is the relatively poor control of the diabetes for which hospitalist have seen her and try to manipulate the insulin which I will do it further the patient is doing fairly well in the rehab and walking with the all walker pretty good denies any headache nausea vomiting chest pain or shortness of breath fever chills or sore throat Review of Systems Review of Systems: All systems reviewed & are unremarkable except as noted in HPI and below Functional Status Ambulation Ability Ability to Ambulate 10 Feet: Standby Assistance Ability to Ambulate 50 Feet With 2 Turns: Contact Guard Ability to Ambulate 150 Feet: Contact Guard Ambulation Assistive Devices: Walker, Rollator Transfers Ability Ability to Transfer In/Out of Chair: Standby Assistance Exam Const: General: comfortable and no acute distress HENMT: General nose exam: Normal nares present Mouth: Yes moist mucous membranes Eyes: General: appearance normal, both eyes and all related structures Neck: Neck: supple and no JVD Resp: Effort & Inspection: normal respiratory effort Auscultation: clear to auscultation bilaterally Cardio: Rate: regular rate Rhythm: regular rhythm GI: GI Palp: Yes Soft to palpation Auscultation: normal bowel sounds Skin: General skin exam: normal color and no rashes or lesions noted Neuro: Other: patient is awake alert and well oriented time present person she is legally blind in the left eye due to diabetic retinopathy has evidence of peripheral neuropathy which is stable she is able to walk fairly good her neurological status is improving on the left-sided hemiparesis improving reflexes remain depressed with the sensory deficit lower extremities more so than the upper extremities Extrem: General: normal to inspection Psych: Mental Status: mental status grossly normal Objective Data Vital Signs Vital Signs: Vital Signs - 24 hr 02/01/20 22:00 02/02/20 06:00 02/02/20 14:00 Temperature 37.2 C 36.2 C L 36.1 C L Pulse Rate 68 72 80 Respiratory Rate 16 20 18 Blood Pressure 138/47 L 148/54 H 144/86 H Pulse Oximetry 92 96 98 Intake/Output Intake/Output: Intake & Output 03/14/20 01/31/20 02/01/20 02/02/20 23:59 23:59 23:59 23:59 Intake Total 960 960 535 720 Balance 960 960 535 720 Meds/Results Medications: Active Medications Generic Name Dose Route Start Last Admin Trade Name Freq PRN Reason Stop Dose Admin Acetaminophen 650 mg 01/30/20 06:34 02/01/20 06:34 Tylenol Tablet PO 650 mg Q6H PRN Administration Mild Pain (1-3) or Fever Alprazolam 0.5 mg 01/26/20 15:49 Xanax PO BID PRN Anxiety Amlodipine Besylate 10 mg 01/27/20 09:00 02/02/20 08:13 Norvasc PO 10 mg DAILY DICK Administration Aspirin 81 mg 01/27/20 08:00 02/02/20 08:11 Aspirin Chewable PO 81 mg DAILY@0800 DICK Administration Bisacodyl 5 mg 01/27/20 21:00 02/01/20 20:32 Dulcolax Tab PO 5 mg HS DICK Administration Clopidogrel Bisulfate 75 mg 01/27/20 09:00 02/02/20 08:13 Plavix PO 75 mg QAM DICK Administration Dextrose 12.5 gm 01/26/20 15:59 01/28/20 02:10 Dextrose 50% Syringe IV PUSH 12.5 gm PRN PRN Administration Hypoglycemia Protocol Docusate Sodium 100 mg 01/27/20 09:39 Colace Capsule PO Q12H PRN Constipation Ergocalciferol 50,000 unit 02/01/20 09:00 02/01/20 09:45 Drisdol PO 50,000 unit WEEKLY DICK Administration Escitalopram Oxalate 20 mg 01/27/20 09:00 02/02/20 08:13 Lexapro PO 20 mg QAM DICK Administration Fenofibrate 145 mg 01/27/20 09:00 02/02/20 08:13 Tricor PO 145 mg QAM DICK Administration Glucagon 1 mg 01/26/20 15:59 01/27/20 22:10 Glu
[2020-02-02 15:31] LABS: Glucose Point of Care 239 (65-105)
[2020-02-02 17:05] LABS: Glucose Point of Care 175 (65-105)
[2020-02-02] MEDS: BISACODYL 5 MG TABLET EC PO (20:35)
[2020-02-02 20:54] LABS: Glucose Point of Care 258 (65-105)
[2020-02-02 22:00] VITALS: BP 132/51; PULSE 63; RESP 18; TEMP 36.1; O2SAT 94
[2020-02-03 05:19] LABS: Basophils Percent Auto 0.4 % (0.2-1.2); Eosinophils Percent Auto 0.4 % (0-4.4); Hematocrit 35.5 % (37.0-47.0); Immature Granulocyte Absolute 0.05 K/mm3 (0.00-0.031); Immature Granulocyte Percent A 0.7 % (0-0.5); Lymphocytes Absolute Auto 1.47 K/mm3 (0.9-3.2); Lymphocytes Percent Auto 20.2 % (18.3-44.2); Mean Corpuscular Volume 83.9 fl (80-100); Mean Platelet Volume 10.9 fl (7.4-10.4); Monocytes Absolute Auto 0.5 K/mm3 (0.1-0.6); Monocytes Percent Auto 7.4 % (2.6-8.5); Neutrophils Absolute Auto 5.1 K/mm3 (1.3-6.7); Neutrophils Percent Auto 70.9 % (45.5-73.1); Platelet Count Result 217 k/mm3 (150-375); Red Blood Count 4.23 M/mm3 (4.2-5.4); Red Cell Distribution Width 15.5 % (11.5-14.5); White Blood Count 7.3 K/mm3 (4.5-10.0)
[2020-02-03 05:25] LABS: Blood Urea Nitrogen 22 mg/dL (7-17); Calcium 8.4 mg/dL (8.4-10.2); Carbon Dioxide 32 mmol/L (22-30); Chloride 100 mmol/L (98-107); Estimated CRCL calculation 51 ml/min; Estimated Glomerular Filt Rate > 60; Glucose 213 mg/dL (65-105); Potassium 4.4 mmol/L (3.4-5.0); Sodium 133 mmol/L (137-145)
[2020-02-03 06:00] VITALS: BP 134/50; PULSE 60; RESP 18; TEMP 36.3; O2SAT 96
[2020-02-03] MEDS: LEVOTHYROXINE SODIUM 100 MCG, LEVOTHYROXINE SODIUM 75 MCG 175 MCG PO (06:16)
[2020-02-03 06:30] LABS: Glucose Point of Care 215 (65-105)
[2020-02-03 08:00] VITALS: PULSE 60; RESP 18; O2SAT 96
[2020-02-03] MEDS: CLOPIDOGREL BISULFATE 75 MG TABLET PO (08:24)
[2020-02-03] MEDS: ASPIRIN 81 MG CHEWABLE TABLET PO (08:24)
[2020-02-03] MEDS: PANTOPRAZOLE 40 MG TABLET PO (08:24)
[2020-02-03] MEDS: ROSUVASTATIN 10 MG TABLET 20 MG PO (08:24)
[2020-02-03] MEDS: polyethylene glycoL 3350 17 GM POWD.PACK PO (08:24)
[2020-02-03] MEDS: AMLODIPINE BESYLATE 5 MG TABLET 10 MG PO (08:25)
[2020-02-03] MEDS: FENOFIBRATE NANOCRYSTALLIZED 145 MG TABLET PO (08:25)
[2020-02-03] MEDS: ESCITALOPRAM OXALATE 10 MG TABLET 20 MG PO (08:25)
[2020-02-03] MEDS: SILVERGEL (ELTA) 45 ML 1 APPLIC TOPICAL (08:25)
[2020-02-03] MEDS: INSULIN ASPART (*BKC) 100 UNITS/ML SUB-Q ×2 (08:35→17:25)
[2020-02-03] MEDS: PREGABALIN 25 MG CAPSULE PO ×2 (08:35→20:21)
--- NOTE | 2020-02-03 10:35 | PCPTNOTE ---
Tamiko Leija was evaluated for a wheeled walker on 02/03/2020 by this physical therapist. The wheeled walker will resolve patient's mobility limitations and will be used for ADL's within the home. The patient can safely use the wheeled walker. ?The wheeled walker will resolve the patient?s mobility deficits, including standing balance deficit, increased safety with ambulation, and limited endurance. Patient does require use of wheeled walker to assess entry-way of bathroom and promote safety with ambulation on curbs- increase safety on curb with wheeled walker.
[2020-02-03 11:57] LABS: Glucose Point of Care 187 (65-105)
--- NOTE | 2020-02-03 12:44 | WPDNEURORHBP ---
Subjective Date/time seen: 02/03/20 12:44 Interval history: this 69-year-old woman is here with the right pontine stroke left hemiparesis blindness in the left eye diabetic peripheral neuropathy cervical myelopathy L4 burst fracture and doing remarkably well her sugars are getting better and she is improving really very well and happy she walked her 90 feet today denies any headache nausea vomiting chest bone shortness of breath fever chills or sore throat Review of Systems Review of Systems: All systems reviewed & are unremarkable except as noted in HPI and below Functional Status Ambulation Ability Ability to Ambulate 10 Feet: Standby Assistance Ability to Ambulate 50 Feet With 2 Turns: Contact Guard Ability to Ambulate 150 Feet: Contact Guard Ambulation Assistive Devices: Walker, Rollator Transfers Ability Ability to Transfer In/Out of Chair: Standby Assistance Exam Const: General: comfortable and no acute distress HENMT: General nose exam: Normal nares present Mouth: Yes moist mucous membranes Eyes: General: appearance normal, both eyes and all related structures Other: legally blind in the left eye and also decreased visual acuity bilaterally due to diabetic retinopathy Neck: Neck: supple and no JVD Resp: Effort & Inspection: normal respiratory effort Auscultation: clear to auscultation bilaterally Cardio: Rate: regular rate Rhythm: regular rhythm GI: GI Palp: Yes Soft to palpation Auscultation: normal bowel sounds Skin: General skin exam: normal color and no rashes or lesions noted Neuro: Other: patient is awake alert were which time present person is speech language functions are normal left-sided improving does have evidence of the peripheral neuropathy bilaterally lower extremities more so than the upper extremities back discomfort which are all stable evidence of cervical myelopathy is there however minimal Extrem: General: normal to inspection Psych: Mental Status: mental status grossly normal Objective Data Vital Signs Vital Signs: Vital Signs - 24 hr 02/02/20 14:00 02/02/20 22:00 02/03/20 06:00 Temperature 36.1 C L 36.1 C L 36.3 C L Pulse Rate 80 63 60 Respiratory Rate 18 18 18 Blood Pressure 144/86 H 132/51 L 134/50 L Pulse Oximetry 98 94 96 02/03/20 08:00 Temperature Pulse Rate 60 Respiratory Rate 18 Blood Pressure Pulse Oximetry 96 Intake/Output Intake/Output: Intake & Output 01/31/20 02/01/20 02/02/20 02/03/20 23:59 23:59 23:59 23:59 Intake Total 470 148 8647 240 Balance 660 329 2013 240 Meds/Results Medications: Active Medications Generic Name Dose Route Start Last Admin Trade Name Freq PRN Reason Stop Dose Admin Acetaminophen 650 mg 01/30/20 06:34 02/01/20 06:34 Tylenol Tablet PO 650 mg Q6H PRN Administration Mild Pain (1-3) or Fever Alprazolam 0.5 mg 01/26/20 15:49 Xanax PO BID PRN Anxiety Amlodipine Besylate 10 mg 01/27/20 09:00 02/03/20 08:25 Norvasc PO 10 mg DAILY DICK Administration Aspirin 81 mg 01/27/20 08:00 02/03/20 08:24 Aspirin Chewable PO 81 mg DAILY@0800 DICK Administration Bisacodyl 5 mg 01/27/20 21:00 02/02/20 20:35 Dulcolax Tab PO 5 mg HS DICK Administration Clopidogrel Bisulfate 75 mg 01/27/20 09:00 02/03/20 08:24 Plavix PO 75 mg QAM DICK Administration Dextrose 12.5 gm 01/26/20 15:59 01/28/20 02:10 Dextrose 50% Syringe IV PUSH 12.5 gm PRN PRN Administration Hypoglycemia Protocol Docusate Sodium 100 mg 01/27/20 09:39 Colace Capsule PO Q12H PRN Constipation Ergocalciferol 50,000 unit 02/01/20 09:00 02/01/20 09:45 Drisdol PO 50,000 unit WEEKLY DICK Administration Escitalopram Oxalate 20 mg 01/27/20 09:00 02/03/20 08:25 Lexapro PO 20 mg QAM DICK Administration Fenofibrate 145 mg 01/27/20 09:00 02/03/20 08:25 Tricor PO 145 mg QAM DICK Administration Glucagon 1 mg 01/26/20 15:59 01/26
[2020-02-03 14:00] VITALS: BP 138/66; PULSE 70; RESP 18; TEMP 36.2; O2SAT 94
[2020-02-03 17:07] LABS: Glucose Point of Care 360 (65-105)
[2020-02-03] MEDS: BISACODYL 5 MG TABLET EC PO (20:03)
[2020-02-03 20:35] LABS: Glucose Point of Care 179 (65-105)
[2020-02-03 21:36] VITALS: BP 123/57; PULSE 67; RESP 20; TEMP 36.2; O2SAT 98
[2020-02-03] MEDS: MAGNESIUM HYDROXIDE SUSP 30 ML UDC PO (23:00)
[2020-02-04] MEDS: LEVOTHYROXINE SODIUM 100 MCG, LEVOTHYROXINE SODIUM 75 MCG 175 MCG PO (05:55)
[2020-02-04 06:00] VITALS: BP 130/54; PULSE 60; RESP 20; TEMP 36.1; O2SAT 92
[2020-02-04 06:52] LABS: Glucose Point of Care 190 (65-105)
[2020-02-04 08:00] VITALS: PULSE 60; RESP 20; O2SAT 92
[2020-02-04] MEDS: ASPIRIN 81 MG CHEWABLE TABLET PO (08:34)
[2020-02-04] MEDS: PANTOPRAZOLE 40 MG TABLET PO (08:35)
[2020-02-04] MEDS: ESCITALOPRAM OXALATE 10 MG TABLET 20 MG PO (08:35)
[2020-02-04] MEDS: polyethylene glycoL 3350 17 GM POWD.PACK PO (08:36)
[2020-02-04] MEDS: SILVERGEL (ELTA) 45 ML 1 APPLIC TOPICAL (08:36)
[2020-02-04] MEDS: AMLODIPINE BESYLATE 5 MG TABLET 10 MG PO (08:36)
[2020-02-04] MEDS: ROSUVASTATIN 10 MG TABLET 20 MG PO (08:36)
[2020-02-04] MEDS: CLOPIDOGREL BISULFATE 75 MG TABLET PO (08:36)
[2020-02-04] MEDS: FENOFIBRATE NANOCRYSTALLIZED 145 MG TABLET PO (08:37)
[2020-02-04] MEDS: PREGABALIN 25 MG CAPSULE PO ×2 (08:40→21:01)
--- NOTE | 2020-02-04 10:56 | PC.NURSE ---
Patient had a suppository this a.m. with medium to large results.
--- NOTE | 2020-02-04 11:24 | WPDNEURORHBP ---
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 on the previous stroke she has done remarkably well in the rehab and walking quite a bat the patient is diabetic status at best is at fair control and I have to increase her NPH little bit otherwise she is doing fairly well no neck pain no headache nausea vomiting chest pain shortness of breath back pain is fairly decently controlled Review of Systems Review of Systems: All systems reviewed & are unremarkable except as noted in HPI and below Functional Status Ambulation Ability Ability to Ambulate 10 Feet: Standby Assistance Ability to Ambulate 50 Feet With 2 Turns: Standby Assistance Ability to Ambulate 150 Feet: Contact Guard Ambulation Assistive Devices: Walker, Rollator Transfers Ability Ability to Transfer In/Out of Chair: Standby Assistance Exam Const: General: comfortable and no acute distress HENMT: General nose exam: Normal nares present Mouth: Yes moist mucous membranes Eyes: General: appearance normal, both eyes and all related structures Neck: Neck: supple and no JVD Resp: Effort & Inspection: normal respiratory effort Auscultation: clear to auscultation bilaterally Cardio: Rate: regular rate Rhythm: regular rhythm GI: GI Palp: Yes Soft to palpation Auscultation: normal bowel sounds Skin: General skin exam: normal color and no rashes or lesions noted Neuro: Other: patient is awake alert and well oriented time place and person the decreased visual acuity remains stable neuropathy remains stable left-sided weakness is improving evidence of the cervical myelopathy is at best minimum Extrem: General: normal to inspection Psych: Mental Status: mental status grossly normal Objective Data Vital Signs Vital Signs: Vital Signs - 24 hr 02/03/20 14:00 02/03/20 21:36 02/04/20 06:00 Temperature 36.2 C L 36.2 C L 36.1 C L Pulse Rate 70 67 60 Respiratory Rate 18 20 20 Blood Pressure 138/66 123/57 L 130/54 L Pulse Oximetry 94 98 92 02/04/20 08:00 Temperature Pulse Rate 60 Respiratory Rate 20 Blood Pressure Pulse Oximetry 92 Intake/Output Intake/Output: Intake & Output 02/01/20 02/02/20 02/03/20 02/04/20 23:59 23:59 23:59 23:59 Intake Total 535 1080 1000 240 Balance 535 1080 1000 240 Meds/Results Medications: Active Medications Generic Name Dose Route Start Last Admin Trade Name Freq PRN Reason Stop Dose Admin Acetaminophen 650 mg 01/30/20 06:34 02/01/20 06:34 Tylenol Tablet PO 650 mg Q6H PRN Administration Mild Pain (1-3) or Fever Alprazolam 0.5 mg 01/26/20 15:49 Xanax PO BID PRN Anxiety Amlodipine Besylate 10 mg 01/27/20 09:00 02/04/20 08:36 Norvasc PO 10 mg DAILY DICK Administration Aspirin 81 mg 01/27/20 08:00 02/04/20 08:34 Aspirin Chewable PO 81 mg DAILY@0800 DICK Administration Bisacodyl 5 mg 01/27/20 21:00 02/03/20 20:03 Dulcolax Tab PO 5 mg HS DICK Administration Bisacodyl 10 mg 02/04/20 08:16 Dulcolax Suppository RECTAL QAM PRN Constipation Clopidogrel Bisulfate 75 mg 01/27/20 09:00 02/04/20 08:36 Plavix PO 75 mg QAM DICK Administration Dextrose 12.5 gm 01/26/20 15:59 01/28/20 02:10 Dextrose 50% Syringe IV PUSH 12.5 gm PRN PRN Administration Hypoglycemia Protocol Docusate Sodium 100 mg 02/04/20 10:00 Colace Capsule PO Q12HR [facility] Ergocalciferol 50,000 unit 02/01/20 09:00 02/01/20 09:45 Drisdol PO 50,000 unit WEEKLY DICK Administration Escitalopram Oxalate 20 mg 01/27/20 09:00 02/04/20 08:35 Lexapro PO 20 mg QAM DICK Administration Fenofibrate 145 mg 01/27/20 09:00 02/04/20 08:37 Tricor PO 145 mg QAM DICK Administration Glucagon 1 mg 01/26/20 15:59 01/27/20 22:10 Glucagon For Inj IM 1 mg PRN PRN Administr
[2020-02-04 12:18] LABS: Glucose Point of Care 321 (65-105)
[2020-02-04] MEDS: INSULIN ASPART (*BKC) 100 UNITS/ML SUB-Q ×2 (12:24→17:18)
[2020-02-04] MEDS: DOCUSATE SODIUM 100 MG CAPSULE PO ×2 (13:06→21:01)
[2020-02-04 14:00] VITALS: BP 130/51; PULSE 78; RESP 18; TEMP 36.1; O2SAT 100
--- NOTE | 2020-02-04 14:50 | PCCDE ---
Consult received 02/01; attempted to see but pt still in therapy. Will f/up tomorrow.
[2020-02-04 16:58] LABS: Glucose Point of Care 237 (65-105)
[2020-02-04 20:53] LABS: Glucose Point of Care 344 (65-105)
[2020-02-04] MEDS: BISACODYL 5 MG TABLET EC PO (21:01)
[2020-02-04 22:00] VITALS: BP 133/42; PULSE 66; RESP 20; TEMP 37.2; O2SAT 93
[2020-02-05] MEDS: LEVOTHYROXINE SODIUM 100 MCG, LEVOTHYROXINE SODIUM 75 MCG 175 MCG PO (05:52)
[2020-02-05 06:00] VITALS: BP 138/56; PULSE 74; RESP 20; TEMP 37.1; O2SAT 95
[2020-02-05 07:10] LABS: Glucose Point of Care 181 (65-105)
[2020-02-05] MEDS: ROSUVASTATIN 10 MG TABLET 20 MG PO (08:50)
[2020-02-05] MEDS: ESCITALOPRAM OXALATE 10 MG TABLET 20 MG PO (08:51)
[2020-02-05] MEDS: AMLODIPINE BESYLATE 5 MG TABLET 10 MG PO (08:51)
[2020-02-05] MEDS: ASPIRIN 81 MG CHEWABLE TABLET PO (08:51)
[2020-02-05] MEDS: CLOPIDOGREL BISULFATE 75 MG TABLET PO (08:51)
[2020-02-05] MEDS: FENOFIBRATE NANOCRYSTALLIZED 145 MG TABLET PO (08:52)
[2020-02-05] MEDS: PANTOPRAZOLE 40 MG TABLET PO (08:52)
[2020-02-05] MEDS: PREGABALIN 25 MG CAPSULE PO ×2 (08:53→20:06)
[2020-02-05] MEDS: polyethylene glycoL 3350 17 GM POWD.PACK PO (09:33)
[2020-02-05] MEDS: DOCUSATE SODIUM 100 MG CAPSULE PO ×2 (09:34→20:03)
[2020-02-05 12:05] LABS: Glucose Point of Care 278 (65-105)
[2020-02-05] MEDS: INSULIN ASPART (*BKC) 100 UNITS/ML SUB-Q ×2 (12:07→17:02)
--- NOTE | 2020-02-05 12:20 | WPDNEURORHBP ---
Subjective Date/time seen: 02/05/20 12:20 Interval history: this 69-year-old diabetic woman is here after having had right pontine stroke with left-sided hemiparesis from which she is improving quite a bit however sugars have been fluctuating and she is in past 24 hours are in 200s in summer 300s so I will go ahead increase the 70 30 insulin to 80 units twice a day Patient otherwise is doing fairly well does not have any complains of neck pain she does have a mild low back pain from the L4 burst fracture no headache nausea vomiting chest pain shortness of breath fever chills or sore throat Review of Systems Review of Systems: All systems reviewed & are unremarkable except as noted in HPI and below Functional Status Ambulation Ability Ability to Ambulate 10 Feet: Independent Ability to Ambulate 50 Feet With 2 Turns: Standby Assistance Ability to Ambulate 150 Feet: Standby Assistance Ambulation Assistive Devices: Walker, Rollator Transfers Ability Ability to Transfer In/Out of Chair: Standby Assistance Exam Const: General: comfortable and no acute distress HENMT: General nose exam: Normal nares present Mouth: Yes moist mucous membranes Eyes: Other: decreased visual acuity left much more so than the right due to diabetic retinopathy Neck: Neck: supple and no JVD Resp: Effort & Inspection: normal respiratory effort Auscultation: clear to auscultation bilaterally Cardio: Rate: regular rate Rhythm: regular rhythm GI: GI Palp: Yes Soft to palpation Auscultation: normal bowel sounds Skin: General skin exam: normal color and no rashes or lesions noted Neuro: Other: patient is awake and alert well oriented to time place and person has normal speech and language functions normal cranial examination save for the diabetic retinopathy and a mild left-sided facial weakness left-sided hemiparesis improving she also has evidence of significant peripheral neuropathy and evidence of the myelopathy as mentioned in my previous notes these are all stable however Extrem: General: normal to inspection Psych: Mental Status: mental status grossly normal Objective Data Vital Signs Vital Signs: Vital Signs - 24 hr 02/04/20 14:00 02/04/20 22:00 02/05/20 06:00 Temperature 36.1 C L 37.2 C 37.1 C Pulse Rate 78 66 74 Respiratory Rate 18 20 20 Blood Pressure 130/51 L 133/42 L 138/56 L Pulse Oximetry 100 93 95 Intake/Output Intake/Output: Intake & Output 02/02/20 02/03/20 02/04/20 02/05/20 23:59 23:59 23:59 23:59 Intake Total 1080 1000 540 480 Balance 1080 1000 540 480 Meds/Results Medications: Active Medications Generic Name Dose Route Start Last Admin Trade Name Freq PRN Reason Stop Dose Admin Acetaminophen 650 mg 01/30/20 06:34 02/01/20 06:34 Tylenol Tablet PO 650 mg Q6H PRN Administration Mild Pain (1-3) or Fever Alprazolam 0.5 mg 01/26/20 15:49 Xanax PO BID PRN Anxiety Amlodipine Besylate 10 mg 01/27/20 09:00 02/05/20 08:51 Norvasc PO 10 mg DAILY DICK Administration Aspirin 81 mg 01/27/20 08:00 02/05/20 08:51 Aspirin Chewable PO 81 mg DAILY@0800 DICK Administration Bisacodyl 5 mg 01/27/20 21:00 02/04/20 21:01 Dulcolax Tab PO 5 mg HS DICK Administration Bisacodyl 10 mg 02/04/20 08:16 Dulcolax Suppository RECTAL QAM PRN Constipation Clopidogrel Bisulfate 75 mg 01/27/20 09:00 02/05/20 08:51 Plavix PO 75 mg QAM DICK Administration Dextrose 12.5 gm 01/26/20 15:59 01/28/20 02:10 Dextrose 50% Syringe IV PUSH 12.5 gm PRN PRN Administration Hypoglycemia Protocol Docusate Sodium 100 mg 02/04/20 10:00 02/05/20 09:34 Colace Capsule PO 100 mg Q12HR DICK Administration Ergocalciferol 50,000 unit 02/01/20 09:00 02/01/20 09:45 Drisdol PO 50,000 unit WEEKLY DICK Administration Escitalopram Oxalate 20 mg 01/27/20 09:00 02/05/20 08:51 Lexapro PO 20 mg QAM DICK Administration Feno
[2020-02-05 14:00] VITALS: BP 150/61; PULSE 73; RESP 18; TEMP 36.1; O2SAT 100
[2020-02-05 14:35] VITALS: BMI 36.1
[2020-02-05 16:59] LABS: Glucose Point of Care 314 (65-105)
[2020-02-05] MEDS: BISACODYL 5 MG TABLET EC PO (20:04)
[2020-02-05 22:00] VITALS: BP 132/54; PULSE 71; RESP 18; TEMP 36.7; O2SAT 96
[2020-02-05 22:25] LABS: Glucose Point of Care 261 (65-105)
[2020-02-06] MEDS: LEVOTHYROXINE SODIUM 100 MCG, LEVOTHYROXINE SODIUM 75 MCG 175 MCG PO (05:57)
[2020-02-06 06:00] VITALS: BP 138/68; PULSE 76; RESP 20; TEMP 37.1; O2SAT 97
[2020-02-06 06:31] LABS: Glucose Point of Care 209 (65-105)
[2020-02-06] MEDS: INSULIN ASPART (*BKC) 100 UNITS/ML SUB-Q ×3 (07:53→17:18)
[2020-02-06] MEDS: ROSUVASTATIN 10 MG TABLET 20 MG PO (08:00)
[2020-02-06] MEDS: AMLODIPINE BESYLATE 5 MG TABLET 10 MG PO (08:00)
[2020-02-06] MEDS: PANTOPRAZOLE 40 MG TABLET PO (08:00)
[2020-02-06] MEDS: ESCITALOPRAM OXALATE 10 MG TABLET 20 MG PO (08:00)
[2020-02-06] MEDS: CLOPIDOGREL BISULFATE 75 MG TABLET PO (08:01)
[2020-02-06] MEDS: ASPIRIN 81 MG CHEWABLE TABLET PO (08:01)
[2020-02-06] MEDS: DOCUSATE SODIUM 100 MG CAPSULE PO ×2 (08:01→20:54)
[2020-02-06] MEDS: FENOFIBRATE NANOCRYSTALLIZED 145 MG TABLET PO (08:01)
[2020-02-06] MEDS: PREGABALIN 25 MG CAPSULE PO ×2 (08:26→20:57)
[2020-02-06] MEDS: polyethylene glycoL 3350 17 GM POWD.PACK PO (08:26)
[2020-02-06 12:09] LABS: Glucose Point of Care 277 (65-105)
[2020-02-06 14:00] VITALS: BP 164/62; PULSE 65; RESP 18; TEMP 36; O2SAT 97
--- NOTE | 2020-02-06 15:36 | WPDNEURORHBP ---
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 Review of Systems Review of Systems: All systems reviewed & are unremarkable except as noted in HPI and below Functional Status Ambulation Ability Ability to Ambulate 10 Feet: Independent Ability to Ambulate 50 Feet With 2 Turns: Independent Ability to Ambulate 150 Feet: Independent Ambulation Assistive Devices: Walker, Rollator Transfers Ability Ability to Transfer In/Out of Chair: Standby Assistance Exam Const: General: comfortable and no acute distress HENMT: General nose exam: Normal nares present Mouth: Yes moist mucous membranes Eyes: General: appearance normal, both eyes and all related structures Other: the visual acuity in the blindness in the left eye remains the same related to diabetic retinopathy Neck: Neck: supple and no JVD Resp: Effort & Inspection: normal respiratory effort Auscultation: clear to auscultation bilaterally Cardio: Rate: regular rate Rhythm: regular rhythm GI: GI Palp: Yes Soft to palpation Auscultation: normal bowel sounds Skin: General skin exam: normal color and no rashes or lesions noted Neuro: Other: patient is awake alert well oriented time present person has normal speech Luis function any dysarthria she has had has resolved left-sided hemiparesis is improved evidence of neuropathy remains the same the evidence of myelopathy is minimum at this past she is able to walk fairly decently with the use of the walker Extrem: General: normal to inspection Psych: Mental Status: mental status grossly normal Objective Data Vital Signs Vital Signs: Vital Signs - 24 hr 02/05/20 22:00 02/06/20 06:00 Temperature 36.7 C 37.1 C Pulse Rate 71 76 Respiratory Rate 18 20 Blood Pressure 132/54 L 138/68 Pulse Oximetry 96 97 Intake/Output Intake/Output: Intake & Output 02/03/20 02/04/20 02/05/20 02/06/20 23:59 23:59 23:59 23:59 Intake Total 1000 540 840 840 Balance 1000 540 840 840 Meds/Results Medications: Active Medications Generic Name Dose Route Start Last Admin Trade Name Freq PRN Reason Stop Dose Admin Acetaminophen 650 mg 01/30/20 06:34 02/01/20 06:34 Tylenol Tablet PO 650 mg Q6H PRN Administration Mild Pain (1-3) or Fever Alprazolam 0.5 mg 01/26/20 15:49 Xanax PO BID PRN Anxiety Amlodipine Besylate 10 mg 01/27/20 09:00 02/06/20 08:00 Norvasc PO 10 mg DAILY DICK Administration Aspirin 81 mg 01/27/20 08:00 02/06/20 08:01 Aspirin Chewable PO 81 mg DAILY@0800 DICK Administration Bisacodyl 5 mg 01/27/20 21:00 02/05/20 20:04 Dulcolax Tab PO 5 mg HS DICK Administration Bisacodyl 10 mg 02/04/20 08:16 Dulcolax Suppository RECTAL QAM PRN Constipation Clopidogrel Bisulfate 75 mg 01/27/20 09:00 02/06/20 08:01 Plavix PO 75 mg QAM DICK Administration Dextrose 12.5 gm 01/26/20 15:59 01/28/20 02:10 Dextrose 50% Syringe IV PUSH 12.5 gm PRN PRN Administration Hypoglycemia Protocol Docusate Sodium 100 mg 02/04/20 10:00 02/06/20 08:01 Colace Capsule PO 100 mg Q12HR DICK Administration Ergocalciferol 50,000 unit 02/01/20 09:00 02/01/20 09:45 Drisdol PO 50,000 unit WEEKLY DICK Administration Escitalopram Oxalate 20 mg 01/27/20 09:00 02/06/20 08:00 Lexapro PO 20 mg QAM DICK Administration Fenofibrate 145 mg 01/27/20 09:00 02/06/20 08:01 Tricor PO 145 mg QAM DICK Administration Glucagon 1 mg 01/26/20 1
[2020-02-06 17:13] LABS: Glucose Point of Care 249 (65-105)
[2020-02-06] MEDS: BISACODYL 5 MG TABLET EC PO (20:54)
[2020-02-06 21:12] LABS: Glucose Point of Care 301 (65-105)
[2020-02-06 22:00] VITALS: BP 148/72; PULSE 66; RESP 18; TEMP 36.1; O2SAT 98
[2020-02-07] MEDS: LEVOTHYROXINE SODIUM 100 MCG, LEVOTHYROXINE SODIUM 75 MCG 175 MCG PO (05:42)
[2020-02-07] MEDS: TRAMADOL HCL 50 MG TABLET PO (05:47)
[2020-02-07 06:00] VITALS: BP 149/84; PULSE 69; RESP 18; TEMP 36.1; O2SAT 96
[2020-02-07 06:56] LABS: Glucose Point of Care 216 (65-105)
[2020-02-07] MEDS: polyethylene glycoL 3350 17 GM POWD.PACK PO (09:39)
[2020-02-07] MEDS: PREGABALIN 25 MG CAPSULE PO ×2 (09:39→20:45)
[2020-02-07] MEDS: INSULIN ASPART (*BKC) 100 UNITS/ML SUB-Q ×3 (09:44→16:59)
[2020-02-07] MEDS: AMLODIPINE BESYLATE 5 MG TABLET 10 MG PO (09:46)
[2020-02-07] MEDS: CLOPIDOGREL BISULFATE 75 MG TABLET PO (09:46)
[2020-02-07] MEDS: ASPIRIN 81 MG CHEWABLE TABLET PO (09:46)
[2020-02-07] MEDS: FENOFIBRATE NANOCRYSTALLIZED 145 MG TABLET PO (09:47)
[2020-02-07] MEDS: ROSUVASTATIN 10 MG TABLET 20 MG PO (09:47)
[2020-02-07] MEDS: ESCITALOPRAM OXALATE 10 MG TABLET 20 MG PO (09:47)
[2020-02-07] MEDS: PANTOPRAZOLE 40 MG TABLET PO (09:47)
[2020-02-07] MEDS: DOCUSATE SODIUM 100 MG CAPSULE PO ×2 (09:48→20:43)
[2020-02-07] MEDS: SILVERGEL (ELTA) 45 ML 1 APPLIC TOPICAL (09:48)
[2020-02-07 11:50] LABS: Glucose Point of Care 283 (65-105)
[2020-02-07 14:00] VITALS: BP 136/60; PULSE 68; RESP 18; TEMP 36.3; O2SAT 96
--- NOTE | 2020-02-07 15:50 | WPDNEURORHBP ---
Subjective Date/time seen: 02/07/20 15:50 Interval history: this 69-year-old woman is here after having had right-sided pontine stroke with left-sided hemiparesis she is improving significantly has walked 280 feet today. She denies any headache nausea vomiting chest pain or shortness of breath The patient does have evidence of cervical myelopathy and significant peripheral neuropathy for which she needs to be followed post discharge however she seems like she is not interested any kind of surgical maneuvers on her cervical spine as she has definitely gotten significantly better from the time we have received her here. All questions were answered option risk in the benefits have been discussed on multiple occasions with her and her family Review of Systems Review of Systems: All systems reviewed & are unremarkable except as noted in HPI and below Functional Status Ambulation Ability Ability to Ambulate 10 Feet: Independent Ability to Ambulate 50 Feet With 2 Turns: Independent Ability to Ambulate 150 Feet: Independent Ambulation Assistive Devices: Walker, Wheeled Transfers Ability Ability to Transfer In/Out of Chair: Standby Assistance Exam Const: General: comfortable and no acute distress HENMT: General nose exam: Normal nares present Mouth: Yes moist mucous membranes Eyes: General: appearance normal, both eyes and all related structures Other: patient has bilateral decreased visual acuity left more than the right related to diabetic retinopathy which is stable Neck: Neck: supple and no JVD Resp: Effort & Inspection: normal respiratory effort Auscultation: clear to auscultation bilaterally Cardio: Rate: regular rate Rhythm: regular rhythm GI: GI Palp: Yes Soft to palpation Auscultation: normal bowel sounds Skin: General skin exam: normal color and no rashes or lesions noted Neuro: Other: patient is awake alert were oriented times person person has normal speech and function normal cranial examination except diabetic retinopathy and subtle left-sided facial weakness has significantly improved left-sided hemiparesis with underlying peripheral neuropathy evidence of which on clinical examination is quite visible and certainly some component of cervical myelopathy with which she really is asymptomatic and there is no radicular component to right home about Extrem: General: normal to inspection Psych: Mental Status: mental status grossly normal Objective Data Vital Signs Vital Signs: Vital Signs - 24 hr 02/06/20 22:00 02/07/20 06:00 02/07/20 14:00 Temperature 36.1 C L 36.1 C L 36.3 C L Pulse Rate 66 69 68 Respiratory Rate 18 18 18 Blood Pressure 148/72 H 149/84 H 136/60 Pulse Oximetry 98 96 96 Intake/Output Intake/Output: Intake & Output 02/04/20 02/05/20 02/06/20 02/07/20 23:59 23:59 23:59 23:59 Intake Total 380 923 8196 720 Balance 478 980 2706 720 Meds/Results Medications: Active Medications Generic Name Dose Route Start Last Admin Trade Name Freq PRN Reason Stop Dose Admin Acetaminophen 650 mg 01/30/20 06:34 02/01/20 06:34 Tylenol Tablet PO 650 mg Q6H PRN Administration Mild Pain (1-3) or Fever Alprazolam 0.5 mg 01/26/20 15:49 Xanax PO BID PRN Anxiety Amlodipine Besylate 10 mg 01/27/20 09:00 02/07/20 09:46 Norvasc PO 10 mg DAILY DICK Administration Aspirin 81 mg 01/27/20 08:00 02/07/20 09:46 Aspirin Chewable PO 81 mg DAILY@0800 DICK Administration Bisacodyl 5 mg 01/27/20 21:00 02/06/20 20:54 Dulcolax Tab PO 5 mg HS DICK Administration Bisacodyl 10 mg 02/04/20 08:16 Dulcolax Suppository RECTAL QAM PRN Constipation Clopidogrel Bisulfate 75 mg 01/27/20 09:00 02/07/20 09:46 Plavix PO 75 mg QAM DICK Administration Dextrose 12.5 gm 01/26/20 15:59 01/28/20 02:10 Dextrose 50% Syringe IV PUSH 12.5 gm PRN PRN Administration Hypoglycemia Protocol Docusate Sodium 100 mg 02/04/20
[2020-02-07 16:58] LABS: Glucose Point of Care 289 (65-105)
[2020-02-07] MEDS: BISACODYL 5 MG TABLET EC PO (20:43)
[2020-02-07 20:58] LABS: Glucose Point of Care 303 (65-105)
[2020-02-07 21:28] VITALS: BP 132/50; PULSE 67; RESP 20; TEMP 36; O2SAT 94
[2020-02-08 06:00] VITALS: BP 124/61; PULSE 64; RESP 20; TEMP 36.1; O2SAT 99
[2020-02-08] MEDS: LEVOTHYROXINE SODIUM 100 MCG, LEVOTHYROXINE SODIUM 75 MCG 175 MCG PO (06:43)
[2020-02-08 07:02] LABS: Glucose Point of Care 212 (65-105)
[2020-02-08] MEDS: INSULIN ASPART (*BKC) 100 UNITS/ML SUB-Q ×4 (09:52→17:43)
[2020-02-08] MEDS: ROSUVASTATIN 10 MG TABLET 20 MG PO (10:03)
[2020-02-08] MEDS: ESCITALOPRAM OXALATE 10 MG TABLET 20 MG PO (10:03)
[2020-02-08] MEDS: AMLODIPINE BESYLATE 5 MG TABLET 10 MG PO (10:04)
[2020-02-08] MEDS: FENOFIBRATE NANOCRYSTALLIZED 145 MG TABLET PO (10:04)
[2020-02-08] MEDS: CLOPIDOGREL BISULFATE 75 MG TABLET PO (10:04)
[2020-02-08] MEDS: ERGOCALCIFEROL 50,000 UNIT CAPSULE 50000 UNITS PO (10:04)
[2020-02-08] MEDS: PANTOPRAZOLE 40 MG TABLET PO (10:05)
[2020-02-08] MEDS: ASPIRIN 81 MG CHEWABLE TABLET PO (10:05)
[2020-02-08] MEDS: PREGABALIN 25 MG CAPSULE PO ×2 (10:09→20:41)
[2020-02-08 11:52] LABS: Glucose Point of Care 256 (65-105)
--- NOTE | 2020-02-08 11:53 | WPDNEURORHBP ---
Subjective Date/time seen: Pontine stroke with cervical [id number]/23/20 11:53 Review of Systems Review of Systems: All systems reviewed & are unremarkable except as noted in HPI and below Functional Status Ambulation Ability Ability to Ambulate 10 Feet: Independent Ability to Ambulate 50 Feet With 2 Turns: Independent Ability to Ambulate 150 Feet: Independent Ambulation Assistive Devices: Walker, Rollator Transfers Ability Ability to Transfer In/Out of Chair: Independent Exam Const: General: cooperative, comfortable and no acute distress HENMT: Mouth: Yes Normal oral and palatal mucosa present Throat: posterior oropharynx normal Eyes: General: appearance normal, both eyes and all related structures Visual Purcell: normal visual purcell by confrontation (decreased visual acuity) Alignment and Position: alignment normal Neck: Neck: full ROM Resp: Effort & Inspection: normal respiratory effort Auscultation: clear to auscultation bilaterally Cardio: Rate: regular rate GI: Auscultation: normal bowel sounds Skin: General skin exam: no rashes or lesions noted Neuro: General: patient oriented x3 and moves all extremities Cranial nerves: Yes CN's II-XII intact bilaterally (left facial subtle), Yes Nystagmus not present, Yes Midline tongue present, Yes Symmetric palate elevation present and Yes Ability to bilaterally rotate head present Cognition (Neuro): normal cognition Speech: normal speech Motor exam (neuro): 5/5 motor strength present throughout (left imelda improving) Sensory Exam: Sensory deficit (Neuro) (distally) Deep tendon reflexes (DTR's): Right triceps reflex intensity grade: 1+, Left triceps reflex intensity grade: 1+, Rt Biceps (C5, C6): 1+, Right brachioradialis reflex intensity grade: 1+, Left brachioradialis reflex intensity grade: 1+, Right patellar reflex intensity grade: 1+, Left patellar reflex intensity grade: 1+, Right ankle reflex intensity grade: 0 and Left ankle reflex intensity grade: 0 Plantar Reflex Responses: equivocal: bilateral Objective Data Vital Signs Vital Signs: Vital Signs - 24 hr 02/07/20 14:00 02/07/20 21:28 02/08/20 06:00 Temperature 36.3 C L 36.0 C L 36.1 C L Pulse Rate 68 67 64 Respiratory Rate 18 20 20 Blood Pressure 136/60 132/50 L 124/61 Pulse Oximetry 96 94 99 Intake/Output Intake/Output: Intake & Output 02/05/20 02/06/20 02/07/20 02/08/20 23:59 23:59 23:59 23:59 Intake Total 840 1080 1080 Balance 840 1080 1080 Meds/Results Medications: Active Medications Generic Name Dose Route Start Last Admin Trade Name Freq PRN Reason Stop Dose Admin Acetaminophen 650 mg 01/30/20 06:34 02/01/20 06:34 Tylenol Tablet PO 650 mg Q6H PRN Administration Mild Pain (1-3) or Fever Alprazolam 0.5 mg 01/26/20 15:49 Xanax PO BID PRN Anxiety Amlodipine Besylate 10 mg 01/27/20 09:00 02/08/20 10:04 Norvasc PO 10 mg DAILY DICK Administration Aspirin 81 mg 01/27/20 08:00 02/08/20 10:05 Aspirin Chewable PO 81 mg DAILY@0800 DICK Administration Bisacodyl 5 mg 01/27/20 21:00 02/07/20 20:43 Dulcolax Tab PO 5 mg HS DICK Administration Bisacodyl 10 mg 02/04/20 08:16 Dulcolax Suppository RECTAL QAM PRN Constipation Clopidogrel Bisulfate 75 mg 01/27/20 09:00 02/08/20 10:04 Plavix PO 75 mg QAM DICK Administration Dextrose 12.5 gm 01/26/20 15:59 01/28/20 02:10 Dextrose 50% Syringe IV PUSH 12.5 gm PRN PRN Administration Hypoglycemia Protocol Docusate Sodium 100 mg 02/04/20 10:00 02/07/20 20:43 Colace Capsule PO 100 mg Q12HR DICK Administration Ergocalciferol 50,000 unit 02/01/20 09:00 02/08/20 10:04 Drisdol PO 50,000 unit WEEKLY DICK Administration Escitalopram Oxalate 20 mg 01/27/20 09:00 02/08/20 10:03 Lexapro PO 20 mg QAM DICK Administration Fenofibrate 145 mg 01/27/20 09:00 02/08/20 10:04 Tricor PO 145 mg QAM DICK Admin
--- NOTE | 2020-02-08 12:12 | PCDIET ---
Nutrition Follow-Up Complete: Nutrition Diagnosis: Altered GI function related to chronic colitis as evidenced by frequent diarrhea, low appetite, and reported loss of 12lbs in 3 weeks. Nutrition Goal: Patient will tolerate diet and will consume greater than 75% of all meals Goal met. Patient consuming 80-100% of most meals on diabetic diet. Recommend addition of heart healthy component to reduce risk of future CVA. Last recorded weight is 86.6 kg. Recommend obtaining new weight. Bowel Motility: +BM today. Labs Reviewed: Glu (256) Meds Noted: Dulcolax, Colace, Drisdol, Novolog, Protonix, Miralax, Additional Notes: No documented pressure sores. Nutrition Monitoring and Evaluation: Follow up in 7 days.
[2020-02-08 14:00] VITALS: BP 130/68; PULSE 72; RESP 18; TEMP 36.6; O2SAT 98
--- NOTE | 2020-02-08 14:35 | PCCDE ---
diabetes education f/up: 1435: Novolog Mix 70/30 was increased yesterday to 10 units BID however BG continues to range 212-303mg/dl. Met with pt and again discussed option of basal bolus regimen and pt is willing to try as pt notes she has struggled with BG with premixed insulin. 1615: Called endo office and spoke to Eugenie GIBSON; 1) noted next appt is 03/17 (not 02/11 as pt thought) 2) discussed changing to basal bolus; Eugenie was in agreement but thought the pt may have been using Novolin 70/30 d/t cost. Eugenie requested that if pt is discharged tomorrow, that pt should call the office on /Sat of this week to report BG. 1630: spoke to pt; pt sts she did have Medicaid and I need to reapply . Attempted to reach but already gone for the day. Informed pt that basal bolus could be more expensive but pt sts insulin is her only cost and she is okay with trying that. Sts sometimes she can get insulin from the doctors office. Discussed with RN and Dr Monroe was called for orders and orders received. Notified pt; reviewed basal bolus regimen and notified of next appt and to call the end of this week to report BG. Pt has DM book at bedside with educator contact info.
[2020-02-08 17:12] LABS: Glucose Point of Care 293 (65-105)
[2020-02-08 20:10] LABS: Glucose Point of Care 275 (65-105)
[2020-02-08] MEDS: INSULIN GLARGINE (*BKC) 100 UNITS/ML 15 UNITS SUB-Q (20:41)
[2020-02-08 22:00] VITALS: BP 136/50; PULSE 71; RESP 18; TEMP 36.7; O2SAT 96
[2020-02-09 06:00] VITALS: BP 143/48; PULSE 66; RESP 19; TEMP 36.6; O2SAT 95
[2020-02-09] MEDS: LEVOTHYROXINE SODIUM 100 MCG, LEVOTHYROXINE SODIUM 75 MCG 175 MCG PO (06:21)
[2020-02-09 06:53] LABS: Glucose Point of Care 191 (65-105)
[2020-02-09] MEDS: INSULIN ASPART (*BKC) 100 UNITS/ML SUB-Q ×3 (08:01→12:06)
[2020-02-09] MEDS: ROSUVASTATIN 10 MG TABLET 20 MG PO (08:05)
[2020-02-09] MEDS: PANTOPRAZOLE 40 MG TABLET PO (08:06)
[2020-02-09] MEDS: ASPIRIN 81 MG CHEWABLE TABLET PO (08:06)
[2020-02-09] MEDS: ESCITALOPRAM OXALATE 10 MG TABLET 20 MG PO (08:06)
[2020-02-09] MEDS: CLOPIDOGREL BISULFATE 75 MG TABLET PO (08:06)
[2020-02-09] MEDS: AMLODIPINE BESYLATE 5 MG TABLET 10 MG PO (08:06)
[2020-02-09] MEDS: FENOFIBRATE NANOCRYSTALLIZED 145 MG TABLET PO (08:06)
[2020-02-09] MEDS: SILVERGEL (ELTA) 45 ML 1 APPLIC TOPICAL (08:07)
[2020-02-09] MEDS: PREGABALIN 25 MG CAPSULE PO (08:09)
--- NOTE | 2020-02-09 09:38 | WPDNEURORHBP ---
Subjective Date/time seen: 02/09/20 09:38 Interval history: A 69-year-old woman who is significantly diabetic and at times poorly controlled with evidence of peripheral neuropathy cervical myelopathy and L4 burst fracture was admitted because of having had pontine stroke which had left her with left-sided weakness from which she has recuperate it quite well and did remarkably well in over rehab program she is ready to be discharged today the insulin has been adjusted according to the coding educator patient will be going home with a follow-up appointments with the industrial electrician journeyman the primary care physician in the follow-up with me in couple of months She denies any headache neck pain chest pain shortness of breath nausea vomiting and she does not really want any kind of surgical maneuver on her cervical spine and or lumbar vertebra Review of Systems Review of Systems: All systems reviewed & are unremarkable except as noted in HPI and below Functional Status Ambulation Ability Ability to Ambulate 10 Feet: Independent Ability to Ambulate 50 Feet With 2 Turns: Independent Ability to Ambulate 150 Feet: Independent Ambulation Assistive Devices: Walker, Rollator Transfers Ability Ability to Transfer In/Out of Chair: Independent Exam Const: General: comfortable and no acute distress HENMT: General nose exam: Normal nares present Mouth: Yes moist mucous membranes Eyes: General: appearance normal, both eyes and all related structures Other: apart from evidence of diabetic retinopathy affecting left side much more so than the right the eye examination is stable and not changed Neck: Neck: supple and no JVD Other: full neck movements without any evidence on clinical grounds or otherwise of radicular component or any pain Resp: Effort & Inspection: normal respiratory effort Auscultation: clear to auscultation bilaterally Cardio: Rate: regular rate Rhythm: regular rhythm GI: GI Palp: Yes Soft to palpation Auscultation: normal bowel sounds Skin: General skin exam: normal color and no rashes or lesions noted Neuro: Other: patient is awake alert has normal speech language functions normal cranial examination except evidence of diabetic retinopathy subtle left-sided facial weakness has significantly improved left-sided hemiparesis along with the evidence of peripheral neuropathy low back pain and equivocal Babinski Extrem: General: normal to inspection Psych: Mental Status: mental status grossly normal Objective Data Vital Signs Vital Signs: Vital Signs - 24 hr 02/08/20 14:00 02/08/20 22:00 02/09/20 06:00 Temperature 36.6 C 36.7 C 36.6 C Pulse Rate 72 71 66 Respiratory Rate 18 18 19 Blood Pressure 130/68 136/50 L 143/48 H Pulse Oximetry 98 96 95 Intake/Output Intake/Output: Intake & Output 02/06/20 02/07/20 02/08/20 02/09/20 23:59 23:59 23:59 23:59 Intake Total 1080 1080 480 240 Balance 1080 1080 480 240 Meds/Results Medications: Active Medications Generic Name Dose Route Start Last Admin Trade Name Freq PRN Reason Stop Dose Admin Acetaminophen 650 mg 01/30/20 06:34 02/01/20 06:34 Tylenol Tablet PO 650 mg Q6H PRN Administration Mild Pain (1-3) or Fever Alprazolam 0.5 mg 01/26/20 15:49 Xanax PO BID PRN Anxiety Amlodipine Besylate 10 mg 01/27/20 09:00 02/09/20 08:06 Norvasc PO 10 mg DAILY DICK Administration Aspirin 81 mg 01/27/20 08:00 02/09/20 08:06 Aspirin Chewable PO 81 mg DAILY@0800 DICK Administration Bisacodyl 5 mg 01/27/20 21:00 02/08/20 20:35 Dulcolax Tab PO Not Given HS DICK Bisacodyl 10 mg 02/04/20 08:16 Dulcolax Suppository RECTAL QAM PRN Constipation Clopidogrel Bisulfate 75 mg 01/27/20 09:00 02/09/20 08:06 Plavix PO 75 mg QAM DICK Administration Dextrose 12.5 gm 01/26/20 15:59 01/28/20 02:10 Dextrose 50% Syringe IV PUSH 12.5 gm PRN PRN Administration Hypoglycemia Protocol
[2020-02-09 11:45] LABS: Glucose Point of Care 233 (65-105)
--- NOTE | 2020-02-11 13:40 | DS_ITS ---
DATE OF DISCHARGE: 02/09/2020 DISCHARGE ACUTE REHAB DIAGNOSES: Stroke with etiological diagnosis of acute right pontine infarction in addition to the comorbid conditions of 1. Diabetes mellitus. 2. Gastroesophageal reflux disease. 3. Hyperlipidemia. 4. Hypertension. 5. Hypothyroidism. 6. Irritable bowel syndrome. 7. Memory dysfunction. 8. Peripheral neuropathy. 9. Sleep apnea. 10. Ventral hernia. 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 She was at [facility] in November 2019 for the head trauma though the scan at this time was not significant. The patient had been on Plavix chronically and has been also taking aspirin, which was discontinued in November subsequent to the fall. She also wears a back brace and has been followed by the Pain Management receiving injection in her hips and the low back. Brain MRI at this particular time documented punctate acute right pontine infarct with a large old right posterior cerebral artery infarct including the basal ganglia lacunar infarct as well. The Doppler study was less than 50% stenosis, right carotid artery. Chest x-ray was negative. MRI documented acute L4 burst fracture with [id number] loss of height and lumbar spinal spondylosis. MRI of the cervical spine revealed moderate central canal stenosis with increased T2-4 signal, which was thought to be secondary to edema. She was found to have pontine stroke in the acute care facility on top of all the previous abnormalities and the previous stroke. She was started on aspirin and Crestor, and at the time of discharge, she was with left-sided hemiparesis, decreased motor control, visual impairment, and trunk instability and gait instability. LEVEL OF FUNCTION AT THE TIME OF ADMISSION: The patient required setup for the eating, supervision for oral hygiene, substantial assistance for toileting, bathing, partial assistance for upper body dressing, substantial assistance for lower body dressing, and partial assistance for the rest of the modalities, except that she was unable to do the 12 steps and required only supervision for picking up the object. ANTICIPATORY REHAB COURSE AT THE TIME OF ADMISSION: Were to make her independent in eating and oral hygiene, require only supervision for toileting and bathing, setup for the upper body dressing, supervision for lower body dressing, set up for the footwear, make her independent in rolling in bed, sit to lying, lying to sit, sit to stand, chair transfer, car transfer, 10 feet walking, 50 feet walking with 2 turns, 150 feet walking and walking 10 feet on uneven surfaces also. Require only supervision for toilet transfer, curb or step, 4 steps and 12 steps. Wheelchair was obviously not applicable. At the time of discharge, she was independent eating, oral hygiene, required supervision for toileting, setup for bathing, upper body dressing, partial assistance for lower body dressing, setup for the footwear, became independent, rolling in bed, sit to lying, lying to sitting, sit to stand, chair transfer, car transfer, 10 feet walking, 50 feet walking with 2 turns, 150 feet walking and even walking 10 feet on uneven surfaces. She required only supervision for toilet transfer, curb or step, 4 steps, but still she was unable to take 12 steps on uneven surfaces, though she became independent picking up the object. HOSPITAL COURSE: During the hospitalization, she was involved actively in physical therapy and occupational therapy on a regular basis. She was seen by
== END 2020-02-09 13:15 | disposition home health service (06) | DRG 57 ==
PROVIDERS: Family Medicine; Admitting Provider Psychiatry & Neurology Neurology; PCP Emergency Medicine; Visit Provider Psychiatry & Neurology Neurology
DX: I69.354 Hemiplegia and hemiparesis following cerebral infarction affecting left non-dominant side (principal); G95.29 Other cord compression; S32.041D Stable burst fracture of fourth lumbar vertebra, subsequent encounter for fracture with routine healing; E11.319 Type 2 diabetes mellitus with unspecified diabetic retinopathy without macular edema; E11.42 Type 2 diabetes mellitus with diabetic polyneuropathy; E78.5 Hyperlipidemia, unspecified; E11.649 Type 2 diabetes mellitus with hypoglycemia without coma; E11.65 Type 2 diabetes mellitus with hyperglycemia; E03.9 Hypothyroidism, unspecified; H54.7 Unspecified visual loss; I10 Essential (primary) hypertension; I48.91 Unspecified atrial fibrillation; G47.30 Sleep apnea, unspecified; I95.9 Hypotension, unspecified; I25.10 Atherosclerotic heart disease of native coronary artery without angina pectoris; K58.0 Irritable bowel syndrome with diarrhea; K74.60 Unspecified cirrhosis of liver; M48.02 Spinal stenosis, cervical region; M47.816 Spondylosis without myelopathy or radiculopathy, lumbar region; R60.9 Edema, unspecified; R29.6 Repeated falls; R79.89 Other specified abnormal findings of blood chemistry; Z87.891 Personal history of nicotine dependence; Z86.73 Personal history of transient ischemic attack (TIA), and cerebral infarction without residual deficits; Z79.02 Long term (current) use of antithrombotics/antiplatelets; Z79.4 Long term (current) use of insulin; S76.012D Strain of muscle, fascia and tendon of left hip, subsequent encounter; Z79.82 Long term (current) use of aspirin
CPT/HCPCS: 36415; 80048; 80061; 83036; 85025; 85027; 92522; 97110; 97112; 97116; 97162; 97167; 97530; 97535; A9270; J1610; J1815

== ENCOUNTER 2020-04-06 15:07 | Outpatient (CLI) | payer MEDICARE, MEDICAID, SELFPAY ==
--- NOTE | ~2020-04-06 | MR_ITS ---
EXAMINATION: MR cervical spine wo con DATE: 04/06/2020 17:01 INDICATION: Cervicalgia TECHNIQUE: Magnetic resonance imaging (MRI) of the cervical spine was performed without intravenous c ontrast. Sequences included sagittal T2-weighted FSE, sagittal T2-weighted FS FSE, sagittal T1-weight ed FSE, axial MERGE and axial T2-weighted FSE. COMPARISON: 01/22/2020 FINDINGS: Straightening of the normal cervical lordosis. Vertebral body heights are normal. Moderate disc heig ht loss at C4-C5, C5-C6 and C6-C7 with prior to fatty endplate changes at both sides of the C6-C7 dis c space. T1 hyperintense hemangioma at T3. Marrow signal is otherwise normal. No interval change in f ocal increased central cord signal extending approximately 1 cm craniocaudally at the level of C4-C5. Small old lacunar infarct at the right side of the moe. Encephalomalacia in the right occipital lob e consistent with chronic infarct. The following disc levels are specifically discussed: C2-C3: The disc does not extend beyond the endplate margin. There is mild right uncovertebral joint o steoarthritis. There is mild bilateral facet joint osteoarthritis. There is no neural foraminal steno sis. There is no central canal stenosis. C3-C4: The disc does not extend beyond the endplate margin. There is mild bilateral uncovertebral cliff nt osteoarthritis. There is mild bilateral facet joint osteoarthritis. There is minimal right neural foraminal stenosis. There is no central canal stenosis. C4-C5: Disc is bulging. There is severe right and moderate left uncovertebral joint osteoarthritis. T here is mild bilateral facet joint osteoarthritis. There is moderate left and moderate to severe righ t neural foraminal stenosis. There is moderate central canal stenosis measuring 6 mm AP in the mid sa gittal plane. There is deformation and cross-sectional area loss of the cord which indents along the ventral surface more prominent on the left. There is associated increased cord signal both to the lef t and right of midline. C5-C6: Disc is bulging. There is severe left and moderate right uncovertebral joint osteoarthritis. T here is mild bilateral facet joint osteoarthritis. There is moderate right and mild to moderate left neural foraminal stenosis. There is moderate left-sided predominant central canal stenosis which lit ures 7 mm AP in the mid sagittal plane with indention of the left ventral surface of the cord. C6-C7: Disc is mildly bulging. There is severe left and moderate to severe right uncovertebral joint osteoarthritis. There is mild bilateral facet joint osteoarthritis. There is moderate bilateral, righ t greater than left, neural foraminal stenosis. There is mild central canal stenosis measuring 9-10 m m AP in the mid sagittal plane with flattening of the right ventral surface of the cord. C7-T1: The disc does not extend beyond the endplate margin. There is mild bilateral uncovertebral cliff nt osteoarthritis. There is mild to moderate bilateral facet joint osteoarthritis. There is mild righ t neural foraminal stenosis. There is no central canal stenosis. IMPRESSION: 1. No significant interval change in moderate cervical spondylosis most notable for unchanged small r egion of increased cord T2 signal at C4-C5 where there is moderate central canal stenosis with decrea se cross-sectional area of the cord which favors myelomalacia. Reviewed, dictated and finalized at location A. IMPRESSION: 1. No significant interval change in moderate cervical spondylosis most notable for unchanged small region of increased cord T2 signal at C4-C5 where there is moderate central canal stenosis with decrease cross-sectional area of the cord which favors myelomalacia.
--- NOTE | ~2020-04-06 | MR_ITS ---
EXAMINATION: MR lumbar spine wo con DATE: 04/06/2020 17:01 INDICATION: Lumbar spondylosis TECHNIQUE: Magnetic resonance imaging (MRI) of the lumbar spine was performed without intravenous con trast. Sequences included sagittal T2-weighted FSE, sagittal T2-weighted FS FSE, sagittal T1-weighted FSE, and axial T2-weighted FSE. COMPARISON: 01/22/2020 FINDINGS: Alignment is normal. Again seen is marrow edema throughout the L4 vertebral body where there is a com pression fracture along the anterosuperior portion of the vertebral body with unchanged up to 40% max imal height loss at the anterior half of the vertebral body. Unchanged chronic mild anterior wedging at T11 with 20% anterior vertebral body height loss and with normal marrow signal. There are few Schm orl's nodes along the endplates in the lower thoracic spine as well as at both sides of the L2-L3 dis c space. Vertebral body heights are otherwise normal. There is likely osteoarthritis related marrow e gina at the bilateral lower lumbar facet joints most prominent at L3-L4. T1 hyperintense hemangioma a t S1. Mild disc height loss at T10-T11, T11-T12, L1-L2, L2-L3 and L4-L5. The conus medullaris termina agnes at T12-L1. There is normal signal in the caudal spinal cord. T2 hyperintense bilateral renal cyst s the largest on the left measuring 3.0 cm. Paravertebral soft tissues are unremarkable. The followin g disc levels are specifically discussed: T12-L1: Disc is minimally bulging. There is mild bilateral facet joint osteoarthritis. There is no ne ural foraminal stenosis. There is no central canal stenosis. L1-L2: Moderate diffuse disc bulge. There is mild bilateral facet joint osteoarthritis. There is mild bilateral neural foraminal stenosis. There is mild central canal stenosis. L2-L3: Moderate diffuse disc bulge. There is mild bilateral facet joint osteoarthritis. There is mode rate bilateral neural foraminal stenosis. There is mild to moderate central canal stenosis. L3-L4: Disc is mildly bulging with superimposed bilateral foraminal zone disc protrusions. There is h ypertrophy of the ligamentum flavum. There is moderate bilateral facet joint osteoarthritis. There is moderate left and moderate to severe right neural foraminal stenosis. There is moderate central leon l stenosis. L4-L5: Disc is mildly bulging. There is severe bilateral facet joint osteoarthritis. There is moderat e left and mild to moderate right neural foraminal stenosis. There is mild central canal stenosis. L5-S1: The disc does not extend beyond the endplate margin. There is moderate right and severe left f acet joint osteoarthritis. There is mild neural foraminal stenosis. There is no central canal stenosi s. IMPRESSION: 1. Persistent prominent marrow edema at L4 associate with a subacute L4 compression fracture. 2. Moderate lumbar spondylosis. Reviewed, dictated and finalized at location A. IMPRESSION: 1. Persistent prominent marrow edema at L4 associate with a subacute L4 baylee marco antonio fracture. 2. Moderate lumbar spondylosis.
== END 2020-04-06 15:08 | disposition home or self-care (01) ==
PROVIDERS: PCP Emergency Medicine; Visit Provider Nurse Practitioner Family
DX: M54.2 Cervicalgia (principal); M47.816 Spondylosis without myelopathy or radiculopathy, lumbar region; M79.89 Other specified soft tissue disorders; M47.812 Spondylosis without myelopathy or radiculopathy, cervical region
CPT/HCPCS: 72141; 72148

== ENCOUNTER 2020-05-05 16:21 | Emergency (ER) | payer MEDICARE, MEDICAID, SELFPAY ==
--- NOTE | ~2020-05-05 | CT_ITS ---
EXAMINATION: CT abdomen pelvis w con DATE: 05/05/2020 18:25 INDICATION: Abdominal pain and diarrhea TECHNIQUE: Computed tomography (CT) of the abdomen and pelvis was performed with 100 mL Omnipaque-350 intravenous contrast. Automated exposure control and iterative reconstruction technique were employe d. The dose-length product was 810.33 mGy-cm. COMPARISON: 11/30/2019 FINDINGS: Mild dependent atelectasis in the bilateral lower lobes. Cardiomegaly. No pericardial or pleural effu marco antonio. Small sliding-type hiatal hernia. Again seen is subtle liver surface nodularity suggestive of c irrhosis. Gallbladder is not visualized suggesting prior cholecystectomy. Spleen, pancreas and bilate ral adrenal glands are normal. Bilateral renal cysts, the largest measuring 3.0 cm the left kidney. T he appendix is not visualized. No pericecal inflammatory change to suggest acute appendicitis. Again seen are nonobstructed loops of small bowel extending into a large [place] lower pelvic midline her poncho. There is also a small fat-containing umbilical hernia. Colon is unremarkable. The uterus is not identified and has likely been surgically resected. Bladder is normal. No free intraperitoneal gas or fluid. No pathologically enlarged abdominal or pelvic lymphadenopathy. There is calcified atheroscle rosis of the normal caliber abdominal aorta and many of the other arteries. Relatively recent-appeari ng L4 burst fracture with one third vertebral body height loss and 4 mm retropulsion. IMPRESSION: 1. Relatively recent-appearing L4 burst fracture. 2. No other acute intra-abdominal/pelvic process. 3. Nodular liver surface suggestive of cirrhosis. 4. Nonobstructed loops of small bowel extending to a chronic large lower pelvic midline hernia. 5. Cardiomegaly. 6. Small sliding-type hiatal hernia. Reviewed, dictated and finalized at location A.
[2020-05-05 16:26] VITALS: BP 204/76; PULSE 75; RESP 18; TEMP 36.9; O2SAT 99
--- NOTE | 2020-05-05 16:35 | ED.GENADULT ---
HPI - General Adult General Chief complaint: Nausea/Vomiting/Diarrhea Stated complaint: diarrhea x 6 days Time Seen by Provider: 05/05/20 16:24 Source: RN notes reviewed History of Present Illness HPI narrative: Patient presents emergency department from home for diarrhea. Patient states has had 8 episodes of diarrhea since last night and has had diarrhea for the past 6 days. She has been associated with abdominal pain on the right upper lower abdomen described as cramping. Patient states she has a history of colitis and called Dr. Persaud's office was recommended come to the ED for further evaluation. Denies any fevers or chills vomiting or any other symptoms Related Data Home Medications Medication Instructions Recorded Confirmed dapagliflozin 5 mg tablet 5 mg PO QAM 03/17/20 03/17/20 Allergies Allergy/AdvReac Type Severity Reaction Status Date / Time Cephalosporins Allergy Mild Rash Verified 05/05/20 16:33 phenylephrine Allergy Mild Unknown Verified 05/05/20 16:33 pyrilamine Allergy Mild Unknown Verified 05/05/20 16:33 adhesive tape Allergy Unknown Rash Verified 05/05/20 16:33 atorvastatin Allergy Unknown Muscle Unverified 05/05/20 16:33 Spasms,Muscle Spasms cefaclor Allergy Unknown Dyspnea / Unverified 05/05/20 16:33 SOB,Unknown chlorpheniramine Allergy Unknown Dyspnea / Unverified 05/05/20 16:33 SOB,Unknown erythromycin base Allergy Unknown Rash,Unknow Unverified 05/05/20 16:33 n Penicillins Allergy Unknown Rash,Unknow Unverified 05/05/20 16:33 n Sulfa (Sulfonamide Allergy Unknown Rash,Unknow Unverified 05/05/20 16:33 Antibiotics) n AZATADINE MALEATE Allergy Unknown Dyspnea / Uncoded 05/05/20 16:33 SOB CHLORPHENIRAMINE TANNATE Allergy Unknown Dyspnea / Uncoded 05/05/20 16:33 SOB METOCLOPRAMIDE HCL Allergy Unknown Palpitation Uncoded 05/05/20 16:33 s PHENYLEPHRINE TANNATE Allergy Unknown Dyspnea / Uncoded 05/05/20 16:33 SOB PSEUDOEPHEDRINE SULFATE Allergy Unknown Dyspnea / Uncoded 05/05/20 16:33 SOB PYRILAMINE TANNATE Allergy Unknown Dyspnea / Uncoded 05/05/20 16:33 SOB SURGICAL TAPE Allergy Unknown Not Uncoded 05/05/20 16:33 Entered,BLISTERS Review of Systems Review of Systems: Narrative: Gen.: Denies fevers or chills ENT: Denies congestion Respiratory: Denies shortness of breath or cough CV: Denies chest pain or palpitations GI: See HPI denies burning, urgency, frequency or hematuria Musculoskeletal: Denies back pain or muscle pain Neuro: Denies numbness, tingling, weakness or focal weakness Skin: Denies rash Except as documented, all other systems reviewed and negative PMFSH Past Medical History Medical History A-fib Patient stated that she had 1 run of it but no longer is in AFib. She is not being treated for it. Aneurysm Brain s/p coiling x2 Anxiety Arthritis Asthma Bronchitis CAD (coronary artery disease) pateint states LHC was clear Carpal tunnel syndrome Chronic colitis Depression Diabetes type 2, controlled Falls frequently Fibromyalgia GERD (gastroesophageal reflux disease) History of CVA (cerebrovascular accident) 2012 and 2015 HLD (hyperlipidemia) HTN (hypertension) Hypothyroidism IBS (irritable bowel syndrome) Memory problem Peripheral neuropathy Pneumonia Sleep apnea UTI (urinary tract infection) Ventral hernia Social History Social History Social History: Lives home with her , daughter and daughter's fiance. Quit smoking over 50 years ago. She smoked a pack a day for about 2-3 years. No alcohol or drug use. She is a full code. She nominated her daughter Casimiro to be the individual who would make medical decisions for her if she is not able. 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
[2020-05-05 17:02] LABS: Basophils Absolute Auto 0.1 K/mm3 (0.0-0.1); Basophils Percent Auto 0.9 % (0.2-1.2); Eosinophils Absolute Auto 0.1 K/mm3 (0-0.3); Eosinophils Percent Auto 1.1 % (0-4.4); Hematocrit 42.2 % (37.0-47.0); Hemoglobin 13.1 g/dL (12.0-15.0); Immature Granulocyte Absolute 0.03 K/mm3 (0.00-0.031); Immature Granulocyte Percent A 0.3 % (0-0.5); Lymphocytes Absolute Auto 2.15 K/mm3 (0.9-3.2); Lymphocytes Percent Auto 21.7 % (18.3-44.2); Mean Corpuscular Hemoglobin 25.6 pg (26-34); Mean Corpuscular Volume 82.4 fl (80-100); Mean Platelet Volume 11.4 fl (7.4-10.4); Monocytes Absolute Auto 0.5 K/mm3 (0.1-0.6); Monocytes Percent Auto 5.2 % (2.6-8.5); Neutrophils Percent Auto 70.8 % (45.5-73.1); Platelet Count Result 279 k/mm3 (150-375); Red Blood Count 5.12 M/mm3 (4.2-5.4); Red Cell Distribution Width 13.2 % (11.5-14.5); White Blood Count 9.9 K/mm3 (4.5-10.0)
[2020-05-05] MEDS: SODIUM CHLORIDE 0.9% IV 1,000 ML 999 ML IV CONT (17:02)
[2020-05-05 17:12] LABS: Partial Thromboplastin Time 27.2 SECONDS (22.3-36.8); Prothrombin Time 12.9 Seconds (11.1-14.7)
[2020-05-05 17:13] LABS: Lactic Acid Reflex 1.9 mmol/L (0.7-2.1)
[2020-05-05 17:54] LABS: Alanine Aminotransferase 10 U/L (4-35); Albumin Level 3.5 g/dL (3.5-5.1); Alkaline Phosphatase 59 U/L (38-126); Aspartate Amino Transferase 17 U/L (14-36); Bilirubin,Total < 0.1 mg/dL (0.2-1.3); Blood Urea Nitrogen 14 mg/dL (7-17); Calcium 9.2 mg/dL (8.4-10.2); Carbon Dioxide 29 mmol/L (22-30); Chloride 101 mmol/L (98-107); Estimated CRCL calculation 57 ml/min; Estimated Glomerular Filt Rate > 60; Glucose 317 mg/dL (65-105); Sodium 135 mmol/L (137-145)
[2020-05-05 18:38] VITALS: BP 157/64; PULSE 80; RESP 14; TEMP 37.1; O2SAT 98
[2020-05-05 19:18] LABS: Glucose Point of Care 206 (65-105)
== END 2020-05-05 19:25 | disposition home or self-care (01) ==
PROVIDERS: Emergency Provider Emergency Medicine; PCP Emergency Medicine
DX: R19.7 Diarrhea, unspecified (principal); J45.909 Unspecified asthma, uncomplicated; I25.10 Atherosclerotic heart disease of native coronary artery without angina pectoris; K21.9 Gastro-esophageal reflux disease without esophagitis; M79.7 Fibromyalgia; I10 Essential (primary) hypertension; E78.5 Hyperlipidemia, unspecified; E03.9 Hypothyroidism, unspecified; K58.9 Irritable bowel syndrome, unspecified; G47.30 Sleep apnea, unspecified; E11.42 Type 2 diabetes mellitus with diabetic polyneuropathy; M19.90 Unspecified osteoarthritis, unspecified site; Z86.73 Personal history of transient ischemic attack (TIA), and cerebral infarction without residual deficits; Z87.891 Personal history of nicotine dependence; Z87.440 Personal history of urinary (tract) infections; Z79.4 Long term (current) use of insulin; R10.31 Right lower quadrant pain
CPT/HCPCS: 36415; 74177; 80053; 82948; 83605; 85025; 85610; 85730; 96365; 99284; J0131; J7030; Q9967

== ENCOUNTER 2020-05-21 17:57 | Emergency (ER) | payer MEDICARE, MEDICAID, SELFPAY ==
[2020-05-21] VITALS (12 sets, daily range): BP systolic 97–170; BP diastolic 61–103; PULSE 72–80; RESP 14–22; TEMP 36.6; O2SAT 95–99
--- NOTE | ~2020-05-21 | XR_ITS ---
XR hip LT min 3V w AP pelvis DATE: 05/21/2020 19:16 INDICATION: Fall. Left hip pain. TECHNIQUE: AP pelvis. AP, lateral and crosstable lateral views of left hip COMPARISON: None FINDINGS: No pelvic fracture or bone destruction. The pubic symphysis and sacroiliac joints are intac t. Hip joint spaces are symmetric and well preserved. No left hip fracture or dislocation, avascular necrosis or bone destruction. Atherosclerotic calcification of the iliac and femoral arteries. IMPRESSION: No pelvic or left hip fracture is detected Reviewed, dictated and finalized at location A.
--- NOTE | ~2020-05-21 | XR_ITS ---
XR ribs LT 2V w CXR 2V DATE: 05/21/2020 19:16 INDICATION: Fall. Pain under left breast. TECHNIQUE: AP and lateral chest. 3 views of the left ribs. COMPARISON: 01/20/2022 view chest FINDINGS: Normal heart size. There is aortic arch calcification. No hilar or mediastinal enlargement. No pulmonary infiltrate or consolidation, pleural effusion or pulmonary vascular congestion or pneum othorax. Diffuse osteopenia. No left rib fracture is evident. Degenerative spurring of the thoracic and lumbar spine. IMPRESSION: No rib fracture is detected No active cardiopulmonary disease Diffuse osteopenia Reviewed, dictated and finalized at location A.
--- NOTE | ~2020-05-21 | CT_ITS ---
EXAMINATION: CT brain wo con DATE: 05/21/2020 18:49 INDICATION: Fall. Struck in the head. Patient on blood thinners. History of aneurysm. TECHNIQUE: Computed tomography (CT) of the head was performed without intravenous contrast. The mA wa s adjusted according to patient size. Iterative reconstruction technique was employed. Exam dose: 60 5.33 mGy-cm total exam DLP. COMPARISON: 01/22/2020 MRI brain/ CT brain FINDINGS: Again noted are aneurysm clips in the right supraclinoid area; history of prior aneurysm. T here is chronic infarct/encephalomalacia in the right temporal occipital area.. Chronic right basal g anglia lacunar infarct. There is nonspecific diminished attenuation of the cerebral white matter, likely due to chronic small vessel ischemic changes. No intracranial mass lesion or hemorrhage or recent cerebrovascular accident, midline shift or mass e ffect is evident. No subdural or epidural hematoma. Bilateral hyperostosis frontalis interna, not of clinical significance. No skull fracture or bone jaqueline truction. The mastoid air cells and included paranasal sinuses are normally developed and aerated. IMPRESSION: No acute intracranial finding or skull fracture Reviewed, dictated and finalized at Location A. Reviewed, dictated and finalized at location A.
--- NOTE | 2020-05-21 18:39 | ED.FALL ---
HPI - Fall General Chief Complaint: Fall Stated Complaint: fall yesterday Time Seen by Provider: 05/21/20 18:11 Source: patient and family History of Present Illness HPI Narrative: 69 years old white female with multiple medical disorders including diabetes and peripheral neuropathy and multiple falls. Patient had MRI recently of the cervical spine, thoracic and lumbar spine and found that she have some bulging disc in the cervical spine and L4 fracture. Patient scheduled for cervical fusion at the end of this month. Patient had a fall 1 week ago and 2 falls yesterday. Patient was told by her neurologist that her frequent fall because of her peripheral neuropathy. Patient denies any head pain, neck pain or back pain different than before. Her only complaint right now left ribs left hip pain. Patient reports something fell on her head yesterday after the fall., Without loss of consciousness. Patient been to pain management clinic. History of CVA on January 2020. Patient denies any fever, chills, nausea, vomiting, chest pain, shortness of breath, urinary symptoms. Related Data Home Medications Medication Instructions Recorded Confirmed dapagliflozin [Farxiga] 10 mg PO DAILY 05/21/20 pregabalin [Lyrica] 50 mg PO TID 05/21/20 Allergies Allergy/AdvReac Type Severity Reaction Status Date / Time Cephalosporins Allergy Mild Rash Verified 05/21/20 18:52 phenylephrine Allergy Mild Unknown Verified 05/21/20 18:52 pyrilamine Allergy Mild Unknown Verified 05/21/20 18:52 adhesive tape Allergy Unknown Rash Verified 05/21/20 18:52 atorvastatin Allergy Unknown Muscle Verified 05/21/20 18:52 Spasms,Muscle Spasms cefaclor Allergy Unknown Dyspnea / Verified 05/21/20 18:52 SOB,Unknown chlorpheniramine Allergy Unknown Dyspnea / Verified 05/21/20 18:52 SOB,Unknown erythromycin base Allergy Unknown Rash,Unknow Verified 05/21/20 18:52 n Penicillins Allergy Unknown Rash,Unknow Verified 05/21/20 18:52 n Sulfa (Sulfonamide Allergy Unknown Rash,Unknow Verified 05/21/20 18:52 Antibiotics) n AZATADINE MALEATE Allergy Unknown Dyspnea / Uncoded 05/21/20 18:06 SOB CHLORPHENIRAMINE TANNATE Allergy Unknown Dyspnea / Uncoded 05/21/20 18:06 SOB METOCLOPRAMIDE HCL Allergy Unknown Palpitation Uncoded 05/21/20 18:06 s PHENYLEPHRINE TANNATE Allergy Unknown Dyspnea / Uncoded 05/21/20 18:06 SOB PSEUDOEPHEDRINE SULFATE Allergy Unknown Dyspnea / Uncoded 05/21/20 18:06 SOB PYRILAMINE TANNATE Allergy Unknown Dyspnea / Uncoded 05/21/20 18:06 SOB SURGICAL TAPE Allergy Unknown Not Uncoded 05/21/20 18:06 Entered,BLISTERS PMFSH Social History Social History Social History: Lives home with her , daughter and daughter's fiance. Quit smoking over 50 years ago. She smoked a pack a day for about 2-3 years. No alcohol or drug use. She is a full code. She nominated her daughter Casimiro to be the individual who would make medical decisions for her if she is not able. 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 smoker Tobacco type: cigarettes Alcohol intake: never Substance use: never Substance use type: does not use Gender identity (if verbalized by the patient): Female Spiritual care concerns: No Agree to blood products: Yes Course Vital Signs Vital signs: Vital Signs Temperature 36.6 C 05/21/20 18:01 Pulse Rate 80 05/21/20 18:01 Respiratory Rate 20 05/21/20 18:01 Blood Pressure 148/68 H 05/21/20 18:01 Pulse Oximetry 98 05/21/20 18:01 Temperature 36.6 C 05/21/20 18:01 Pulse Rate 80 05/21/20 19:31 Respiratory Rate 19 05/21/20 19:31 Blood Pressure 97/85 L 05/21/20 19:31 Pulse Oximetry 95 05/21/20 19:31 MDM - Fall Lab Data Result diagrams: 05/21/20 19:20 05/21/20 19:20 Labs: Lab Results 05/21/20 05/21/20 05/21/20 Range/Units 19:20 19:20 19:
[2020-05-21] MEDS: MORPHINE SULFATE 4 MG/ML INJ IV PUSH (19:17)
[2020-05-21] MEDS: ONDANSETRON INJ 4 MG/2 ML VIAL IV PUSH (19:17)
--- NOTE | 2020-05-21 19:17 | PC.NURSE ---
Report received from VONDA Issa. Assumed care of patient at this time.
[2020-05-21 19:25] LABS: Basophils Absolute Auto 0.1 K/mm3 (0.0-0.1); Basophils Percent Auto 1.1 % (0.2-1.2); Eosinophils Absolute Auto 0.1 K/mm3 (0-0.3); Eosinophils Percent Auto 1.1 % (0-4.4); Hematocrit 37.9 % (37.0-47.0); Hemoglobin 11.7 g/dL (12.0-15.0); Immature Granulocyte Absolute 0.02 K/mm3 (0.00-0.031); Immature Granulocyte Percent A 0.2 % (0-0.5); Lymphocytes Absolute Auto 2.06 K/mm3 (0.9-3.2); Mean Corpuscular HGB Conc 30.9 g/dl (32-36); Mean Corpuscular Hemoglobin 25.4 pg (26-34); Mean Corpuscular Volume 82.2 fl (80-100); Monocytes Absolute Auto 0.5 K/mm3 (0.1-0.6); Monocytes Percent Auto 6.3 % (2.6-8.5); Neutrophils Absolute Auto 5.5 K/mm3 (1.3-6.7); Neutrophils Percent Auto 66.3 % (45.5-73.1); Platelet Count Result 240 k/mm3 (150-375); Red Blood Count 4.61 M/mm3 (4.2-5.4); Red Cell Distribution Width 13.7 % (11.5-14.5); White Blood Count 8.2 K/mm3 (4.5-10.0)
[2020-05-21 19:37] LABS: Alanine Aminotransferase 12 U/L (4-35); Alkaline Phosphatase 59 U/L (38-126); Aspartate Amino Transferase 23 U/L (14-36); Bilirubin,Total 0.3 mg/dL (0.2-1.3); Blood Urea Nitrogen 27 mg/dL (7-17); Calcium 9.5 mg/dL (8.4-10.2); Carbon Dioxide 28 mmol/L (22-30); Chloride 101 mmol/L (98-107); Estimated CRCL calculation 41 ml/min; Estimated Glomerular Filt Rate 49; Glucose 231 mg/dL (65-105); Potassium 4.4 mmol/L (3.4-5.0); Sodium 136 mmol/L (137-145)
[2020-05-21 19:55] LABS: Add Urine Microscopic? YES; Appearance Urine Clear (Clear); Bacteria Urine Trace /hpf; Bilirubin Urine Negative (Negative); Blood Urine Negative (Negative); Color Urine Yellow (Yellow); Glucose Urine UA 3+ mg/dL (Negative); Ketones Urine Negative (Negative); Leukocyte Esterase Ur Trace LEU/UL (Negative); Mucus Urine Rare /lpf; Nitrate Urine Negative (Negative); Protein Urine 1+ mg/dL (Negative); Renal Epithelial Cells Urine Rare /hpf (None Seen); Squamous Epithelial Cell Urine Occasional /hpf (Few); Urobilinogen Urine Negative mg/dL (<2.0)
[2020-05-21 19:56] LABS: Budding Yeast Urine Present /hpf
== END 2020-05-21 20:39 | disposition home or self-care (01) ==
PROVIDERS: Emergency Provider Emergency Medicine; PCP Emergency Medicine
DX: S20.212A Contusion of left front wall of thorax, initial encounter (principal); E86.0 Dehydration; R29.6 Repeated falls; M50.20 Other cervical disc displacement, unspecified cervical region; E11.42 Type 2 diabetes mellitus with diabetic polyneuropathy; Z87.891 Personal history of nicotine dependence; R82.998 Other abnormal findings in urine; W19.XXXA Unspecified fall, initial encounter
CPT/HCPCS: 36415; 51701; 70450; 71046; 71100; 73502; 80053; 81001; 85025; 87086; 96374; 96375; 99284; J2270; J2405

== ENCOUNTER 2020-06-24 07:33 | Outpatient (CLI) | payer MEDICARE, MEDICAID, SELFPAY ==
--- NOTE | ~2020-06-24 | NM_ITS ---
EXAMINATION: NM bereket stress w perfusion DATE: 06/24/2020 11:53 INDICATION: Dyspnea TECHNIQUE: Rest images were obtained following intravenous administration of 12.1 mCi Tc99m tetrofosm in (Myoview). The patient was infused intravenously with Lexiscan (Regadenoson). Then, 33.3 mCi Tc99m tetrofosmin (Myoview) was administered intravenously, and stress images were obtained. Data was lj nstructed into short axis and horizontal and vertical long axis SPECT images. Gated SPECT images were also obtained. COMPARISON: None. FINDINGS: There is no definite reversible or fixed perfusion abnormality to suggest ischemia or infar ction. There is normal left ventricular chamber size, wall motion and ejection fraction. Left ventr icular ejection fraction measures >70%. IMPRESSION: 1. Normal myocardial perfusion at rest and during stress. 2. Left ventricular ejection fraction measuring >70%. Reviewed, dictated and finalized at location A.
--- NOTE | 2020-06-24 07:45 | EST_ITS ---
Patient Info Name: Tamiko Leija Age: 70 years : 1950 Gender: Female Ht: 61 in Wt: 184 lbs BSA: 1.93 m2 HR: 74 bpm BP: 145 / 65 mmHg Heart Rhythm: Sinus Rhythm Exam Date: 06/24/2020 9:23 AM Exam Location: [facility] Stress Patient Status: Outpatient Admit Date: 06/24/2020 Staff Ordering Physician: Moises Cuello DO Attending Provider: Moises Cuello DO Exercise Technologist: Antonieta Melgar RDCS Exercise Physician: Moises Cuello DO Exam Type: CA stress bereket w NM Study Info Indications R06.00 - Dyspnea, unspecified A regadenoson stress test was performed. Summary 1. 1. Negative lexiscan stress test for ischemic ST changes by ECG criteria. 2. 2. Baseline hypertension. 3. 3. Nuclear scan to follow and will be reported separately. Please correlate with it. 4. 4. Patient informed of the above results. Protocol: Lexiscan Stress ECG Details Stage: REST Duration (min): 1 min : 2 sec HR (bpm): 74 SBP (mmHg): 145 DBP (mmHg): 65 Stage: REST Duration (min): 9 min : 29 sec HR (bpm): 75 SBP (mmHg): 145 DBP (mmHg): 65 Stage: STAGE 1 Duration (min): 1 min : 0 sec HR (bpm): 85 SBP (mmHg): 162 DBP (mmHg): 55 Stage: RECOVERY Duration (min): 1 min : 0 sec HR (bpm): 86 SBP (mmHg): 157 DBP (mmHg): 53 Stage: RECOVERY Duration (min): 2 min : 0 sec HR (bpm): 82 SBP (mmHg): 157 DBP (mmHg): 53 Stage: RECOVERY Duration (min): 3 min : 0 sec HR (bpm): 85 SBP (mmHg): 141 DBP (mmHg): 54 Stage: RECOVERY Duration (min): 3 min : 6 sec HR (bpm): 84 SBP (mmHg): 141 DBP (mmHg): 54 Rest HR: 75 bpm Peak HR: 87 bpm Rest Sys BP: 145 mmHg Peak Sys BP: 162 mmHg Max Pred HR: 149 bpm % Max Pred HR: 58 % Target HR: 127 bpm Max RPP: 14,094 bpm*mmHg Termination Reason: Completed protocol Cardiac Symptoms: Headache, tingling in arms Total Time: 1 min : 0 sec Rest Powers BP: 65 mmHg Peak Powers BP: 55 mmHg Total Dose: 0.4 mg Resting ECG Ectopic atrial rhythm. Stress ECG No ST changes. Arrhythmias None. Report Signatures
== END 2020-06-24 07:34 | disposition home or self-care (01) ==
PROVIDERS: PCP Emergency Medicine; Visit Provider Internal Medicine Cardiovascular Disease
DX: R06.00 Dyspnea, unspecified (principal); J84.9 Interstitial pulmonary disease, unspecified
CPT/HCPCS: 78452; 93017; A9502; J2785

== ENCOUNTER 2020-06-27 14:33 | Outpatient (CLI) | payer MEDICARE, MEDICAID, SELFPAY | END 2020-06-27 14:34 | disposition home or self-care (01) | PROVIDERS: PCP Emergency Medicine; Visit Provider Emergency Medicine | DX: Z01.818 Encounter for other preprocedural examination (principal) | CPT/HCPCS: 87081 ==

== ENCOUNTER 2020-08-15 08:51 | Emergency (ER) | payer MEDICARE, MEDICAID, SELFPAY ==
[2020-08-15] VITALS (22 sets, daily range): BP systolic 126–179; BP diastolic 51–94; PULSE 62–87; RESP 14–26; TEMP 36.7; O2SAT 93–100
--- NOTE | ~2020-08-15 | CT_ITS ---
EXAMINATION: CT abdomen pelvis w con EXAM DATE: 08/15/2020 10:03 INDICATION: Diarrhea and abdominal pain. History of colitis. TECHNIQUE: Spiral CT of the abdomen and pelvis was performed following intravenous injection of 100 m L Omnipaque 350. Axial, coronal and sagittal images were reviewed. The dose-length product (DLP) fo r this examination was 832.25 mGy-cm. The exposure was tailored according to patient size (auto mA e xposure control), and iterative reconstruction (ASIR) was used as additional dose reduction technique . There is no prior study for comparison. FINDINGS: Mildly nodular liver contour suspicious for cirrhosis. Spleen is normal in size. Pancreas, adrenal glands are unremarkable. Gallbladder is unremarkable. No biliary obstruction. Portal and s plenic veins are patent. Kidneys enhance symmetrically. There is no hydronephrosis. Multiple renal lesions bilaterally, most likely cysts up to 3 cm on the left. The uterus is not identified and has likely been surgically resected. The bladder is unremarkable. There is no retroperitoneal or pelvic lymphadenopathy. There is mild scattered arteriosclerotic disease. Infraumbilical hernia containin g nonobstructed small bowel loops. There is small umbilical fat-containing hernia. The appendix is not positively visualized. There is no pericecal inflammatory change to suggest appe ndicitis. The stomach and small bowel are unremarkable. There is colonic fluid, correlate for diarr hea. No free intraperitoneal gas. The heart is normal in size. There are no pericardial or pleur al effusions. The lung bases are unremarkable. There is mild to moderate chronic appearing L4 burst fracture with about 3 mm retrolisthesis, more sclerosis than on prior study, reparative response. IMPRESSION: 1. Colonic fluid, correlate for diarrhea. Could be enteritis. No colonic wall edema. 2. Infraumbilical hernia containing nonobstructed small bowel. 3. Nodular liver, suspicious for cirrhosis. Reviewed, dictated and finalized at location A.
--- NOTE | 2020-08-15 09:10 | ED.NAVMDI ---
HPI - Nausea/Vomiting/Diarrhea General Chief complaint: Nausea/Vomiting/Diarrhea <Riya Orlando PA-C - Last Filed: 08/15/20 13:53> Stated complaint: severe diahrrea <MARY KATE Cabrera Last Filed: 08/15/20 13:53> Time Seen by Provider: 08/15/20 09:10 <MARY KATE Cabrera Last Filed: 08/15/20 13:53> Source: patient <MARY KATE Cabrera Last Filed: 08/15/20 13:53> Mode of arrival: ambulatory <MARY KATE Cabrera Last Filed: 08/15/20 13:53> Limitations: no limitations <MARYK ATE Cabrera Last Filed: 08/15/20 13:53> History of Present Illness HPI Narrative: This is a 70-year-old female that presents emergency department for intermittent diarrhea for the last 5 days. Reports last night she had several episodes of diarrhea which concerned her and prompted her to be seen. Reports the diarrhea is watery. Has some lower abdominal cramping. Has history of chronic problems with diarrhea. Her GI doctor used to be Dr. Dejesus, but he does not take her insurance anymore so she is finding a new GI doctor. Reports she recently had a colonoscopy and was worked up for ulcerative colitis which was negative. Denies fever, chest pain, shortness of breath, or dysuria. <Riya Orlando PA-C - Last Filed: 08/15/20 13:53> Related Data Home medications: Home Medications Medication Instructions Recorded Confirmed pregabalin [Lyrica] 50 mg PO TID 05/21/20 06/26/20 blood sugar diagnostic #10 each 06/26/20 06/26/20 <MARY KATE Cabrera Last Filed: 08/15/20 13:53> Allergies/Adverse reactions: Allergies Allergy/AdvReac Type Severity Reaction Status Date / Time Cephalosporins Allergy Mild Rash Verified 06/14/20 14:29 phenylephrine Allergy Mild Unknown Verified 06/14/20 14:29 pyrilamine Allergy Mild Unknown Verified 06/14/20 14:29 adhesive tape Allergy Unknown Rash Verified 06/14/20 14:29 atorvastatin Allergy Unknown Muscle Verified 06/14/20 14:29 Spasms,Muscle Spasms cefaclor Allergy Unknown Dyspnea / Verified 06/14/20 14:29 SOB,Unknown chlorpheniramine Allergy Unknown Dyspnea / Verified 06/14/20 14:29 SOB,Unknown erythromycin base Allergy Unknown Rash,Unknow Verified 06/14/20 14:29 n Penicillins Allergy Unknown Rash,Unknow Verified 06/14/20 14:29 n Sulfa (Sulfonamide Allergy Unknown Rash,Unknow Verified 06/14/20 14:29 Antibiotics) n metoclopramide [From Reglan] Allergy Anaphylaxis Verified 08/15/20 09:10 AZATADINE MALEATE Allergy Unknown Dyspnea / Uncoded 06/14/20 14:29 SOB METOCLOPRAMIDE HCL Allergy Unknown Palpitation Uncoded 06/14/20 14:29 s PSEUDOEPHEDRINE SULFATE Allergy Unknown Dyspnea / Uncoded 06/14/20 14:29 SOB PYRILAMINE TANNATE Allergy Unknown Dyspnea / Uncoded 06/14/20 14:29 SOB <Riya Orlando PA-C - Last Filed: 08/15/20 13:53> Review of Systems Review of Systems: Narrative: CONSTITUTIONAL: Denies fever CARDIOVASCULAR: Denies chest pain RESPIRATORY: Denies dyspnea. GASTROINTESTINAL: Reports abdominal pain, nausea, diarrhea. Denies vomiting GENITOURINARY: Denies dysuria <iRya Orlando PA-C - Last Filed: 08/15/20 13:53> All systems reviewed & are unremarkable except as noted in HPI and below <Riya Orlando PA-C - Last Filed: 08/15/20 13:53> [facility] Social History Social History: Social History Social History: Lives home with her , daughter and daughter's fiance. Quit smoking over 50 years ago. She smoked a pack a day for about 2-3 years. No alcohol or drug use. She is a full code. She nominated her daughter Casimiro to be the individual who would make medical decisions for her if she is not able. 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
[2020-08-15 09:14] LABS: Basophils Absolute Auto 0.1 K/mm3 (0.0-0.1); Basophils Percent Auto 0.8 % (0.2-1.2); Eosinophils Absolute Auto 0.1 K/mm3 (0-0.3); Eosinophils Percent Auto 1.2 % (0-4.4); Hematocrit 42.5 % (37.0-47.0); Immature Granulocyte Absolute 0.03 K/mm3 (0.00-0.031); Immature Granulocyte Percent A 0.3 % (0-0.5); Lymphocytes Absolute Auto 2.04 K/mm3 (0.9-3.2); Lymphocytes Percent Auto 20.9 % (18.3-44.2); Mean Corpuscular HGB Conc 30.6 g/dl (32-36); Mean Corpuscular Hemoglobin 24.9 pg (26-34); Mean Corpuscular Volume 81.3 fl (80-100); Monocytes Absolute Auto 0.7 K/mm3 (0.1-0.6); Monocytes Percent Auto 7.1 % (2.6-8.5); Neutrophils Absolute Auto 6.8 K/mm3 (1.3-6.7); Neutrophils Percent Auto 69.7 % (45.5-73.1); Platelet Count Result 289 k/mm3 (150-375); Red Blood Count 5.23 M/mm3 (4.2-5.4); Red Cell Distribution Width 14.6 % (11.5-14.5); White Blood Count 9.8 K/mm3 (4.5-10.0)
--- NOTE | 2020-08-15 09:29 | PC.NURSE ---
Pt up to commode, pt incontinent of moderate amt of stool/liquid. Brown liquid stool collected prn.
[2020-08-15 09:37] LABS: Alanine Aminotransferase 14 U/L (4-35); Albumin Level 4.4 g/dL (3.5-5.1); Alkaline Phosphatase 64 U/L (38-126); Anion Gap 9 mmol/L (8-16); Aspartate Amino Transferase 37 U/L (14-36); Bilirubin,Total 0.6 mg/dL (0.2-1.3); Blood Urea Nitrogen 18 mg/dL (7-17); Calcium 10.3 mg/dL (8.4-10.2); Carbon Dioxide 29 mmol/L (22-30); Chloride 103 mmol/L (98-107); Estimated CRCL calculation 44 ml/min; Estimated Glomerular Filt Rate 55; Glucose 125 mg/dL (65-105); Lipase 80 U/L (23-300); Potassium 4.1 mmol/L (3.4-5.0); Sodium 141 mmol/L (137-145)
[2020-08-15] MEDS: ONDANSETRON INJ 4 MG/2 ML VIAL IV PUSH (10:07)
[2020-08-15] MEDS: SODIUM CHLORIDE 0.9% IV 1,000 ML 999 ML IV CONT (10:07)
--- NOTE | 2020-08-15 10:11 | PC.NURSE ---
Pt returns from CT with contrast, meds initiated. Pt suddenly c/o anxiety something's going on! I'm going to pass out! I'm allergic to something something's not right! . This was after administration of zofran, pt states she's had zofran in the past and is certain it's from the IV dye. No rash, or hives noted. Hx of panic attacks. Pt states don't leave me . PAIGE Ritter at bedside to evaluate.
[2020-08-15] MEDS: LORazepam INJ (*CRX) 2 MG/ML VIAL (10:17)
--- NOTE | 2020-08-15 10:24 | ECG_ITS ---
Measurements Intervals Gentry Rate: 74 P: 229 IA: 117 QRS: 34 QRSD: 91 T: 20 QT: 393 QTc: 437 Interpretive Statements SINUS OR ECTOPIC ATRIAL RHYTHM WITH SHORT IA INTERVAL BORDERLINE ST ABNORMALITY- ANTEROLAT/HIGH LAT LEADS BASELINE ARTIFACT- I, III, AVL BORDERLINE ECG Electronically Signed On 08-15-2020 10:37:54 CDT by Moises Cuello D.O.
--- NOTE | 2020-08-15 10:30 | PC.NURSE ---
Pt had large diarrhea stool upon arrival, speciman collected for analysis.
--- NOTE | 2020-08-15 10:36 | PC.NURSE ---
Pt denies chest tightness, shortness of breath, or any remaining sxs. Straight cath for urine completed. Pt without complaints.
[2020-08-15 11:00] LABS: Add Urine Microscopic? YES; Appearance Urine Clear (Clear); Bilirubin Urine Negative (Negative); Blood Urine 1+ (Negative); Color Urine Straw (Yellow); Glucose Urine UA 3+ mg/dL (Negative); Ketones Urine Negative (Negative); Leukocyte Esterase Ur Trace LEU/UL (Negative); Nitrate Urine Negative (Negative); Protein Urine 1+ mg/dL (Negative); RBC Urine 0-2 /hpf (0-2); Squamous Epithelial Cell Urine Rare /hpf (Few); Urobilinogen Urine Negative mg/dL (<2.0)
--- NOTE | 2020-08-15 11:33 | PC.NURSE ---
Pt states is feeling much better. Denies nausea or any further diarrhea since on arrival.
--- NOTE | 2020-08-15 12:39 | PC.NURSE ---
Pt states is feeling better, inquiring about test results. Awaiting disposition per PAIGE Ace
--- NOTE | 2020-08-15 12:45 | PC.NURSE ---
Pt up to commode for voided urine. Has not had any further diarrhea since arrival.
[2020-08-19 17:33] LABS: Rotavirus Stool Not Detected
[2020-08-24 13:00] LABS: Norovirus RNA PCR, Stool NOT DETECTED
== END 2020-08-15 14:21 | disposition home or self-care (01) ==
PROVIDERS: Physician Assistant; Emergency Provider Emergency Medicine; PCP Emergency Medicine
DX: R19.7 Diarrhea, unspecified (principal); Z87.891 Personal history of nicotine dependence; K42.9 Umbilical hernia without obstruction or gangrene; R93.2 Abnormal findings on diagnostic imaging of liver and biliary tract; R82.998 Other abnormal findings in urine
CPT/HCPCS: 36415; 51701; 74177; 80053; 81001; 83690; 85025; 87045; 87046; 87086; 87177; 87209; 87324; 87425; 87427; 87798; 89055; 93005; 96361; 96374; 96375; 99284; J0131; J2060; J2405; J7030; Q9967

== ENCOUNTER 2020-08-20 19:14 | Emergency (ER) | payer MEDICARE, MEDICAID, SELFPAY ==
--- NOTE | ~2020-08-20 | CT_ITS ---
EXAMINATION: CT lumbar spine wo con DATE: 08/20/2020 19:56 INDICATION: Low back pain post fall TECHNIQUE: Computed tomography (CT) of the lumbar spine was performed without intravenous contrast. A utomated exposure control and iterative reconstruction technique were employed. The dose-length produ ct was 964.84 mGy-cm. COMPARISON: Lumbar spine MR dated 04/06/2020 FINDINGS: Minimal lumbar levocurvature. Sagittal alignment is normal. Unchanged minimal likely physiologic ante rior wedging at T12. No significant interval change in a previously acute L4 burst fracture with supe rior endplate depression resulting in 40% anterior and 60% central vertebral body height loss and wi th 5 mm retropulsion resulting in moderate central canal stenosis. Remaining vertebral body heights are normal. No acute fracture. Mild to moderate right-sided predominant disc height loss at T11-T12. Mild disc height loss at L1-L2, L2-L3 and L4-L5. Vacuum phenomena at the L3-L4 disc space. Paraverteb ral soft tissues are unremarkable. The following disc levels are specifically discussed: T11-T12: The disc does not extend beyond the endplate margin. There is mild bilateral facet joint ost eoarthritis. There is no neural foraminal stenosis. There is no central canal stenosis. T12-L1: Disc is minimally bulging. There is mild bilateral facet joint osteoarthritis. There is no ne ural foraminal stenosis. There is no central canal stenosis. L1-L2: Disc is bulging. There is mild bilateral facet joint osteoarthritis. There is mild bilateral n eural foraminal stenosis. There is mild central canal stenosis. L2-L3: Disc is bulging. There is mild bilateral facet joint osteoarthritis. There is moderate bilater al neural foraminal stenosis. There is mild to moderate central canal stenosis. L3-L4: Disc is bulging. There is moderate bilateral facet joint osteoarthritis. There is moderate abisai ateral neural foraminal stenosis. There is moderate central canal stenosis. L4-L5: Disc is mildly bulging. There is severe bilateral facet joint osteoarthritis. There is moderat e bilateral neural foraminal stenosis. There is mild central canal stenosis. L5-S1: The disc does not extend beyond the endplate margin. There is severe bilateral facet joint ost eoarthritis. There is mild bilateral neural foraminal stenosis. There is no central canal stenosis. IMPRESSION: 1. Chronic minimal anterior wedging at T12 and chronic L4 burst fracture. No acute osseous abnormalit y. 2. No significant interval change in moderate lumbar spondylosis. Reviewed, dictated and finalized at location A. IMPRESSION: 1. Chronic minimal anterior wedging at T12 and chronic L4 burst fracture. No ac kenaitze osseous abnormality. 2. No significant interval change in moderate lumbar spondylosis.
--- NOTE | ~2020-08-20 | XR_ITS ---
EXAMINATION: XR pelvis 1-2V DATE: 08/20/2020 20:05 INDICATION: Low back and right hip pain post fall TECHNIQUE: An anteroposterior view of the pelvis was obtained. COMPARISON: 05/21/[address] abdomen and pelvis dated 08/15/2020 FINDINGS: Alignment is normal. Again seen is a chronic L4 burst fracture as detailed on separate lumbar spine C T obtained immediately prior to the current radiographs. No other fractures identified. Mild bilatera l sacroiliac osteoarthritis. Bilateral hip joint spaces appear normal. Couple phleboliths in the righ t hemipelvis. Vascular calcifications along the bilateral femoral arteries. IMPRESSION: 1. No acute osseous abnormality. 2. Chronic L4 burst fracture. See separate lumbar spine CT also dated 08/20/2020 for further detail. Reviewed, dictated and finalized at location A.
[2020-08-20 19:16] VITALS: BP 151/65; PULSE 74; RESP 18; TEMP 35.7; O2SAT 100
--- NOTE | 2020-08-20 19:40 | ED.GENADULT ---
HPI - General Adult General Chief complaint: Fall <MARY KATE Gleason Last Filed: 08/20/20 20:40> Stated complaint: fell out of wheelchair <MARY KATE Gleason Last Filed: 08/20/20 20:40> Time Seen by Provider: 08/20/20 19:29 <MARY KATE Gleason Last Filed: 08/20/20 20:40> Source: patient and family <MARY KATE Gleason Last Filed: 08/20/20 20:40> Mode of arrival: ambulatory <MARY KATE Gleason Last Filed: 08/20/20 20:40> Limitations: no limitations <MARY KATE Gleason Last Filed: 08/20/20 20:40> History of Present Illness HPI narrative: Patient is a 70-year-old female who presents with family for evaluation after having fallen just prior to arrival patient was transitioning from wheelchair to car fell and presents complaining of pain to the sacrum. Patient notes history of lumbar compression fracture which she is being managed by neurosurgery. Patient denies head injury syncope loss of consciousness. Patient notes aching pain to the sacrum denies other injuries or complaints. Patient has not taken anything for pain at this point <MARY KATE Gleason Last Filed: 08/20/20 20:40> Related Data Home medications: Home Medications Medication Instructions Recorded Confirmed pregabalin [Lyrica] 50 mg PO TID 05/21/20 08/18/20 blood sugar diagnostic #10 each 06/26/20 08/18/20 <MARY KATE Gleason Last Filed: 08/20/20 20:40> Allergies/adverse reactions: Allergies Allergy/AdvReac Type Severity Reaction Status Date / Time Cephalosporins Allergy Mild Rash Verified 08/20/20 20:41 phenylephrine Allergy Mild Unknown Verified 08/20/20 20:41 pyrilamine Allergy Mild Unknown Verified 08/20/20 20:41 adhesive tape Allergy Unknown Rash Verified 08/20/20 20:41 atorvastatin Allergy Unknown Muscle Verified 08/20/20 20:41 Spasms,Muscle Spasms cefaclor Allergy Unknown Dyspnea / Verified 08/20/20 20:41 SOB,Unknown chlorpheniramine Allergy Unknown Dyspnea / Verified 08/20/20 20:41 SOB,Unknown erythromycin base Allergy Unknown Rash,Unknow Verified 08/20/20 20:41 n Penicillins Allergy Unknown Rash,Unknow Verified 08/20/20 20:41 n Sulfa (Sulfonamide Allergy Unknown Rash,Unknow Verified 08/20/20 20:41 Antibiotics) n metoclopramide [From Reglan] Allergy Anaphylaxis Verified 08/20/20 20:41 AZATADINE MALEATE Allergy Unknown Dyspnea / Uncoded 08/20/20 20:41 SOB METOCLOPRAMIDE HCL Allergy Unknown Palpitation Uncoded 08/20/20 20:41 s PSEUDOEPHEDRINE SULFATE Allergy Unknown Dyspnea / Uncoded 08/20/20 20:41 SOB PYRILAMINE TANNATE Allergy Unknown Dyspnea / Uncoded 08/20/20 20:41 SOB <Carlos Clement PA-C - Last Filed: 08/20/20 20:40> Review of Systems Review of Systems: All systems reviewed & are unremarkable except as noted in HPI and below <Carlos Clement PA-C - Last Filed: 08/20/20 20:40> [facility] Past Medical History Medical History: Medical History A-fib Patient stated that she had 1 run of it but no longer is in AFib. She is not being treated for it. 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
[2020-08-20 20:07] VITALS: BP 159/86; PULSE 71; RESP 18; TEMP 36.3; O2SAT 99
--- NOTE | 2020-08-20 20:15 | PC.NURSE ---
Patient reports that she was supposed to have a cervical spine fusion done last week, but do to being ill it has been rescheduled to September 29. Also reports history lumbar fractures that are not healing well. Lastly she reports that she is being treated for Chron's disease at this time as well.
[2020-08-20 20:46] VITALS: BP 153/79; PULSE 72; RESP 20; TEMP 36.7; O2SAT 100
== END 2020-08-20 20:49 | disposition home or self-care (01) ==
PROVIDERS: Emergency Provider General Practice; PCP Emergency Medicine
DX: S39.92XA Unspecified injury of lower back, initial encounter (principal); I25.10 Atherosclerotic heart disease of native coronary artery without angina pectoris; J45.909 Unspecified asthma, uncomplicated; E78.5 Hyperlipidemia, unspecified; I10 Essential (primary) hypertension; Z86.73 Personal history of transient ischemic attack (TIA), and cerebral infarction without residual deficits; K21.9 Gastro-esophageal reflux disease without esophagitis; F41.9 Anxiety disorder, unspecified; F32.9 Major depressive disorder, single episode, unspecified; E03.9 Hypothyroidism, unspecified; K58.9 Irritable bowel syndrome, unspecified; K74.60 Unspecified cirrhosis of liver; K75.81 Nonalcoholic steatohepatitis (NASH); E11.42 Type 2 diabetes mellitus with diabetic polyneuropathy; G47.30 Sleep apnea, unspecified; Z87.440 Personal history of urinary (tract) infections; Z79.4 Long term (current) use of insulin; Z87.891 Personal history of nicotine dependence; W05.0XXA Fall from non-moving wheelchair, initial encounter
CPT/HCPCS: 72131; 72170; 99284

== ENCOUNTER → 2020-10-22 10:18 | Outpatient (CLI) | payer MEDICARE, MEDICAID, SELFPAY ==
--- NOTE | ~2020-10-22 | MR_ITS ---
EXAMINATION: MR lumbar spine wo con DATE: 10/22/2020 11:22 INDICATION: Intervertebral disc degeneration presenting with low back pain and left hip and leg pain. TECHNIQUE: Magnetic resonance imaging (MRI) of the lumbar spine was performed without intravenous con trast. Sequences included sagittal T2-weighted FSE, sagittal T2-weighted FS FSE, sagittal T1-weighted FSE, and axial T2-weighted FSE. COMPARISON: Lumbar spine CT dated 08/20/2020 and lumbar spine MR dated 04/06/2020 FINDINGS: Alignment is normal. Unchanged minimal likely physiologic anterior wedging at T12. Also unchanged is a chronic L4 burst fracture with superior endplate depression resulting in two thirds central vertebr al body height loss and one third vertebral body height loss at the periphery of the vertebral body. 3-4 mm retropulsion of the posterior rim of the cephalad aspect of the L4 vertebral body. Remaining v ertebral body heights are normal. There is residual mild fibrovascular endplate changes underlying th e superior endplate of L4. Mild fibrofatty degenerative endplate changes along the left anterior aspe ct of the inferior endplate of L1. T1 hyperintense hemangioma at the left side of S1. Otherwise devante l marrow signal. Mild to moderate disc height loss at L2-L3 and mild disc height loss at T11-T12 and remaining levels from L1-L2 through L4-L5. The conus medullaris terminates at L1. There is normal sig nal in the caudal spinal cord. Bilateral T2 hyperintense renal cysts, the largest on the left measuri ng 3.1 cm. paravertebral soft tissues are otherwise unremarkable. The following disc levels are speci fically discussed: T11-T12: Tiny central disc protrusion. There is moderate bilateral facet joint osteoarthritis. There is minimal bilateral neural foraminal stenosis. There is no central canal stenosis. T12-L1: Mild diffuse disc bulge. There is mild bilateral facet joint osteoarthritis. There is minimal left neural foraminal stenosis. There is minimal central canal stenosis. L1-L2: Disc is bulging. There is mild bilateral facet joint osteoarthritis. There is mild left and mi ld to moderate right neural foraminal stenosis. There is mild central canal stenosis. L2-L3: Disc is bulging. There is hypertrophy of the ligamentum flavum. There is mild bilateral facet joint osteoarthritis. There is moderate bilateral neural foraminal stenosis. There is mild to modera te central canal stenosis. L3-L4: Disc is bulging. There is hypertrophy of the ligamentum flavum. There is severe left and moder ate to severe right facet joint osteoarthritis. There is moderate bilateral neural foraminal stenosis . There is moderate central canal stenosis. L4-L5: Disc is mildly bulging. There is severe bilateral facet joint osteoarthritis. There is moderat e bilateral neural foraminal stenosis. There is mild central canal stenosis. L5-S1: The disc does not extend beyond the endplate margin. There is severe bilateral facet joint ost eoarthritis. There is mild bilateral neural foraminal stenosis. There is no central canal stenosis. IMPRESSION: 1. Minimal progression in moderate lumbar spondylosis. 2. Stable appearance since prior CT in a now chronic L4 burst fracture. Reviewed, dictated and finalized at location A. [employer]
== END ==
PROVIDERS: PCP Emergency Medicine; Visit Provider Nurse Practitioner Family
DX: M47.817 Spondylosis without myelopathy or radiculopathy, lumbosacral region (principal); M48.07 Spinal stenosis, lumbosacral region; M47.815 Spondylosis without myelopathy or radiculopathy, thoracolumbar region; M48.05 Spinal stenosis, thoracolumbar region; S32.041A Stable burst fracture of fourth lumbar vertebra, initial encounter for closed fracture
CPT/HCPCS: 72148

== ENCOUNTER 2020-12-22 09:29 | Outpatient (RCR) | payer MEDICARE, MEDICAID, SELFPAY ==
[2020-12-22 09:33] VITALS: BMI 34.9
== END 2021-03-13 11:07 | disposition home or self-care (01) ==
LOC: ANHDMC 09:29
PROVIDERS: PCP Emergency Medicine; Visit Provider Emergency Medicine
DX: E11.65 Type 2 diabetes mellitus with hyperglycemia (principal); Z71.89 Other specified counseling; Z71.3 Dietary counseling and surveillance
CPT/HCPCS: 97802

== ENCOUNTER 2021-02-16 11:05 | Outpatient (CLI) | payer MEDICARE, MEDICAID, SELFPAY | END 2021-02-16 11:06 | disposition home or self-care (01) | LOC: ANHLAB 11:07 | PROVIDERS: PCP Emergency Medicine; Visit Provider Emergency Medicine | DX: N39.0 Urinary tract infection, site not specified (principal) | CPT/HCPCS: 87077; 87086; 87088; 87186 ==

== ENCOUNTER 2021-08-24 12:00 | Emergency (ER) | payer MEDICARE, MEDICAID, SELFPAY ==
--- NOTE | ~2021-08-24 | CT_ITS ---
EXAMINATION: CT abdomen pelvis w con DATE: 08/24/2021 13:06 INDICATION: Abdominal pain and diarrhea TECHNIQUE: Computed tomography (CT) of the abdomen and pelvis was performed with 100 mL Omnipaque-350 intravenous contrast. Automated exposure control and iterative reconstruction technique were employe d. The dose-length product was 1251.20 mGy-cm. COMPARISON: 08/15/2020 FINDINGS: Lung bases are clear. Heart size is normal. Atherosclerotic coronary artery calcification is. No loreta cardial or pleural effusion. Mild wall thickening in the distal esophagus which could be related to r eflux. Postoperative change of prior Marge fundoplication. Gallbladder is not visualized and likely surgically absent. Mild liver surface nodularity consistent with cirrhosis. Spleen, pancreas and bila teral adrenal glands are normal. Multiple bilateral renal cysts the largest on the left measuring 3.4 cm. There is diffuse wall thickening in the distal colon to at least in part to decompressed state a lthough differential includes colitis. Fluid in the proximal colon consistent with diarrhea. A loop o f nonobstructed small bowel extends into a wide mouthed infraumbilical ventral hernia, the orifice me asuring 5.9 x 4.4 cm. There is an additional small fat-containing umbilical hernia. 0No dilated bowel to suggest obstruction. The appendix is not visualized. No pericecal inflammatory change to suggest acute appendicitis. Bladder is normal. The uterus is not identified and has likely been surgically re sected. No free intraperitoneal gas or fluid. No pathologically enlarged abdominal or pelvic lymphade nopathy. Small amount of scattered calcified atherosclerosis of the aorta and many of the other arter ies without evident hemodynamically significant stenosis. Chronic L4 burst fracture with 60% central vertebral body height loss and millimeter retropulsion. Postoperative change of L3 laminectomy. IMPRESSION: 1. Diarrhea with wall thickening the distal colon due at least in part to decompressed state but diff erential also includes colitis could be infectious, inflammatory or less likely ischemic in etiology. 2. Unchanged infraumbilical hernia containing nonobstructed loop of small bowel. 3. Cirrhosis. 4. This and follow-up location with mild wall thickening of the distal esophagus likely related to re flux. Reviewed, dictated and finalized at location B. IMPRESSION: 1. Diarrhea with wall thickening the distal colon due at least in part to decom pressed state but differential also includes colitis could be infectious, infla mmatory or less likely ischemic in etiology. 2. Unchanged infraumbilical hernia containing nonobstructed loop of small bowel . 3. Cirrhosis. 4. This and follow-up location with mild wall thickening of the distal esophagu s likely related to reflux.
[2021-08-24 12:08] VITALS: BP 165/66; PULSE 66; RESP 18; TEMP 37.1; O2SAT 100
--- NOTE | 2021-08-24 12:24 | ED.NAVMDI ---
HPI - Nausea/Vomiting/Diarrhea General Chief complaint: Nausea/Vomiting/Diarrhea Stated complaint: diarrhea Time Seen by Provider: 08/24/21 12:13 Source: RN notes reviewed History of Present Illness HPI Narrative: Patient presents emergency department from home for diarrhea. Patient states symptoms began 3 days ago states she is having approximately 6-8 episodes of watery diarrhea a day states is associated with abdominal pain described as cramping diffuse throughout the abdomen she denies any fevers or chills nausea vomiting or any other symptoms states she has a history of colitis and is followed by Dr. Palacio she denies any recent antibiotic use or any foreign travel Related Data Home Medications Medication Instructions Recorded Confirmed insulin lispro 100 unit/mL 8 unit SUBCUT DAILY ml 03/14/21 08/04/21 subcutaneous solution amlodipine 10 mg tablet 10 mg PO DAILY 04/19/21 08/04/21 insulin glargine 100 unit/mL 24 unit SUBCUT .bedtime ml 08/04/21 08/04/21 subcutaneous solution Allergies Allergy/AdvReac Type Severity Reaction Status Date / Time Quinolones Allergy Intermediate Unknown Verified 08/24/21 12:40 Cephalosporins Allergy Mild Rash Verified 08/24/21 12:40 phenylephrine Allergy Mild Unknown Verified 08/24/21 12:40 pyrilamine Allergy Mild Unknown Verified 08/24/21 12:40 adhesive tape Allergy Unknown Rash Verified 08/24/21 12:40 atorvastatin Allergy Unknown Muscle Verified 08/24/21 12:40 Spasms,Muscle Spasms cefaclor Allergy Unknown Dyspnea / Verified 08/24/21 12:40 SOB,Unknown chlorpheniramine Allergy Unknown Dyspnea / Verified 08/24/21 12:40 SOB,Unknown erythromycin base Allergy Unknown Rash,Unknow Verified 08/24/21 12:40 n Penicillins Allergy Unknown Rash,Unknow Verified 08/24/21 12:40 n Sulfa (Sulfonamide Allergy Unknown Rash,Unknow Verified 08/24/21 12:40 Antibiotics) n metoclopramide [From Reglan] Allergy Anaphylaxis Verified 08/24/21 12:40 AZATADINE MALEATE Allergy Unknown Dyspnea / Uncoded 08/24/21 12:40 SOB METOCLOPRAMIDE HCL Allergy Unknown Palpitation Uncoded 08/24/21 12:40 s PSEUDOEPHEDRINE SULFATE Allergy Unknown Dyspnea / Uncoded 08/24/21 12:40 SOB PYRILAMINE TANNATE Allergy Unknown Dyspnea / Uncoded 08/24/21 12:40 SOB Review of Systems Review of Systems: Gen.: Denies fevers or chills ENT: Denies congestion Respiratory: Denies shortness of breath or cough CV: Denies chest pain or palpitations GI: See HPI denies burning, urgency, frequency or hematuria Musculoskeletal: Denies back pain or muscle pain Neuro: Denies numbness, tingling, weakness or focal weakness Skin: Denies rash Except as documented, all other systems reviewed and negative PMFSH Past Medical History Medical History A-fib Patient stated that she had 1 run of it but no longer is in AFib. She is not being treated for it. 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
[2021-08-24 12:36] LABS: Basophils Absolute Auto 0.1 K/mm3 (0.0-0.1); Basophils Percent Auto 0.6 % (0.2-1.2); Eosinophils Absolute Auto 0.1 K/mm3 (0-0.3); Eosinophils Percent Auto 1.3 % (0-4.4); Hematocrit 41.6 % (37.0-47.0); Hemoglobin 12.5 g/dL (12.0-15.0); Immature Granulocyte Absolute 0.02 K/mm3 (0.00-0.031); Immature Granulocyte Percent A 0.3 % (0-0.5); Lymphocytes Absolute Auto 1.52 K/mm3 (0.9-3.2); Lymphocytes Percent Auto 19.3 % (18.3-44.2); Mean Corpuscular Hemoglobin 25.8 pg (26-34); Mean Platelet Volume 10.3 fl (7.4-10.4); Monocytes Absolute Auto 0.4 K/mm3 (0.1-0.6); Monocytes Percent Auto 4.6 % (2.6-8.5); Neutrophils Absolute Auto 5.8 K/mm3 (1.3-6.7); Neutrophils Percent Auto 73.9 % (45.5-73.1); Platelet Count Result 236 k/mm3 (150-375); Red Blood Count 4.84 M/mm3 (4.2-5.4); Red Cell Distribution Width 13.5 % (11.5-14.5); White Blood Count 7.9 K/mm3 (4.5-10.0)
[2021-08-24] MEDS: SODIUM CHLORIDE 0.9% IV 1,000 ML 999 ML IV CONT (12:38)
[2021-08-24 12:46] LABS: Alanine Aminotransferase 17 U/L (4-35); Albumin Level 4.5 g/dL (3.5-5.1); Alkaline Phosphatase 75 U/L (38-126); Anion Gap 11 mmol/L (8-16); Aspartate Amino Transferase 33 U/L (14-36); Bilirubin,Total 0.4 mg/dL (0.2-1.3); Blood Urea Nitrogen 18 mg/dL (7-17); Calcium 9.4 mg/dL (8.4-10.2); Carbon Dioxide 26 mmol/L (22-30); Chloride 103 mmol/L (98-107); Estimated CRCL calculation 52 ml/min; Estimated Glomerular Filt Rate > 60; Glucose 154 mg/dL (65-110); Lipase 57 U/L (23-300); Potassium 3.6 mmol/L (3.4-5.0); Sodium 140 mmol/L (137-145)
[2021-08-24 13:45] LABS: Lactic Acid Reflex 1.8 mmol/L (0.7-2.1)
[2021-08-24 14:10] VITALS: BP 144/88; PULSE 76; RESP 18; O2SAT 98
[2021-08-24] MEDS: metroNIDAZOLE 250 MG TABLET 500 MG PO (14:10)
== END 2021-08-24 14:12 | disposition home or self-care (01) ==
PROVIDERS: Emergency Provider Emergency Medicine; PCP Emergency Medicine
DX: K52.9 Noninfective gastroenteritis and colitis, unspecified (principal); E11.42 Type 2 diabetes mellitus with diabetic polyneuropathy; M79.7 Fibromyalgia; I10 Essential (primary) hypertension; E78.5 Hyperlipidemia, unspecified; K58.9 Irritable bowel syndrome, unspecified; K75.81 Nonalcoholic steatohepatitis (NASH); K74.60 Unspecified cirrhosis of liver; K21.9 Gastro-esophageal reflux disease without esophagitis; G47.30 Sleep apnea, unspecified; Z86.73 Personal history of transient ischemic attack (TIA), and cerebral infarction without residual deficits; Z87.440 Personal history of urinary (tract) infections; Z79.4 Long term (current) use of insulin; Z98.84 Bariatric surgery status; Z87.891 Personal history of nicotine dependence; K42.9 Umbilical hernia without obstruction or gangrene
CPT/HCPCS: 36415; 74177; 80053; 83605; 83690; 85025; 99284; A9270; J7030; Q9967

== ENCOUNTER 2021-12-12 11:23 | Outpatient (CLI) | payer MEDICARE, MEDICAID, SELFPAY ==
--- NOTE | ~2021-12-12 | US_ITS ---
US abdomen limited INDICATION: Cirrhosis PROCEDURE: Realtime right upper abdominal ultrasound. COMPARISON: CT dated 08/24/2021 FINDINGS: The pancreas is normal without focal mass or pancreatic ductal dilation. Liver echotexture is heterogeneous. There is nodular appearance to the liver surface, consistent with cirrhosis. No di screte liver masses are identified. There is normal directional flow in the portal vein. Gallbladder is surgically absent. Common bile duct measures 6 mm. No sonographic Gold's sign. IMPRESSION: 1: Cirrhosis. Reviewed, dictated and finalized at location B. [employer] TE[employer]ER IMPRESSION: 1: Cirrhosis.
== END 2021-12-12 11:24 | disposition home or self-care (01) ==
LOC: ANHIMG 11:32
PROVIDERS: Visit Provider Internal Medicine Gastroenterology
DX: K74.69 Other cirrhosis of liver (principal)
CPT/HCPCS: 76705